=== PATIENT | female | born 1960 | race Caucasian/White ===

== ENCOUNTER → 2017-11-27 13:59 | Outpatient (CLI) | payer OTHER, SELFPAY ==
[2017-11-27 14:27] LABS: Urine Cocaine Negative (Negative); Urine Tetrahydrocannabinol Negative (Negative)
[2017-11-27 14:28] LABS: Urine Amphetamines Negative (Negative); Urine Barbiturates Negative (Negative); Urine Benzodiazepines Positive (Negative); Urine MDMA Negative (Negative); Urine Methadone Negative (Negative); Urine Methamphetamines Negative (Negative); Urine Morphine/Opi cutoff 2000 Negative (Negative); Urine Oxycodone Positive (Negative); Urine Phencyclidine Negative (Negative); Urine Tricyclic Antidepressant Negative (Negative)
== END ==
PROVIDERS: PCP Internal Medicine; Visit Provider Internal Medicine
DX: F11.10 Opioid abuse, uncomplicated (principal)
CPT/HCPCS: 80305

== ENCOUNTER → 2018-01-08 16:50 | Outpatient (CLI) | payer OTHER, SELFPAY ==
--- NOTE | 2018-01-08 16:52 | DI.RAD.S_ITS ---
PROCEDURE: XR LUMBAR SPINE 2-3V INDICATIONS: monitor surgical hardware placement TECHNIQUE: 3 views of the lumbar spine were acquired. COMPARISON: [facility], CT, CT LUMBAR SPINE WITHOUT CONTRAST, 09/11/2017, 12:09. [facility], , SPINE LUMB 2 OR 3VW, 01/24/2017, 10:49. [facility], , SPINE LUMB 2 OR 3VW, 08/22/2016, 14:49. [facility], , L-SPINE 2-3 VIEWS, 01/21/2016, 8:34. FINDINGS: Bones: 5 [id number] vertebrae are present. Moderate dextroscoliosis redemonstrated. Multilevel posterior/interbody fusion redemonstrated from the L2 through the S1 level with hardware in expected unchanged positions. Bony alignment is unchanged. No acute bony abnormality seen. No vertebral body compression fractures. No suspicious bony lesions. Soft tissues: Overlying bowel gas pattern is normal. No suspicious soft tissue calcifications. IMPRESSION: Stable postsurgical sequelae as above. Dictated by: Aubrey Mars [facility] Interpreted: Enoc Chris MD on 01/08/2018 at 17:19 Approved by: Enoc Chris M.D. on 01/09/2018 at 12:25
== END ==
PROVIDERS: PCP Internal Medicine; Visit Provider Internal Medicine
DX: M54.5 Low back pain (principal); G89.29 Other chronic pain; Z98.1 Arthrodesis status
CPT/HCPCS: 72100

== ENCOUNTER 2018-01-10 12:44 | Emergency (ER) | payer OTHER, SELFPAY ==
[2018-01-10 12:54] VITALS: BP 146/79; PULSE 81; RESP 18; TEMP 37; O2SAT 98; BMI 25.1
--- NOTE | 2018-01-10 13:11 | DI.RAD.S_ITS ---
PROCEDURE: XR CHEST 2V INDICATIONS: chest tightness TECHNIQUE: 2 views of the chest were acquired. COMPARISON: [facility], , XR CXR 2 VIEW, 11/01/2000, 9:12. FINDINGS: Surgical changes and devices: None. Lungs and pleura: No pleural effusions or pneumothorax. Lungs are clear. Mediastinum: Mediastinal contours are normal. Heart size is normal. Bones and chest wall: No suspicious bony abnormalities. Soft tissues appear unremarkable. Degenerative changes noted in thoracic spine. There is discectomy and posterior fusion lumbar spine. IMPRESSION: No acute cardiopulmonary disease. Dictated by: Christiano Carmen M.D. on 01/10/2018 at 13:47 Approved by: Christiano Carmen M.D. on 01/10/2018 at 13:47
[2018-01-10] MEDS: ASPIRIN 81 MG TAB 324 MG PO (13:16)
--- NOTE | 2018-01-10 13:40 | PC.NURSE ---
States is here for sinus infection. But since she was here she thought she would have her CP and a lump at the end of her sternum. Ekg and labs done in triage. States this has been going on for weeks
[2018-01-10 13:47] LABS: Add Manual Diff / Slide Review NO; Basophils Percent Auto 0.4 % (0-2); Eosinophils Percent Auto 1.6 % (2-4); Hematocrit 40.5 % (36-46); Hemoglobin 13.9 g/dL (12.0-16.0); Lymphocytes Percent Auto 22.1 % (25-40); Mean Corpuscular HGB Conc 34.3 % (30-36); Mean Corpuscular Hemoglobin 30.8 PG (26-34); Mean Corpuscular Volume 89.6 fL (80-100); Monocytes Percent Auto 7.1 % (3-14); Neutrophils Absolute Auto 4400 /uL (3000-5900); Neutrophils Percent Auto 68.8 % (50-75); Platelet Count 253 X10^3/uL (150-400); Red Blood Cell Count 4.52 X10^6/uL (4.0-5.2); Red Cell Distribution Width 12.6 % (11.6-14.8); White Blood Cell Count 6.3 X10^3/uL (4.5-11.0)
[2018-01-10 13:52] LABS: Prothrombin Time 11.3 SECONDS (10.1-12.7)
[2018-01-10 13:55] LABS: PTT Partial Thromboplastin Tim 33 SECONDS (26.4-36.2)
[2018-01-10 14:02] LABS: Alanine Aminotransferase 28 IU/L (9-52); Albumin 4.7 g/dL (3.5-5.0); Albumin Globulin Ratio 1.6 (1.0-2.8); Alkaline Phosphatase 63 U/L (38-126); Aspartate Aminotransferase 28 IU/L (14-36); Bilirubin Total 0.5 mg/dL (0.2-1.3); Blood Urea Nitrogen 13 mg/dL (7-17); Calcium 9.7 mg/dL (8.4-10.2); Carbon Dioxide 24 mmol/L (22-32); Chloride 106 mmol/L (98-107); Creatine Kinase 52 U/L (30-135); Estimated Glomerular Filt Rate > 60.0 mL/min (>60); Glucose 113 mg/dL (70-100); HEMOLYSIS < 15 (0-50); Lipase 154 U/L (23-300); Potassium 4.1 mmol/L (3.4-5.1); Sodium 144 mmol/L (137-145); Total Protein 7.7 g/dL (6.3-8.2)
[2018-01-10 14:18] LABS: Troponin I < 0.012 ng/mL (0.01-0.034)
--- NOTE | 2018-01-10 14:22 | ED_ITS ---
HPI - Chest Pain General Chief Complaint: Chest Pain Stated Complaint: CHEST TIGHTNESS,WEAKNESS,JAW PAIN,SINUS INFECTION Time Seen by Provider: 01/10/18 13:52 Source: patient Mode of arrival: ambulatory Limitations: no limitations History of Present Illness HPI narrative: Patient is a 57-year-old female who presents with a variety of complaints. She has had a left earache she has some sinus pain she had some chest discomfort she said she had a temperature tympanically over 101 over last 3 days. She overall does not feel well. She denies any productive cough. She was having some chest tightness but that has now improved. She feels like she has a sinus infection. MD complaint: chest pain Related Data Home Medications Medication Instructions Recorded Confirmed multivitamin with minerals 1 tab PO QDAY #0 08/04/11 01/10/18 magnesium oxide 400 mg PO QPM #0 01/21/16 01/10/18 ascorbic acid (vitamin C) 500 mg PO QDAY #0 11/29/16 01/10/18 calcium carbonate 1 tab PO DIRECTED #0 11/29/16 01/10/18 vitamin B complex [B 1 tab PO DAILY #0 11/29/16 01/10/18 Complex-Vitamin B12] coenzyme Q10 [Co Q-10] 100 mg PO QDAY #0 03/23/17 01/10/18 cholecalciferol (vitamin D3) 10,000 unit PO DAILY #0 06/01/17 01/10/18 Iron Melts 1 tab SUBLINGUAL DAILY 01/10/18 01/10/18 bimatoprost [Latisse] 1 applic TOPICAL BEDTIME 01/10/18 01/10/18 krill oil 1 cap PO DAILY 01/10/18 01/10/18 Previous Rx's Medication Instructions Recorded progesterone micronized 200 mg PO BID #60 cap 01/22/17 estradiol-norethindrone acet 1 tab PO Q DAY #3 pac 05/23/17 [Activella] diclofenac sodium 50 mg PO BIDCC #60 tab 08/09/17 triamterene 37.5 1 tab PO DAILY #30 tab 10/15/17 mg-hydrochlorothiazide 25 mg tablet hydroxyzine HCl 50 mg tablet 50 mg PO BEDTIME #30 tab 11/26/17 cyclobenzaprine 10 mg tablet 10 mg PO Q8HP PRN #20 tab 12/17/17 oxycodone 5 mg tablet 5 mg PO TID #90 tab 12/25/17 tramadol 50 mg tablet 50 mg PO Q6H #30 tab 12/25/17 trazodone 100 mg tablet 100 mg PO DAILY #30 tab 12/25/17 zolpidem 10 mg tablet 10 mg PO BEDTIME PRN #15 tab 12/25/17 doxycycline monohydrate 100 mg PO BID #14 cap 01/10/18 Allergies Allergy/AdvReac Type Severity Reaction Status Date / Time latex [LATEX] Allergy Unknown MOUTH Verified 01/10/18 13:00 BECAME RAW gabapentin [GABAPENTIN] AdvReac Mild cognitive Verified 01/10/18 13:00 fog related to dose metoprolol [METOPROLOL] AdvReac Mild abd Verified 01/10/18 13:00 distress and myalgias amoxicillin [AMOXICILLIN] AdvReac Unknown Pt claims Verified 01/10/18 13:00 caused her throat to close up Review of Systems Review of Systems All systems reviewed & are unremarkable except as noted in HPI and below Constitutional Reports body ache(s), Reports chills and Reports fever(s) Eyes Denies change in vision, Denies eye discharge, Denies irritation and Denies loss of vision ENT Ears, Nose, Mouth, and Throat: Reports as per HPI, Denies dizziness, Reports otalgia, Reports facial pain and Denies tongue swelling Cardiovascular Reports chest pain Respiratory Denies cough, Denies excessive phlegm production and Denies stridor Gastrointestinal Gastrointestinal: Denies diarrhea and Denies loose stools Integumentary/Breasts Denies pruritus, Denies erythema, Denies rash and Denies wounds Neurologic Denies dizziness and Denies loss of vision Allergic/Immunologic Denies tongue swelling PFSH Medical History ADHD (attention deficit hyperactivity disorder) (Chronic) Anxiety (Chronic) Hypertension (Chronic) 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) ANNABELLA (stress urinary incontinence, female) (Resolved) Surgical History History of abdominoplasty (Resolved 2003) History of abdominoplasty (Resolved 2010) History of stress incontinence procedure using tension free vaginal tape ( Resolved 08/16/09) Status post colonoscopy (Resolved 03/01/12) Status post laminectomy (Resolved 2015) Social History Smoking Status: Former smoker Exam Initial Vital Signs Initial Vital Signs: Vital Signs Temperature 98.6 F 01/10/18 12:54 Pulse Rate 81 01/10/18 12:54 Respiratory Rate 18 01/10/18 12:54 Blood Pressure 146/79 H 01/10/18 12:54 Pulse Oximetry 98 01/10/18 12:54 GENERAL: Anxious female alert oriented x3 HEENT: Head atraumatic,EOMI, pupils reactive, face symmetric, moist mucous membranes, tender over frontal sinuses EARS: Tympanic membranes visualized, no erythema or bulging, no hemotympanum CARDIOVASCULAR: Regular rate and rhythm without murmurs, rubs or gallops. RESPIRATORY: Breath sounds equal bilaterally, no wheezes rales or rhonchi. ABDOMEN: Soft, nontender. Normoactive bowel sounds all 4 quadrants. No guarding or rebound. EXTREMITIES: Normal range of motion, no clubbing or edema. Neurovascularly intact NEUROLOGICAL: Alert and oriented x4.Normal gait and speech. SKIN: Warm, dry, no laceration, no petechiae, no rashes or lesions. Course Orders Ordered: ED Orders 01/10/18 13:11 Chest [XR chest 2V] Stat EKG-12 Lead Stat 01/10/18 13:20 Complete Blood Count AUTO DIFF Stat Comprehensive Metabolic Panel Stat Lipase Stat Partial Thromboplastin Time Stat Prothrombin Time INR Stat Troponin & CK Cardiac Panel Stat Discontinued Medications Aspirin (Aspirin Chew) 324 mg PO NOW ONE Stop: 01/10/18 13:14 Last Admin: 01/10/18 13:16 Dose: 324 mg Vital Signs - 8 hr 01/10/18 12:54 01/10/18 14:29 01/10/18 14:39 Temperature 98.6 F Pulse Rate 81 66 59 L Respiratory Rate 18 14 16 Blood Pressure 146/79 H 118/84 Blood Pressure [Right Arm] 118/84 Pulse Oximetry 98 99 98 MDM - Chest Pain Lab Data Attestation: I reviewed the patient's lab results. Result diagrams: 01/10/18 13:20 01/10/18 13:20 Lab Results 01/10/18 01/10/18 01/10/18 Range/Units 13:20 13:20 13:20 WBC 6.3 (4.5-11.0) X10^3/uL RBC 4.52 (4.0-5.2) X10^6/uL Hgb 13.9 (12.0-16.0) g/dL Hct 40.5 (36-46) % MCV 89.6 (80-100) fL MCH 30.8 (26-34) PG MCHC 34.3 (30-36) % RDW 12.6 (11.6-14.8) % Plt Count 253 (150-400) X10^3/uL Neut % (Auto) 68.8 (50-75) % Lymph % (Auto) 22.1 L (25-40) % [place] % (Auto) 7.1 (3-14) % Eos % (Auto) 1.6 L (2-4) % Baso % (Auto) 0.4 (0-2) % Neut # (Auto) 4400 (6106-9578) /uL PT 11.3 (10.1-12.7) SECONDS INR 1.0 (0.9-1.3) APTT 33 (26.4-36.2) SECONDS Sodium 144 (137-145) mmol/L Potassium 4.1 (3.4-5.1) mmol/L Chloride 106 (98-107) mmol/L Carbon Dioxide 24 (22-32) mmol/L BUN 13 (7-17) mg/dL Creatinine 0.50 L (0.52-1.04) mg/dL Estimated GFR > 60.0 (>60) mL/min BUN/Creatinine Ratio 26.0 H (6-22) Glucose 113 H (70-100) mg/dL Calcium 9.7 (8.4-10.2) mg/dL Total Bilirubin 0.5 (0.2-1.3) mg/dL AST 28 (14-36) IU/L ALT 28 (9-52) IU/L Alkaline Phosphatase 63 (38-126) U/L Total Creatine Kinase 52 (30-135) U/L Troponin I < 0.012 (0.01-0.034) ng/mL Total Protein 7.7 (6.3-8.2) g/dL Albumin 4.7 (3.5-5.0) g/dL Globulin 3.0 (1.7-4.1) g/dL Albumin/Globulin Ratio 1.6 (1.0-2.8) Lipase 154 (23-300) U/L Urine Dip Bedside Urine Glucose Negative Bedside Urine Bilirubin - Negative Bedside Urine Ketone - Negative Urine Specific Peterson 1.015 Bedside Urine Occult Blood - Negative Bedside Urine pH 6.0 Bedside Urine Protein - Negative Bedside Urine Urobilinogen - Negative Bedside Urine Nitrite - Negative Bedside Urine Leukocytes - Negative Esterase Imaging Data Chest x-ray: Radiologist's impression: PROCEDURE: XR CHEST 2V INDICATIONS: chest tightness TECHNIQUE: 2 views of the chest were acquired. COMPARISON: [facility], , XR CXR 2 VIEW, 11/01/2000, 9:12. FINDINGS: Surgical changes and devices: None. Lungs and pleura: No pleural effusions or pneumothorax. Lungs are clear. Mediastinum: Mediastinal contours are normal. Heart size is normal. Bones and chest wall: No suspicious bony abnormalities. Soft tissues appear unremarkable. Degenerative changes noted in thoracic spine. There is discectomy and posterior fusion lumbar spine. IMPRESSION: No acute cardiopulmonary disease. Dictated by: Christiano Carmen M.D. on 01/10/2018 at 13:47 ECG Data Attestation: I personally reviewed and interpreted this ECG as follows: Prior ECG tracings: available for review Interpretation: Normal sinus rhythm rate [address] changes artifact noted no T- wave inversions similar to previous EKG MT interval 137, QRS 87, QTC 391 MDM Narrative Medical decision making narrative: Patient overall is feeling better. She really is complaining of her sinuses she has had temperature. At this time will treat for sinusitis. Her chest pain seems to have resolved. Discharge Plan Departure Patient Disposition: Home Clinical Impression: Atypical chest pain, Sinusitis Discharge Date/Time: 01/10/18 14:39 Interventions: ED Discharge Assessment Last Done: 01/10/18 14:39 Instructions: Sinusitis, DI for Atypical Chest Pain Activity Restrictions/Additional Instructions: *You have been diagnosed with atypical chest pain, sinusitis *What to do: Rest, fever control, increase fluids *Continue to take medications as directed Doxycycline 100 mg twice a day for 7 days--faxed to [facility] in and [place] *Follow up with your primary care provider in 2-3 days *Return to ER if you should have any new, worsening or concerning symptoms Prescriptions: New doxycycline monohydrate 100 mg capsule 100 mg PO BID Qty: 14 RF: 0 No Action multivitamin with minerals Tablet 1 tab PO QDAY Qty: 0 RF: 0 magnesium oxide 400 MG tablet 400 mg PO QPM Qty: 0 RF: 0 ascorbic acid (vitamin C) 500 MG tablet 500 mg PO QDAY Qty: 0 RF: 0 calcium carbonate 200 MG tablet,chewable 1 tab PO DIRECTED Qty: 0 RF: 0 vitamin B complex [B Complex-Vitamin B12] 1 EACH tablet 1 tab PO DAILY Qty: 0 RF: 0 progesterone micronized 200 MG capsule 200 mg PO BID Qty: 60 RF: 11 coenzyme Q10 [Co Q-10] 100 MG capsule 100 mg PO QDAY Qty: 0 RF: 0 estradiol-norethindrone acet [Activella] 1 MG/0.5 MG tablet 1 tab PO Q DAY Qty: 3 RF: 3 cholecalciferol (vitamin D3) 10,000 UNIT tablet 10,000 unit PO DAILY Qty: 0 RF: 0 diclofenac sodium 50 MG tablet,delayed release (DR/EC) 50 mg PO BIDCC Qty: 60 RF: 5 triamterene-hydrochlorothiazid 37.5-25 mg tablet 1 tab PO DAILY Qty: 30 RF: 5 hydroxyzine HCl 50 mg tablet 50 mg PO BEDTIME Qty: 30 RF: 1 cyclobenzaprine 10 mg tablet 10 mg PO Q8HP PRN (Reason: muscle spasm) Qty: 20 RF: 0 trazodone 100 mg tablet 100 mg PO DAILY Qty: 30 RF: 1 zolpidem 10 mg tablet 10 mg PO BEDTIME PRN (Reason: insomnia) Qty: 15 RF: 0 oxycodone 5 mg tablet 5 mg PO TID Qty: 90 RF: 0 tramadol 50 mg tablet 50 mg PO Q6H Qty: 30 RF: 0 bimatoprost [Latisse] 0.03 % Drops With Applicator 1 applic Topical BEDTIME RF: 0 Iron Melts 1 tab Sublingual DAILY RF: 0 krill oil 1 cap PO DAILY RF: 0 Referrals: Julio Cesar Cosby MD [Primary Care Provider] -
[2018-01-10 14:29] VITALS: BP 118/84; PULSE 66; RESP 14; O2SAT 99
[2018-01-10 14:39] VITALS: BP 118/84; PULSE 59; RESP 16; O2SAT 98
== END 2018-01-10 14:39 | disposition home or self-care (01) ==
PROVIDERS: Emergency Provider Emergency Medicine; PCP Internal Medicine
DX: J32.9 Chronic sinusitis, unspecified (principal); R07.89 Other chest pain
CPT/HCPCS: 36415; 71046; 80053; 81003; 82550; 82553; 83690; 84484; 85025; 85610; 85730; 93005; 93010; 99282; 99285

== ENCOUNTER 2018-01-19 17:16 | Emergency (ER) | payer OTHER, SELFPAY ==
[2018-01-19 17:21] VITALS: BP 168/85; PULSE 87; RESP 20; TEMP 37; O2SAT 98; BMI 26.4
--- NOTE | 2018-01-19 20:03 | ED.FEVER ---
HPI - Fever General Chief Complaint: Fever Stated Complaint: SENT FROM WALK IN FOR FLUIDS Time Seen by Provider: 01/19/18 19:40 Source: patient Mode of arrival: ambulatory Limitations: no limitations History of Present Illness HPI Narrative: Patient is a 57-year-old female with a history of sinus infection. She states that she finished a course of doxycycline recently. She went to the walk-in clinic today for continued headache and sinus pressure. Patient also states that she felt dehydrated. She states she was told that she could come over here from the walk-in clinic for IV fluids. No sore throat. Has had nausea. Has not drank anything since 2 o'clock this afternoon secondary to the nausea. She did receive Zofran in the walk-in clinic prior to arrival here which she states for to care for symptoms. Continues to have a frontal headache. And sinus congestion. She is not on any decongestants. Related Data Home Medications Medication Instructions Recorded Confirmed multivitamin with minerals 1 tab PO QDAY #0 08/04/11 01/19/18 magnesium oxide 400 mg PO QPM #0 01/21/16 01/19/18 ascorbic acid (vitamin C) 500 mg PO QDAY #0 11/29/16 01/19/18 calcium carbonate 1 tab PO DIRECTED #0 11/29/16 01/19/18 vitamin B complex [B 1 tab PO DAILY #0 11/29/16 01/19/18 Complex-Vitamin B12] coenzyme Q10 [Co Q-10] 100 mg PO QDAY #0 03/23/17 01/19/18 cholecalciferol (vitamin D3) 10,000 unit PO DAILY #0 06/01/17 01/19/18 Iron Melts 1 tab SUBLINGUAL DAILY 01/10/18 01/19/18 bimatoprost [Latisse] 1 applic TOPICAL BEDTIME 01/10/18 01/19/18 krill oil 1 cap PO DAILY 01/10/18 01/19/18 Previous Rx's Medication Instructions Recorded estradiol-norethindrone acet 1 tab PO Q DAY #3 pac 05/23/17 [Activella] diclofenac sodium 50 mg PO BIDCC #60 tab 08/09/17 triamterene 37.5 1 tab PO DAILY #30 tab 10/15/17 mg-hydrochlorothiazide 25 mg tablet hydroxyzine HCl 50 mg tablet 50 mg PO BEDTIME #30 tab 11/26/17 cyclobenzaprine 10 mg tablet 10 mg PO Q8HP PRN #20 tab 12/17/17 oxycodone 5 mg tablet 5 mg PO TID #90 tab 12/25/17 tramadol 50 mg tablet 50 mg PO Q6H #30 tab 12/25/17 trazodone 100 mg tablet 100 mg PO DAILY #30 tab 12/25/17 zolpidem 10 mg tablet 10 mg PO BEDTIME PRN #15 tab 12/25/17 doxycycline monohydrate 100 mg PO BID #14 cap 01/10/18 progesterone micronized 200 mg 200 mg PO BID #60 cap 01/18/18 capsule mometasone [Nasonex] 2 spray NASAL DAILY #17 gram 01/19/18 ondansetron HCl 8 mg tablet 8 mg PO TID PRN #20 tab 01/19/18 Allergies Allergy/AdvReac Type Severity Reaction Status Date / Time latex [LATEX] Allergy Unknown MOUTH Verified 01/19/18 15:59 BECAME RAW gabapentin [GABAPENTIN] AdvReac Mild cognitive Verified 01/19/18 15:59 fog related to dose metoprolol [METOPROLOL] AdvReac Mild abd Verified 01/19/18 15:59 distress and myalgias amoxicillin [AMOXICILLIN] AdvReac Unknown Pt claims Verified 01/19/18 15:59 caused her throat to close up Review of Systems Constitutional Reports fatigue, Reports fever(s) and Reports headache(s) ENT Ears, Nose, Mouth, and Throat: Denies vertigo, Reports headache(s), Reports sinus pain, Reports sinus pressure, Denies sore throat and Denies throat swelling Cardiovascular Denies chest pain and Denies dyspnea Respiratory Denies dyspnea Gastrointestinal Gastrointestinal: Denies abdominal pain Musculoskeletal Denies myalgias and Denies arthralgias Integumentary/Breasts Denies lesions and Denies rash Neurologic Denies vertigo and Reports headache(s) Endocrine Reports fatigue Hematologic/Lymphatic Denies easy bleeding and Denies easy bruising Allergic/Immunologic Denies throat swelling [facility] Medical History ADHD (attention deficit hyperactivity disorder) (Chronic) Anxiety (Chronic) Hypertension (Chronic) 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) ANNABELLA (stress urinary incontinence, female) (Resolved) Surgical History History of abdominoplasty (Resolved 2003) History of abdominoplasty (Resolved 2010) History of stress incontinence procedure using tension free vaginal tape (Resolved 08/16/09) Status post colonoscopy (Resolved 03/01/12) Status post laminectomy (Resolved 2015) Family History Father Alcoholism Grandmother Breast cancer Mother Coronary artery disease Family/Other Breast cancer Social History Smoking Status: Former smoker Exam Initial Vital Signs Initial Vital Signs: Vital Signs Temperature 98.6 F 01/19/18 17:21 Pulse Rate 87 01/19/18 17:21 Respiratory Rate 20 01/19/18 17:21 Blood Pressure 168/85 H 01/19/18 17:21 Pulse Oximetry 98 01/19/18 17:21 Const General: cooperative, healthy appearing, well developed, well groomed and No acute distress Orientation: alert, awake and oriented x3 HENMT Head: normal to inspection, normocephalic and atraumatic Ears: TM's normal bilaterally Nose: external nose normal Face and sinus: normal facial exam Mouth: oral mucosae normal Resp Effort & Inspection: normal respiratory effort and able to speak in complete sentences Auscultation: clear to auscultation bilaterally Cardio Rate: regular rate Rhythm: regular rhythm Pulses: radial pulses present Skin Lesions: no lesions Rashes: no rashes Neuro General: alert, awake and oriented x3 Extrem General: normal to inspection and capillary refill normal Psych Appearance: grossly normal and well kempt Course Orders Ordered: Discontinued Medications Sodium Chloride (Normal Saline 0.9%) 1,000 mls @ 1,000 mls/hr IV BOLUS ONE Stop: 01/19/18 21:02 Last Infusion: 01/19/18 22:05 Dose: 0 mls/hr Admin: 01/19/18 20:30 Dose: 1,000 mls/hr Vital Signs - 8 hr 01/19/18 20:53 01/19/18 22:33 Temperature 99.5 F 98.4 F Pulse Rate 82 86 Respiratory Rate 15 18 Blood Pressure 119/66 Blood Pressure [Right Arm] 144/71 H Pulse Oximetry 100 100 MDM - Fever MDM Narrative Medical decision making narrative: Patient with history and physical consistent with sinus congestion. I informed her that given the fact that her nausea is better and the way that her vital signs look that is not necessary to get IV fluids here in the emergency department. The patient did request IV fluids. She has also completed a course of doxycycline. I suspect that her sinus congestion is viral related. No indication for continued antibiotics. She was able to tolerate oral intake. She does have nausea medication at home. We did discuss the importance of her taking decongestants. She was given return precautions. She expressed understanding and agreement Discharge Plan Departure Patient Disposition: Home Clinical Impression: Upper respiratory infection Discharge Date/Time: 01/19/18 22:33 Interventions: ED Discharge Assessment Last Done: 01/19/18 22:33 Instructions: DI for Viral Upper Respiratory Infection -- Adult Activity Restrictions/Additional Instructions: Recommend that you start taking a antihistamine such as Claritin/Analisa/Zyrtec or the generic versions of these medications like we discussed. Also recommend you start the Nasonex like we discussed. Call your primary care doctor for a follow-up. Return to the emergency department for any new or worsening symptoms Prescriptions: New mometasone [Nasonex] 50 mcg/actuation spray,non-aerosol 2 spray NASAL DAILY Qty: 17 RF: 0 No Action ondansetron HCl [Zofran] 8 mg tablet 8 mg PO TID PRN (Reason: nausea and vomiting) Qty: 20 RF: 0 multivitamin with minerals Tablet 1 tab PO QDAY Qty: 0 RF: 0 magnesium oxide 400 MG tablet 400 mg PO QPM Qty: 0 RF: 0 ascorbic acid (vitamin C) 500 MG tablet 500 mg PO QDAY Qty: 0 RF: 0 calcium carbonate 200 MG tablet,chewable 1 tab PO DIRECTED Qty: 0 RF: 0 vitamin B complex [B Complex-Vitamin B12] 1 EACH tablet 1 tab PO DAILY Qty: 0 RF: 0 coenzyme Q10 [Co Q-10] 100 MG capsule 100 mg PO QDAY Qty: 0 RF: 0 estradiol-norethindrone acet [Activella] 1 MG/0.5 MG tablet 1 tab PO Q DAY Qty: 3 RF: 3 cholecalciferol (vitamin D3) 10,000 UNIT tablet 10,000 unit PO DAILY Qty: 0 RF: 0 diclofenac sodium 50 MG tablet,delayed release (DR/EC) 50 mg PO BIDCC Qty: 60 RF: 5 triamterene-hydrochlorothiazid 37.5-25 mg tablet 1 tab PO DAILY Qty: 30 RF: 5 hydroxyzine HCl 50 mg tablet 50 mg PO BEDTIME Qty: 30 RF: 1 cyclobenzaprine 10 mg tablet 10 mg PO Q8HP PRN (Reason: muscle spasm) Qty: 20 RF: 0 progesterone micronized 200 mg capsule 200 mg PO BID Qty: 60 RF: 11 trazodone 100 mg tablet 100 mg PO DAILY Qty: 30 RF: 1 zolpidem 10 mg tablet 10 mg PO BEDTIME PRN (Reason: insomnia) Qty: 15 RF: 0 oxycodone 5 mg tablet 5 mg PO TID Qty: 90 RF: 0 tramadol 50 mg tablet 50 mg PO Q6H Qty: 30 RF: 0 bimatoprost [Latisse] 0.03 % Drops With Applicator 1 applic Topical BEDTIME RF: 0 Iron Melts 1 tab Sublingual DAILY RF: 0 krill oil 1 cap PO DAILY RF: 0 doxycycline monohydrate 100 mg capsule 100 mg PO BID Qty: 14 RF: 0
[2018-01-19] MEDS: SODIUM CHLORIDE 0.9% 1,000 ML 1000 ML IV (20:30)
[2018-01-19 20:53] VITALS: BP 144/71; PULSE 82; RESP 15; TEMP 37.5; O2SAT 100
[2018-01-19 22:33] VITALS: BP 119/66; PULSE 86; RESP 18; TEMP 36.9; O2SAT 100
== END 2018-01-19 22:33 | disposition home or self-care (01) ==
PROVIDERS: Emergency Provider Emergency Medicine; PCP Family Medicine
DX: J06.9 Acute upper respiratory infection, unspecified (principal)
CPT/HCPCS: 36591; 96360; 96361; 99283; 99284

== ENCOUNTER → 2018-01-23 12:29 | Outpatient (CLI) | payer OTHER, SELFPAY ==
[2018-01-23 12:34] LABS: Bacteria Urine None Seen; RBC Urine None Seen (0-5/HPF); WBC Urine None Seen (0-5/HPF)
[2018-01-23 12:44] LABS: Add Manual Diff / Slide Review NO; Basophils Percent Auto 0.3 % (0-2); Eosinophils Percent Auto 1.2 % (2-4); Hematocrit 39.6 % (36-46); Hemoglobin 13.5 g/dL (12.0-16.0); Lymphocytes Percent Auto 20.1 % (25-40); Mean Corpuscular HGB Conc 34.2 % (30-36); Mean Corpuscular Hemoglobin 30.5 PG (26-34); Mean Corpuscular Volume 89.1 fL (80-100); Monocytes Percent Auto 6.2 % (3-14); Neutrophils Absolute Auto 5600 /uL (3000-5900); Neutrophils Percent Auto 72.2 % (50-75); Platelet Count 300 X10^3/uL (150-400); Red Blood Cell Count 4.44 X10^6/uL (4.0-5.2); Red Cell Distribution Width 12.4 % (11.6-14.8); White Blood Cell Count 7.7 X10^3/uL (4.5-11.0)
[2018-01-23 13:03] LABS: Appearance Urine UA CLEAR; Bilirubin Urine UA NEGATIVE (NEGATIVE); Color Urine UA YELLOW; Glucose Urine UA NEGATIVE (Normal); Ketones Urine UA NEGATIVE (NEGATIVE); Leukocyte Esterase Urine UA NEGATIVE (NEGATIVE); Nitrite Urine UA Negative (Negative); Occult Blood Urine UA NEGATIVE (Negative); Protein Urine UA NEGATIVE (Negative); Urobilinogen Urine UA 0.2 E.U./dL (0.2); pH Urine UA 7.5 (4.5-8.0)
[2018-01-23 13:19] LABS: Culture Indicated Urine Cult Not Indicated; Squamous Epithelial Cell Urine 0-1 /HPF
[2018-01-23 13:23] LABS: Alanine Aminotransferase 40 IU/L (9-52); Albumin 4.5 g/dL (3.5-5.0); Albumin Globulin Ratio 1.6 (1.0-2.8); Alkaline Phosphatase 59 U/L (38-126); Aspartate Aminotransferase 29 IU/L (14-36); Bilirubin Total 0.5 mg/dL (0.2-1.3); Blood Urea Nitrogen 10 mg/dL (7-17); Calcium 9.8 mg/dL (8.4-10.2); Carbon Dioxide 31 mmol/L (22-32); Chloride 100 mmol/L (98-107); Estimated Glomerular Filt Rate > 60.0 mL/min (>60); Globulin 2.8 g/dL (1.7-4.1); Glucose 107 mg/dL (70-100); HEMOLYSIS 21 (0-50); Potassium 4.4 mmol/L (3.4-5.1); Sodium 143 mmol/L (137-145); Total Protein 7.3 g/dL (6.3-8.2)
== END ==
PROVIDERS: Visit Provider Internal Medicine
DX: B34.9 Viral infection, unspecified (principal); R68.83 Chills (without fever)
CPT/HCPCS: 36415; 80053; 81001; 85025

== ENCOUNTER → 2018-01-28 14:29 | Outpatient (CLI) | payer OTHER, SELFPAY ==
[2018-01-28 17:17] LABS: Clostridium Difficile Tox PCR Negative for C. diff
[2018-01-30 16:28] LABS: Fecal Immunochemical Test NOT DETECTED
== END ==
PROVIDERS: Visit Provider Internal Medicine
DX: R10.9 Unspecified abdominal pain (principal); R19.7 Diarrhea, unspecified
CPT/HCPCS: 82274; 87493

== ENCOUNTER → 2018-02-12 14:02 | Outpatient (CLI) | payer OTHER, SELFPAY ==
[2018-02-12 19:28] LABS: Hemoglobin A1C% w Est Avg Glu 5.4 % (4.0-6.0)
== END ==
PROVIDERS: PCP Family Medicine; Visit Provider Registered Nurse
DX: R35.8 Other polyuria (principal); R63.1 Polydipsia
CPT/HCPCS: 36415; 83036

== ENCOUNTER → 2018-03-01 08:02 | Outpatient (CLI) | payer OTHER, SELFPAY ==
[2018-03-01 09:47] LABS: HEMOLYSIS < 15 (0-50); Iron 76 ug/dL (37-170)
[2018-03-01 09:51] LABS: Cholesterol 191 mg/dL (140-199); HDL Cholesterol 48 mg/dL (40-60); LDL Cholesterol Calculated 124 mg/dL (<100); Lipase 166 U/L (23-300); Magnesium 2.1 mg/dL (1.6-2.3); Triglycerides 93 mg/dL (35-150)
[2018-03-01 10:00] LABS: Percent Iron Saturation 23 % (15-50); Total Iron Binding Capacity 327 ug/dL (265-497); Transferrin 262 mg/dL (206-381)
[2018-03-01 10:07] LABS: Vitamin D 25 Hydroxy (D3) 81.6 ng/mL (30.0-100.0)
[2018-03-01 10:42] LABS: Vitamin B12 > 1000 pg/mL (239-931)
== END ==
PROVIDERS: Visit Provider Student in an Organized Health Care Education/Training Program
DX: R19.7 Diarrhea, unspecified (principal); Z13.220 Encounter for screening for lipoid disorders
CPT/HCPCS: 36415; 80061; 82306; 82607; 83516; 83540; 83550; 83690; 83735

== ENCOUNTER → 2018-06-12 14:45 | Outpatient (CLI) | payer OTHER, SELFPAY ==
--- NOTE | 2018-06-12 15:01 | DI.RAD.S_ITS ---
PROCEDURE: XR HIP W PEL IF DONE LT 2V INDICATIONS: Hip pain, concern for ankylosing spondylitis TECHNIQUE: AP pelvis with lateral view of the left hip. COMPARISON: None. FINDINGS: Bones: No fractures or dislocations. Mild symmetric hip joint osteoarthritis. Prior spine surgery has been performed, partially visualized. Pelvic ring appears intact. No suspicious bony lesions. Soft tissues: The visualized bowel gas pattern is normal. No suspicious soft tissue calcifications. IMPRESSION: Mild symmetric hip joint osteoarthritis found, prior spine surgery. No trauma seen. By this examination sacroiliac joint spondyloarthropathy is not seen. Dictated by: Enoc Chris M.D. on 06/12/2018 at 16:30 Approved by: Enoc Chris M.D. on 06/12/2018 at 16:31
--- NOTE | 2018-06-12 15:01 | DI.RAD.S_ITS ---
PROCEDURE: XR KNEE LT 3V INDICATIONS: Left knee joint pain TECHNIQUE: 3 views of the knee were acquired. COMPARISON: [facility], , KNEE 3V LEFT, 01/14/2016, 14:52. [facility], , KNEE 3V RIGHT, 06/03/2007, 14:51. FINDINGS: Bones: No fractures or dislocations. No suspicious bony lesions. Soft tissues: No joint effusion. No suspicious soft tissue calcifications. IMPRESSION: Minimal joint space narrowing, similar to that previously present in January of 2016. No trauma foun, no effusion, no intra-articular loose body. Dictated by: Enoc Chris M.D. on 06/12/2018 at 16:32 Approved by: Enoc Chris M.D. on 06/12/2018 at 16:32
[2018-06-15 18:26] LABS: HLA B27 NEGATIVE (Negative)
[2018-06-16 00:19] LABS: ANA Screen NEGATIVE (Negative); DNA Antibody Crithidia IFA NEGATIVE (Negative); Rheumatoid Factor <14 IU/mL; Sjogren Antiboday SS-A <1.0 NEG AI (<1.0 NEGATIVE); Sjogren Antiboday SS-B <1.0 NEG AI (<1.0 NEGATIVE); Sm Antibody <1.0 NEG AI (<1.0 NEGATIVE); Sm/RNP Antibody <1.0 NEG AI (<1.0 NEGATIVE)
== END ==
PROVIDERS: PCP Student in an Organized Health Care Education/Training Program; Visit Provider Student in an Organized Health Care Education/Training Program
DX: M16.0 Bilateral primary osteoarthritis of hip (principal); M25.50 Pain in unspecified joint; M45.9 Ankylosing spondylitis of unspecified sites in spine; M25.562 Pain in left knee
CPT/HCPCS: 36415; 73502; 73562; 86038; 86140; 86430; 86812

== ENCOUNTER 2018-06-19 09:44 | Outpatient (CLI) | payer OTHER, SELFPAY ==
[2018-06-19] VITALS (8 sets, daily range): BP systolic 101–118; BP diastolic 47–82; PULSE 59–72; RESP 16; TEMP 36.7; O2SAT 96–100
--- NOTE | 2018-06-19 09:45 | DI.RAD.S_ITS ---
PROCEDURE: PAIN C/T INTERLAMINAR INJECT INDICATIONS: SPINAL STENOSIS FINDINGS: Fluoroscopic spot filming was performed to verify placement of spinal needles at the T12-L1 intralaminar notch level, as labeled on the films. Appropriate location(s) of the needle tip(s) was confirmed by injection of iodinated contrast. IMPRESSION: Successful needle tip localization for dorsal injection into the epidural space, epidural steroid injection. Dictated by: Enoc Chris M.D. on 06/19/2018 at 12:46 Approved by: Enoc Chris M.D. on 06/19/2018 at 12:47
[2018-06-19] MEDS: MIDAZOLAM 5 MG/5 ML VIAL IV (10:35)
[2018-06-19] MEDS: BUPIVACAINE 0.25% (PF) VIAL 2 ML INJ (10:45)
[2018-06-19] MEDS: fentaNYL 100 MCG/2 ML INJ 50 MCG IV (10:45)
[2018-06-19] MEDS: DEXAMETHASONE 10 MG/ML VIAL 30 MG INJ (10:46)
[2018-06-19] MEDS: IOPAMIDOL 15 ML VIAL 3 ML INJ (10:46)
--- NOTE | 2018-06-19 10:49 | PC.NURSE ---
ASSISTING PT OFF TABLE AND TRANSPORTING TO POST PROC AREA IN STABLE CONDITION
--- NOTE | 2018-06-19 11:00 | P.PCN_ITS ---
Procedures Date/Time Date of procedure: 06/19/18 Time of procedure: 10:57 General Procedure description: Preop diagnosis: Thoracic stenosis with HNP Postprocedure diagnosis: Thoracic stenosis with HNP Physician: Issac Gaspar D.O. Indications: Xiao is referred by Dr. Toure for treatment of thoracic DDD/DJD with radiculopathy Description of procedure: Fluoroscopic guided, contrast controlled T12/L1 translaminar epidural steroid i njection with conscious sedation. Following denial of allergy review potential side effects and complications, including, but not necessarily limited to, infection, allergic reaction, local tissue breakdown, temporary as well as permanent nerve injury, stroke, paralysis and possible , the patient indicated that they understood and agreed to proceed. An informed consent document was signed by the patient, witnessed by the nurse, and placed in the patient's chart. Additionally other treatment options including modalities, medications and physical therapy were reviewed with the patient. After review of previous anaesthesic history and IV conscious sedation the patient was deemed safe to proceed with todays procedure with IV conscious sedation as ASA class II designation. Safety time-out was performed to confirm patient ID, procedure to be performed and site of procedure. IV sedation was accomplished with a combination of 3mg of Versed and 50mcg of Fentanyl administered by the RN after DO order, titrated to patient comfort during the course of the procedure while the patient remained responsive to all verbal commands In the prone position, following sterile prep and drape of the thoracic region the T12/L1 translaminar space was identified fluoroscopically. The skin was anesthetized via 25 gauge 20 mm sheath with 1% lidocaine solution. At this point a 20 gauge epidural needle was atraumatically introduced and advanced under fluoroscopic guidance into the region of the T12/L1 translaminar space depth was confirmed on lateral view. Radiographic data, including multiple fluoroscopic views of the thoracic spine, reveals spinal needle at the T12/L1 translaminar space. Lateral views then showed the placement of the needle in the epidural space. Subsequent view show contrast material flowing superiorly and inferiorly in the epidural space. No vascular or intrathecal uptake is observed. At this point using loss of resistance technique with saline and the epidural space was entered. This was confirmed followed negative aspiration and injection of approximately 1.5 cc of Isovue 200 showed excellent epidural flow without vascular or intrathecal uptake. At this point, 1 cc of 1% lidocaine solution was admitted as a test dose and the patient was observed for an appropriate period of time without signs or symptoms of complications, including abdominal pain, shortness of breath, bilateral upper and lower extremity weakness, nausea and vomiting, prior to steroid injection. Subsequently, 3 cc or 30 mg of dexamethasone was then injected without incident. The patient tolerated the procedure well without signs of complications and subsequently was transferred to the recovery room for further monitoring. The patient was then transferred to the recovery area with their observed for an appropriate time after the injection. Patient reported a VAS score of 7 prior to the procedure and postprocedure VAS of 2. Total fluoroscopy time: 56.3 sec Total conscious sedation time: 24 min Issac Gaspar D.O. Complications: none
--- NOTE | 2018-06-19 11:17 | PC.NURSE ---
pt increase alertness, tolerating drinking fluids and snacking.
--- NOTE | 2018-06-19 11:18 | PC.NURSE ---
rtr from post procedure, pt alert and awake, able to transfer self from w/c to recliner, assuming care from ervin hyde.
--- NOTE | 2018-06-19 11:19 | PC.NURSE ---
waiting for ride home, pt resting , nad.
== END 2018-06-19 11:38 ==
LOC: RAD 09:44
PROVIDERS: PCP Student in an Organized Health Care Education/Training Program; Visit Provider Physical Medicine & Rehabilitation
DX: M51.14 Intervertebral disc disorders with radiculopathy, thoracic region (principal); M48.04 Spinal stenosis, thoracic region; M54.5 Low back pain; M41.9 Scoliosis, unspecified; Z98.1 Arthrodesis status
CPT/HCPCS: 62321; 99152; J1100; J2250; J3010

== ENCOUNTER → 2018-07-02 13:59 | Outpatient (CLI) | payer OTHER, SELFPAY ==
--- NOTE | 2018-07-02 14:04 | DI.RAD.S_ITS ---
PROCEDURE: XR CERVICAL SPINE 4V OR 5V INDICATIONS: cervical spondylosis TECHNIQUE: 5 views of the cervical spine acquired. COMPARISON: None. FINDINGS: Bones: No fracture or dislocation. There is grade 1 anterolisthesis of C3 on C4. Severe degenerative disc disease at C4-C5, C5-C6 and C6-C7. There is mild to moderate bilateral facet arthropathy scattered in cervical spine. Mild foraminal stenosis at C3-C4 and C4-C5 bilaterally. Soft tissues: No prevertebral soft tissue swelling. IMPRESSION: 1. Severe degenerative disc disease and [id number] facet arthropathy in cervical spine as described. 2. Mild foraminal stenosis at C3-C4 and C4 and C5 bilaterally. Dictated by: Christiano Carmen M.D. on 07/02/2018 at 17:32 Approved by: Christiano Carmen M.D. on 07/02/2018 at 17:35
--- NOTE | 2018-07-02 14:05 | DI.RAD.S_ITS ---
PROCEDURE: XR CHEST 2V INDICATIONS: Suspect sarcoidosis TECHNIQUE: 2 views of the chest were acquired. COMPARISON: [facility], CR, XR CHEST 2V, 01/10/2018, 12:59. FINDINGS: Surgical changes and devices: None. Lungs and pleura: Lungs are clear. No pleural effusions or pneumothorax. Mediastinum: Mediastinal contours are normal. Heart size is normal. Bones and chest wall: No suspicious bony abnormalities. Soft tissues appear unremarkable. Scoliosis. There are discectomies and lumbar spine fusion. IMPRESSION: No acute cardiopulmonary disease. Dictated by: Christiano Carmen M.D. on 07/02/2018 at 15:04 Approved by: Christiano Carmen M.D. on 07/02/2018 at 15:05
== END ==
PROVIDERS: PCP Student in an Organized Health Care Education/Training Program; Visit Provider Physical Medicine & Rehabilitation
DX: M47.812 Spondylosis without myelopathy or radiculopathy, cervical region (principal); M50.321 Other cervical disc degeneration at C4-C5 level; M48.02 Spinal stenosis, cervical region; R06.02 Shortness of breath; Z98.1 Arthrodesis status; M41.9 Scoliosis, unspecified
CPT/HCPCS: 71046; 72050

== ENCOUNTER → 2018-07-15 07:45 | Outpatient (CLI) | payer OTHER, SELFPAY ==
--- NOTE | 2018-07-15 07:47 | DI.MRI.S_ITS ---
PROCEDURE: MR CERVICAL SPINE WO CON INDICATIONS: cervical spondylosis TECHNIQUE: Noncontrast sagittal T1 spin echo and T2 fast spin echo, sagittal STIR, foraminal oblique sagittal T2 fast spin echo, and axial gradient echo or T2 fast spin echo through the cervical spine. COMPARISON: [facility], CR, XR CERVICAL SPINE 4V OR 5V, 07/02/2018, 14:07. FINDINGS: Image quality: Motion is present on multiple sequences, limiting areas of fine detail evaluation. Alignment and Curvature: There is trace anterolisthesis of C2 on C3, C3 on C4, C7 on T1, trace retrolisthesis of C4 on C5, C5 on C6, C6 on C7. Bone Marrow: Marrow demonstrates normal overall signal. Reactive marrow changes are present most prominently at C6-7. Spinal Cord: Visualized spinal cord has normal size and signal. No cerebellar tonsillar herniation. Paraspinous Soft Tissues: No paravertebral masses. Prevertebral soft tissues are normal in thickness. Discs: Severe desiccation is present throughout the cervical spine. C2-C3: Mild disc bulge with moderate spinal stenosis. There is moderate to severe right foraminal narrowing with uncovertebral hypertrophy. C3-C4: Motion is present at this level. Mild disc bulge with moderate spinal stenosis. There is compromise of the right lateral recess secondary to asymmetric bulge. Severe right and moderate to severe left foraminal narrowing with uncovertebral hypertrophy. C4-C5: Motion is present at this level. Mild disc bulge with moderate to severe spinal stenosis. Moderate to severe right and severe left foraminal foraminal narrowing with uncovertebral hypertrophy. C5-C6: Mild disc bulge with severe spinal stenosis. Moderate to severe bilateral foraminal narrowing with uncovertebral hypertrophy. C6-C7: Motion is present at this level. Mild disc bulge with moderate spinal stenosis. Severe left and moderate to severe right foraminal narrowing with uncovertebral hypertrophy. C7-T1: Prominent motion is present this level. No gross spinal stenosis or foraminal narrowing. IMPRESSION: 1. Multiple disc bulges. 2. Multilevel spinal stenosis most prominent at C5-6 secondary to disc bulge as well as retrolisthesis. 3. Prominent multilevel foraminal narrowing most severe at C3-4, C4-5 and C6-7 secondary to uncovertebral arthropathy. Dictated by: Jojo Contreras M.D. on 07/15/2018 at 12:01 Approved by: Jojo Contreras M.D. on 07/15/2018 at 12:37
== END ==
PROVIDERS: Family Provider Physical Therapist; PCP Student in an Organized Health Care Education/Training Program; Visit Provider Physical Medicine & Rehabilitation
DX: M50.11 Cervical disc disorder with radiculopathy, high cervical region (principal); M47.22 Other spondylosis with radiculopathy, cervical region; M48.02 Spinal stenosis, cervical region
CPT/HCPCS: 72141

== ENCOUNTER → 2018-07-24 11:46 | Outpatient (CLI) | payer OTHER, SELFPAY ==
[2018-07-24 12:21] LABS: Add Manual Diff / Slide Review NO; Basophils Absolute Auto 0 /uL (0-100); Basophils Percent Auto 0.3 % (0-2); Eosinophils Absolute Auto 100 /uL (0-450); Eosinophils Percent Auto 1.2 % (2-4); Hematocrit 38.6 % (36-46); Hemoglobin 12.9 g/dL (12.0-16.0); Lymphocytes Absolute Auto 1600 /uL (1100-4500); Lymphocytes Percent Auto 26.5 % (25-40); Mean Corpuscular HGB Conc 33.4 % (30-36); Mean Corpuscular Hemoglobin 31.4 PG (26-34); Mean Corpuscular Volume 93.9 fL (80-100); Monocytes Absolute Auto 500 /uL (0-900); Neutrophils Absolute Auto 3800 /uL (1500-7000); Platelet Count 234 X10^3/uL (150-400); Red Blood Cell Count 4.11 X10^6/uL (4.0-5.2); Red Cell Distribution Width 12.6 % (11.6-14.8)
[2018-07-24 12:30] LABS: Alanine Aminotransferase 31 IU/L (9-52); Albumin 4.5 g/dL (3.5-5.0); Albumin Globulin Ratio 1.6 (1.0-2.8); Alkaline Phosphatase 61 U/L (38-126); Aspartate Aminotransferase 24 IU/L (14-36); Bilirubin Total 0.4 mg/dL (0.2-1.3); Bilirubin Unconjugated 0.3 mg/dL (0.0-1.1); Gamma Glutamyl Transpeptidase 27 U/L (12-43); Globulin 2.9 g/dL (1.7-4.1); HEMOLYSIS < 15 (0-50); Lipase 120 U/L (23-300); Total Protein 7.4 g/dL (6.3-8.2)
== END ==
PROVIDERS: PCP Student in an Organized Health Care Education/Training Program; Visit Provider Student in an Organized Health Care Education/Training Program
DX: K86.9 Disease of pancreas, unspecified (principal); R10.9 Unspecified abdominal pain
CPT/HCPCS: 36415; 80076; 82977; 83690; 85025

== ENCOUNTER → 2018-08-29 17:06 | Outpatient (CLI) | payer OTHER, SELFPAY ==
--- NOTE | 2018-08-29 | DI.MRI.S_ITS ---
PROCEDURE: MR LUMBAR SPINE WO/W CON INDICATIONS: INCREASING BACK PAIN/SCOLIOSIS TECHNIQUE: Noncontrast sagittal T1 spin echo and T2 fast spin echo, sagittal STIR, axial T1 and T2 fast spin echo through the lumbar spine. In cases with scoliosis, additional coronal T2 fast spin echo may be performed. After the administration of contrast, sagittal and axial T1 spin echo with fat saturation through the lumbar spine. COMPARISON: [facility], MR, L-SPINE WITHOUT CONTRAST, 12/24/2013, 16:53. [facility], CT, ABDOMEN/PELVIS WITH CONTRAST, 08/02/2017, 22:01. [facility], CT, ABDOMEN/PELVIS WITH CONTRAST, 06/16/2010, 10:03. FINDINGS: Image quality: Excellent. Alignment and curvature: Mild dextroconvex scoliotic curvature is seen. Minimal retrolisthesis is seen at L5-S1. Marrow: Marrow is of normal overall signal. No acute vertebral body compression fractures. No suspicious marrow enhancement. Spinal cord: Conus medullaris terminates at the L1 level. Visualized spinal cord demonstrates normal signal, without suspicious enhancement. Paraspinous soft tissues: No paravertebral masses or abnormal enhancement. Extensive postoperative changes are seen, with bilateral pedicle screws at the L2, L3, L4, L5, and S1 levels. There are vertical fixation rods. Disc spacers are seen throughout the fused region. There is associated susceptibility artifact. T12-L1: Moderate loss of disc height is seen. Loss of disc signal is seen. Moderate disc bulge is seen, which is eccentric to the right. There is moderate right-sided and no left-sided neural foraminal narrowing seen. Mild central canal narrowing is seen. L1-L2: Moderate to severe loss of disc height is seen. There is loss of disc signal. There is moderate right-sided and moderate to severe left-sided neural foraminal narrowing seen. Moderate to severe central canal narrowing is seen at this level. L2-L3: Postoperative changes are seen at this level. No abnormal enhancement. No significant neural foraminal or central canal narrowing can be seen. L3-L4: Postoperative changes can be seen at this level. No abnormal enhancement is detected. The left neural foramen is obscured, yet there is likely mild neural foraminal narrowing. No significant right-sided neural foraminal narrowing is seen at no significant central canal narrowing is seen. L4-L5: There are postoperative changes at this level. No significant abnormal postoperative enhancement can be seen. Minimal bilateral neural foraminal narrowing is seen. No significant central canal narrowing is seen. L5-S1: Minimal retrolisthesis is seen at this level. Moderate disc bulge is seen, with a moderate central protrusion, as on series 6 image 30. Posteriorly directed endplate osteophytes are seen. There is at least moderate left-sided neural foraminal narrowing, as on series 4 image 14. Mild to moderate right-sided neural foraminal narrowing is seen. [id number] central canal narrowing is seen. IMPRESSION: Extensive postoperative changes are seen. No abnormal enhancement or other significant postoperative complication can be seen. Multiple levels of degenerative change are seen, which are overall most prominent at the L1-L2 level, where there is moderate to severe left-sided neural foraminal narrowing and moderate to severe central canal narrowing present. Dextroconvex scoliosis. Dictated by: Chuckie Vance M.D. on 08/30/2018 at 8:55 Approved by: Chuckie Vance M.D. on 08/30/2018 at 9:04
== END ==
PROVIDERS: Family Provider Physical Medicine & Rehabilitation; PCP Student in an Organized Health Care Education/Training Program; Visit Provider Psychiatry & Neurology Addiction Medicine
DX: M54.9 Dorsalgia, unspecified (principal); M41.9 Scoliosis, unspecified; M47.816 Spondylosis without myelopathy or radiculopathy, lumbar region; M47.817 Spondylosis without myelopathy or radiculopathy, lumbosacral region; M48.061 Spinal stenosis, lumbar region without neurogenic claudication; M48.07 Spinal stenosis, lumbosacral region; Z98.1 Arthrodesis status
CPT/HCPCS: 72158; A9579

== ENCOUNTER → 2018-11-12 14:46 | Outpatient (CLI) | payer OTHER, SELFPAY ==
[2018-11-12 16:32] LABS: Alanine Aminotransferase 14 IU/L (9-52); Albumin 4.2 g/dL (3.5-5.0); Albumin Globulin Ratio 1.4 (1.0-2.8); Alkaline Phosphatase 70 U/L (38-126); Aspartate Aminotransferase 22 IU/L (14-36); Bilirubin Total 0.3 mg/dL (0.2-1.3); Blood Urea Nitrogen 21 mg/dL (7-17); Calcium 9.6 mg/dL (8.4-10.2); Carbon Dioxide 27 mmol/L (22-32); Chloride 104 mmol/L (98-107); Estimated Glomerular Filt Rate > 60.0 mL/min (>60); Globulin 2.9 g/dL (1.7-4.1); Glucose 87 mg/dL (70-100); HEMOLYSIS < 15 (0-50); Potassium 4.4 mmol/L (3.4-5.1); Sodium 140 mmol/L (137-145); Total Protein 7.1 g/dL (6.3-8.2)
== END ==
PROVIDERS: PCP Student in an Organized Health Care Education/Training Program; Visit Provider Student in an Organized Health Care Education/Training Program
DX: Z79.899 Other long term (current) drug therapy (principal)
CPT/HCPCS: 36415; 80053

== ENCOUNTER → 2019-01-27 09:54 | Outpatient (CLI) | payer OTHER, SELFPAY ==
[2019-01-27 17:52] LABS: Add Manual Diff / Slide Review NO; Basophils Absolute Auto 0 /uL (0-100); Basophils Percent Auto 0.5 % (0-2); Eosinophils Absolute Auto 100 /uL (0-450); Eosinophils Percent Auto 1.6 % (2-4); Hematocrit 39.2 % (36-46); Hemoglobin 13.7 g/dL (12.0-16.0); Lymphocytes Absolute Auto 2000 /uL (1100-4500); Lymphocytes Percent Auto 28.2 % (25-40); Mean Corpuscular HGB Conc 34.8 % (30-36); Mean Corpuscular Hemoglobin 31.3 PG (26-34); Monocytes Absolute Auto 500 /uL (0-900); Monocytes Percent Auto 7.8 % (3-14); Neutrophils Absolute Auto 4300 /uL (1500-7000); Neutrophils Percent Auto 61.9 % (50-75); Platelet Count 259 X10^3/uL (150-400); Red Blood Cell Count 4.36 X10^6/uL (4.0-5.2); Red Cell Distribution Width 12.8 % (11.6-14.8); White Blood Cell Count 6.9 X10^3/uL (4.5-11.0)
[2019-01-27 18:05] LABS: Alanine Aminotransferase 25 IU/L (9-52); Albumin 4.8 g/dL (3.5-5.0); Albumin Globulin Ratio 1.5 (1.0-2.8); Alkaline Phosphatase 82 U/L (38-126); Aspartate Aminotransferase 29 IU/L (14-36); Bilirubin Total 0.4 mg/dL (0.2-1.3); Blood Urea Nitrogen 14 mg/dL (7-17); C-Reactive Protein Quant 0.5 mg/dL (<1.0); Calcium 10.1 mg/dL (8.4-10.2); Carbon Dioxide 27 mmol/L (22-32); Chloride 100 mmol/L (98-107); Estimated Glomerular Filt Rate > 60.0 mL/min (>60); Gamma Glutamyl Transpeptidase 26 U/L (12-43); Globulin 3.1 g/dL (1.7-4.1); Glucose 102 mg/dL (70-100); HEMOLYSIS 16 (0-50); Lipase 167 U/L (23-300); Potassium 4.3 mmol/L (3.4-5.1); Sodium 139 mmol/L (137-145); Total Protein 7.9 g/dL (6.3-8.2)
[2019-01-27 18:16] LABS: Erythrocyte Sedimentation Rate 11 MM/HR (0-20)
== END ==
PROVIDERS: PCP Student in an Organized Health Care Education/Training Program; Visit Provider Student in an Organized Health Care Education/Training Program
DX: K52.9 Noninfective gastroenteritis and colitis, unspecified (principal)
CPT/HCPCS: 36415; 80053; 82977; 83690; 85025; 85651; 86140

== ENCOUNTER → 2019-01-28 08:27 | Outpatient (CLI) | payer OTHER, SELFPAY ==
[2019-02-03 02:00] LABS: Calprotectin, Stool < 15.6 mcg/g
== END ==
PROVIDERS: PCP Student in an Organized Health Care Education/Training Program; Visit Provider Student in an Organized Health Care Education/Training Program
DX: K52.9 Noninfective gastroenteritis and colitis, unspecified (principal)
CPT/HCPCS: 83993; 84376

== ENCOUNTER → 2019-04-02 11:00 | Outpatient (CLI) | payer OTHER, SELFPAY ==
--- NOTE | 2019-04-02 | DI.MG.S_ITS ---
BILATERAL DIGITAL SCREENING MAMMOGRAM 3D/2D WITH CAD: 04/02/2019 CLINICAL: Routine screening. Family history of breast cancer. Comparison is made to exams dated: 08/27/2017 mammogram, 01/14/2015 mammogram, and 02/11/2013 mammogram - [facility]. The tissue of both breasts is heterogeneously dense. This may lower the sensitivity of mammography. Current study was also evaluated with a Computer Aided Detection (CAD) system. No significant masses, calcifications, or other findings are seen in either breast. There has been no significant interval change. IMPRESSION: NEGATIVE There is no mammographic evidence of malignancy. A 1 year screening mammogram is recommended. This exam was interpreted at Station ID: [id number]. NOTE: For mammograms, a report in lay terms will be sent to the patient. Approximately 15% of breast malignancies will not be visualized mammographically. In the management of a palpable breast mass, a negative mammogram must not discourage biopsy of a clinically suspicious lesion. Electronically Signed By: Stuart crane/delfina:04/02/2019 12:13:15 letter sent: Normal Exam ACR BI-RADS Category 1: Negative 3341F
== END ==
PROVIDERS: PCP Student in an Organized Health Care Education/Training Program; Visit Provider Student in an Organized Health Care Education/Training Program
DX: Z12.31 Encounter for screening mammogram for malignant neoplasm of breast (principal); Z80.3 Family history of malignant neoplasm of breast
CPT/HCPCS: 77063; 77067

== ENCOUNTER → 2019-07-04 19:09 | Outpatient (CLI) | payer OTHER, SELFPAY ==
--- NOTE | 2019-07-04 19:12 | DI.MRI.S_ITS ---
PROCEDURE: MR SHOULDER RT WO CON INDICATIONS: PAIN RIGHT SHOULDER TECHNIQUE: Noncontrast oblique coronal T2 fast spin echo with fat saturation, oblique sagittal T1 spin echo and T2 fast spin echo with fat saturation, axial T1 spin echo and T2 fast spin echo with fat saturation through the shoulder. COMPARISON: None. FINDINGS: Image quality: Excellent. Rotator cuff: There is full-thickness rupture involving distal supraspinatus and infraspinatus at their insertions on the humeral head with up to 2.8 cm medial retraction of torn tendon fibers to the level of acromioclavicular joint. Distal subscapularis tendinosis and low intrasubstance partial-thickness tear is seen. Sagittal images demonstrate moderate grade supraspinatus muscle atrophy. Bones and bursae: No bone marrow contusions or fractures. Moderate acromioclavicular joint osteophytic changes are seen. Mild to moderate glenohumeral joint osteoarthritic changes also noted. There is moderate amount of joint fluid in subacromial subdeltoid bursal fluid. Capsule and soft tissues: In the absence of intra-articular contrast, there is suggestion of superior anterior labral tear at 12 to 2:00 position. There is also suggestion of anterior inferior labral tear at 5 to 6:00 position. glenohumeral ligaments appear intact. Tendinosis and low to moderate grade partial-thickness tear involving proximal intra-articular portion of long head biceps is seen. The rotator interval appears normal, without fibrosis. The coracohumeral ligament is normal in thickness. IMPRESSION: 1. Full-thickness rupture of distal supraspinatus and infraspinatus tendon insertions on the humeral head with a 2.8 cm medial retraction of torn tendon fibers to the level of acromioclavicular joint. Distal subscapularis tendinosis and low-grade intrasubstance partial-thickness tear. Moderate supraspinatus muscle atrophy. 2. Mild/moderate acromioclavicular joint and glenohumeral joint osteoarthritis. Small to moderate amount of joint fluid in subacromial subdeltoid bursal fluid. 3. Suggestion of superior anterior labral tear and 12 to 2:00 position and an anterior inferior labral tear 5 to 6:00 position. 4. Tendinosis and low to moderate grade partial-thickness tear involving proximal intra-articular portion of long head biceps. Dictated by: Jamel Younger M.D. on 07/07/2019 at 8:24 Approved by: Jamel Younger M.D. on 07/07/2019 at 8:33
== END ==
PROVIDERS: PCP Student in an Organized Health Care Education/Training Program; Referring Provider Orthopaedic Surgery; Visit Provider Orthopaedic Surgery
DX: M25.511 Pain in right shoulder (principal); M75.121 Complete rotator cuff tear or rupture of right shoulder, not specified as traumatic; M19.011 Primary osteoarthritis, right shoulder; S46.111A Strain of muscle, fascia and tendon of long head of biceps, right arm, initial encounter
CPT/HCPCS: 73221

== ENCOUNTER → 2019-11-05 13:42 | Outpatient (CLI) | payer OTHER, SELFPAY ==
--- NOTE | 2019-11-05 13:44 | DI.MRI.S_ITS ---
PROCEDURE: MR THORACIC SPINE WO CON INDICATIONS: Upper back pain TECHNIQUE: Noncontrast sagittal T1 spine echo and T2 fast spin echo, sagittal STIR, axial T1 and T2 fast spin echo through the thoracic spine. COMPARISON: None. FINDINGS: Image quality: Excellent. Alignment and Curvature: There is normal bony alignment. Bone Marrow: Marrow is of normal overall signal. No acute vertebral body compression fractures. Reactive endplate changes are present at T5-6, T6-7, T8-9, and T9-10. Spinal Cord: Mild flattening of the anterior left aspect of the cord is present at T5-6 and T6-7. Anterior flattening of the cord is also present at T7-8. No cord signal abnormality. Paraspinous Soft Tissues: No paravertebral masses. Miscellaneous: There is diffuse intervertebral disc space height loss and endplate sclerosis. Moderate neuroforaminal stenosis is present on the right at T11-12. No other foraminal narrowing. IMPRESSION: 1. Moderate degenerative disc disease within the mid thoracic spine as above. There are multi-level posterior broad based disc bulges with resultant effacement of the anterior aspect of the cord at T5-6, T6-7, T8-9, and T9-10. No cord signal abnormality. 2. Moderate neuroforaminal narrowing on the right at T11-12. 3. No compression deformities or spondylolisthesis. Dictated by: Bhavana Mosqueda M.D. on 11/05/2019 at 16:14 Approved by: Bhavana Mosqueda M.D. on 11/05/2019 at 16:19
--- NOTE | 2019-11-05 13:44 | DI.MRI.S_ITS ---
PROCEDURE: MR LUMBAR SPINE WO/W CON INDICATIONS: Radiculopathy, lumbar region TECHNIQUE: Noncontrast sagittal T1 spin echo and T2 fast spin echo, sagittal STIR, axial T1 and T2 fast spin echo through the lumbar spine. In cases with scoliosis, additional coronal T2 fast spin echo may be performed. After the administration of contrast, sagittal and axial T1 spin echo with fat saturation through the lumbar spine. COMPARISON: [facility], , MR LUMBAR SPINE WO/W CON, 08/29/2018, 17:18. FINDINGS: Image quality: This study is markedly limited by the extensive metallic artifact from the posterior fixation hardware. Alignment and curvature: Patient is status post posterior fusion from L2-S1. Marrow: Marrow is of normal overall signal. No acute vertebral body compression fractures. No suspicious marrow enhancement. Spinal cord: Conus medullaris terminates at the L1 level. Visualized spinal cord demonstrates normal signal, without suspicious enhancement. Paraspinous soft tissues: No paravertebral masses or abnormal enhancement. L1-L2: Disc desiccation and height loss. Reactive endplate changes. No canal stenosis. Mild bilateral neuroforaminal narrowing. L2-L3: Moderate disc desiccation and height loss. Broad-based disc bulge. Mild left neuroforaminal narrowing. No right neuroforaminal stenosis. L3-L4: Moderate disc desiccation and height loss. No canal stenosis. No neural foraminal narrowing. L4-L5: Mild disc desiccation and height loss. Broad-based disc bulge. No canal stenosis. No neural foraminal narrowing. L5-S1: Broad-based disc bulge. No canal stenosis. Moderate left neuroforaminal narrowing. No right neuroforaminal stenosis. IMPRESSION: 1. Markedly limited study given extensive metallic artifact from the posterior fixation hardware. 2. No significant canal stenosis of the lumbar spine. 3. Moderate left L5-S1 foraminal stenosis. No other foraminal narrowing appreciated throughout the lumbar spine. Dictated by: Bhavana Mosqueda M.D. on 11/05/2019 at 15:38 Approved by: Bhavana Mosqueda M.D. on 11/05/2019 at 16:14
== END ==
PROVIDERS: PCP Student in an Organized Health Care Education/Training Program; Referring Provider Anesthesiology Pain Medicine; Visit Provider Anesthesiology Pain Medicine
DX: M54.16 Radiculopathy, lumbar region (principal); M48.07 Spinal stenosis, lumbosacral region; Z98.1 Arthrodesis status
CPT/HCPCS: 72146; 72158; A9579

== ENCOUNTER → 2020-04-10 10:28 | Outpatient (CLI) | payer OTHER, SELFPAY ==
--- NOTE | 2020-04-10 | DI.MG.S_ITS ---
BILATERAL DIGITAL SCREENING MAMMOGRAM 3D/2D WITH CAD: 04/10/2020 CLINICAL: Routine screening. Family history of breast cancer. Comparison is made to exams dated: 04/02/2019 mammogram, 08/27/2017 mammogram, and 01/14/2015 mammogram - [facility]. The tissue of both breasts is heterogeneously dense. This may lower the sensitivity of mammography. Current study was also evaluated with a Computer Aided Detection (CAD) system. There is a new 1 cm irregular asymmetry with a spiculated margin in the left breast middle depth lateral region seen on the craniocaudal view only. No other significant masses, calcifications, or other findings are seen in either breast. IMPRESSION: INCOMPLETE: NEEDS ADDITIONAL IMAGING EVALUATION The new 1 cm irregular asymmetry in the left breast is indeterminate. Additional views with possible ultrasound are recommended. This exam was interpreted at Station ID: [id number]. NOTE: For mammograms, a report in lay terms will be sent to the patient. Approximately 15% of breast malignancies will not be visualized mammographically. In the management of a palpable breast mass, a negative mammogram must not discourage biopsy of a clinically suspicious lesion. Electronically Signed By: Quirino Manning acr/:04/11/2020 19:07:12 letter sent: Additional Imaging Needed ACR BI-RADS Category 0: Incomplete 3340F
== END ==
PROVIDERS: PCP Student in an Organized Health Care Education/Training Program; Referring Provider Student in an Organized Health Care Education/Training Program; Visit Provider Student in an Organized Health Care Education/Training Program
DX: Z12.31 Encounter for screening mammogram for malignant neoplasm of breast (principal); Z80.3 Family history of malignant neoplasm of breast
CPT/HCPCS: 77063; 77067

== ENCOUNTER → 2020-04-26 08:35 | Outpatient (CLI) | payer OTHER, SELFPAY ==
[2020-04-26 11:02] LABS: Add Manual Diff / Slide Review NO; Basophils Absolute Auto 0 /uL (0-100); Basophils Percent Auto 0.8 % (0-2); Eosinophils Absolute Auto 200 /uL (0-450); Eosinophils Percent Auto 2.7 % (2-4); Hematocrit 39.6 % (36-46); Hemoglobin 13.5 g/dL (12.0-16.0); Lymphocytes Absolute Auto 1500 /uL (1100-4500); Lymphocytes Percent Auto 26.7 % (25-40); Mean Corpuscular HGB Conc 34.1 % (30-36); Mean Corpuscular Hemoglobin 31.6 PG (26-34); Mean Corpuscular Volume 92.7 fL (80-100); Monocytes Absolute Auto 500 /uL (0-900); Monocytes Percent Auto 8.9 % (3-14); Neutrophils Absolute Auto 3500 /uL (1500-7000); Neutrophils Percent Auto 60.9 % (50-75); Platelet Count 246 X10^3/uL (150-400); Red Blood Cell Count 4.27 X10^6/uL (4.0-5.2); Red Cell Distribution Width 12.4 % (11.6-14.8); White Blood Cell Count 5.7 X10^3/uL (4.5-11.0)
[2020-04-26 11:28] LABS: Alanine Aminotransferase 20 IU/L (<35); Albumin 4.4 g/dL (3.5-5.0); Albumin Globulin Ratio 1.4 (1.0-2.8); Alkaline Phosphatase 72 U/L (38-126); Aspartate Aminotransferase 27 IU/L (14-36); BUN Creatinine Ratio 26.2 (6-22); Bilirubin Total 0.4 mg/dL (0.2-1.3); Blood Urea Nitrogen 16 mg/dL (7-17); Calcium 9.7 mg/dL (8.4-10.2); Carbon Dioxide 29 mmol/L (22-32); Chloride 104 mmol/L (98-107); Cholesterol 195 mg/dL (140-199); Estimated Glomerular Filt Rate > 60.0 mL/min (>60); Globulin 3.2 g/dL (1.7-4.1); Glucose 96 mg/dL (70-100); HDL Cholesterol 49 mg/dL (40-60); HEMOLYSIS < 15 (0-50); LDL Cholesterol Calculated 119 mg/dL (<100); Potassium 4.9 mmol/L (3.4-5.1); Sodium 138 mmol/L (137-145); Total Protein 7.6 g/dL (6.3-8.2); Triglycerides 134 mg/dL (35-150)
[2020-04-26 11:48] LABS: Thyroid Stimulating Hormone 0.757 uIU/mL (0.47-4.68)
== END ==
PROVIDERS: PCP Naturopath; Referring Provider Naturopath; Visit Provider Naturopath
DX: Z00.00 Encounter for general adult medical examination without abnormal findings (principal); R53.83 Other fatigue
CPT/HCPCS: 36415; 80053; 80061; 84443; 85025

== ENCOUNTER → 2021-03-21 13:29 | Outpatient (CLI) | payer OTHER, SELFPAY ==
--- NOTE | 2021-03-21 13:30 | DI.RAD.S_ITS ---
PROCEDURE: XR LUMBAR SPINE MIN 4V INDICATIONS: BACK PAIN TECHNIQUE: 4 views of the lumbar spine were acquired, including bilateral oblique views. COMPARISON: [facility], , XR LUMBAR SPINE 2-3V, 01/08/2018, 16:32. FINDINGS: Bones: 5 nonrib-bearing vertebrae are present. No traumatic subluxation. Redemonstrated posterior element fixation with discectomy at L2 -S1 without evidence of hardware compromise. Persistent dextrocurvature of the lumbar spine. The vertebral body heights are maintained. No suspicious bony lesions. The sacroiliac joints are patent. No widening of the pubic symphysis. Soft tissues: Overlying bowel gas pattern is normal. No suspicious soft tissue calcifications. Oblique images: No pars defects. IMPRESSION: No significant interval change. Dictated by: Reyes Lund M.D. on 03/21/2021 at 14:28 Approved by: Reyes Lund M.D. on 03/21/2021 at 14:33
== END ==
PROVIDERS: PCP Student in an Organized Health Care Education/Training Program; Referring Provider Physical Medicine & Rehabilitation; Visit Provider Physical Medicine & Rehabilitation
DX: M48.061 Spinal stenosis, lumbar region without neurogenic claudication (principal); M41.9 Scoliosis, unspecified
CPT/HCPCS: 72110

== ENCOUNTER → 2021-04-18 07:33 | Outpatient (CLI) | payer OTHER, SELFPAY ==
[2021-04-18 10:21] LABS: Add Manual Diff / Slide Review NO; Basophils Absolute Auto 0 /uL (0-100); Basophils Percent Auto 0.7 % (0-2); Eosinophils Absolute Auto 100 /uL (0-450); Eosinophils Percent Auto 2.9 % (2-4); Hematocrit 39.4 % (36-46); Hemoglobin 13.8 g/dL (12.0-16.0); Lymphocytes Absolute Auto 1600 /uL (1100-4500); Lymphocytes Percent Auto 33.4 % (25-40); Mean Corpuscular HGB Conc 34.9 % (30-36); Mean Corpuscular Hemoglobin 31.6 PG (26-34); Mean Corpuscular Volume 90.5 fL (80-100); Monocytes Absolute Auto 600 /uL (0-900); Monocytes Percent Auto 12.8 % (3-14); Neutrophils Absolute Auto 2400 /uL (1500-7000); Neutrophils Percent Auto 50.2 % (50-75); Platelet Count 198 X10^3/uL (150-400); Red Blood Cell Count 4.36 X10^6/uL (4.0-5.2); White Blood Cell Count 4.9 X10^3/uL (4.5-11.0)
[2021-04-18 10:36] LABS: Alanine Aminotransferase 24 IU/L (<35); Albumin 4.4 g/dL (3.5-5.0); Albumin Globulin Ratio 1.4 (1.0-2.8); Alkaline Phosphatase 60 U/L (38-126); Aspartate Aminotransferase 30 IU/L (14-36); BUN Creatinine Ratio 29.6 (6-22); Bilirubin Total 0.3 mg/dL (0.2-1.3); Blood Urea Nitrogen 16 mg/dL (7-17); Calcium 9.8 mg/dL (8.4-10.2); Carbon Dioxide 29 mmol/L (22-32); Chloride 104 mmol/L (98-107); Cholesterol 176 mg/dL (140-199); Estimated Glomerular Filt Rate > 60.0 mL/min (>60); Globulin 3.2 g/dL (1.7-4.1); Glucose 103 mg/dL (80-110); HDL Cholesterol 41 mg/dL (40-60); HEMOLYSIS < 15 (0-50); LDL Cholesterol Calculated 109 mg/dL (<100); Potassium 4.4 mmol/L (3.4-5.1); Sodium 139 mmol/L (137-145); Total Protein 7.6 g/dL (6.3-8.2); Triglycerides 129 mg/dL (35-150)
== END ==
PROVIDERS: PCP Student in an Organized Health Care Education/Training Program; Referring Provider Naturopath; Visit Provider Naturopath
DX: Z00.00 Encounter for general adult medical examination without abnormal findings (principal)
CPT/HCPCS: 36415; 80053; 80061; 85025

== ENCOUNTER → 2021-05-04 12:32 | Outpatient (CLI) | payer OTHER, SELFPAY ==
[2021-05-04 14:14] LABS: Thyroid Stimulating Hormone 0.149 uIU/mL (0.47-4.68)
[2021-05-05 10:19] LABS: Free T3, Triiodothyronine Free 3.29 pg/mL (2.77-5.27)
== END ==
PROVIDERS: PCP Student in an Organized Health Care Education/Training Program; Referring Provider Naturopath; Visit Provider Naturopath
DX: R53.83 Other fatigue (principal)
CPT/HCPCS: 36415; 84439; 84443; 84481

== ENCOUNTER → 2021-05-09 18:05 | Outpatient (CLI) | payer OTHER, SELFPAY | PROVIDERS: PCP Student in an Organized Health Care Education/Training Program; Visit Provider Physical Medicine & Rehabilitation | DX: Z20.822 Contact with and (suspected) exposure to COVID-19 (principal) | CPT/HCPCS: 87635 ==

== ENCOUNTER 2021-05-10 08:28 | Outpatient (CLI) | payer OTHER, SELFPAY ==
[2021-05-10] VITALS (9 sets, daily range): BP systolic 101–147; BP diastolic 58–70; PULSE 57–69; RESP 10–20; TEMP 36.2; O2SAT 92–100
--- NOTE | 2021-05-10 08:29 | DI.RAD.S_ITS ---
PROCEDURE: PAIN C/T INTERLAMINAR INJECT INDICATIONS: SPINAL STENOSIS COMPARISON: [facility], , PAIN C/T INTERLAMINAR INJECT, 06/19/2018, 10:41. FINDINGS: Fluoroscopic spot filming was performed to verify placement of a spinal needle at the T9-T10 level(s), as labeled on the films. Appropriate location(s) of the needle tip(s) was confirmed by injection of iodinated contrast. IMPRESSION: Intraprocedural examination within normal limits. Dictated by: Chuckie Vance M.D. on 05/10/2021 at 10:09 Approved by: Chuckie Vance M.D. on 05/10/2021 at 10:11
[2021-05-10] MEDS: MIDAZOLAM 5 MG/5 ML VIAL IV (09:45)
[2021-05-10] MEDS: fentaNYL 100 MCG/2 ML INJ 50 MCG IV (09:45)
[2021-05-10] MEDS: BUPIVACAINE 0.25% (PF) VIAL 2 ML INJ (09:51)
[2021-05-10] MEDS: DEXAMETHASONE 10 MG/ML VIAL 30 MG INJ (09:51)
[2021-05-10] MEDS: IOPAMIDOL 15 ML VIAL 3 ML INJ (09:51)
--- NOTE | 2021-05-10 10:10 | PM.PROC.IR.1 ---
Date/Time/Diagnoses Date of procedure: 05/10/21 Time of procedure: 10:10 Pre-procedure diagnosis: Thoracic stenosis with HNP Post-procedure diagnosis: same Procedure Notes Procedure: Fluoroscopic guided, contrast controlled T9/10 translaminar epidural steroid injection with conscious sedation. Indications: Xiao is referred by Dr. Toure for treatment of thoracic DDD/DJD with radiculopathy Physician: Issac Gaspar Total Fluoroscopy time (seconds): 25 Total sedation minutes: 20 Complications: none Procedure in detail & Post-procedure care: DESCRIPTION OF PROCEDURE Fluoroscopic guided, contrast controlled T9/10 translaminar epidural steroid injection with conscious sedation. Following review of allergy review potential side effects and complications, including, but not necessarily limited to, infection, allergic reaction, local tissue breakdown, temporary as well as permanent nerve injury, stroke, paralysis and possible , the patient indicated that they understood and agreed to proceed. An informed consent document was signed by the patient, witnessed by the nurse, and placed in the patient's chart. Additionally other treatment options including modalities, medications and physical therapy were reviewed with the patient. After review of previous anaesthesic history and IV conscious sedation the patient was deemed safe to proceed with today's procedure with IV conscious sedation as ASA class II designation. Safety time-out was performed to confirm patient ID, procedure to be performed and site of procedure. IV sedation was accomplished with a combination of 3mg of Versed and 50mcg of Fentanyl administered by the RN after DO order, titrated to patient comfort during the course of the procedure while the patient remained responsive to all verbal commands In the prone position, following sterile prep and drape of the thoracic region the T9/10 translaminar space was identified fluoroscopically. The skin was anesthetized via 25 gauge 1.5inch needle with 1% lidocaine solution. At this point a 22gauge epidural needle was atraumatically introduced and advanced under fluoroscopic guidance into the region of the T9/10 translaminar space depth was confirmed on lateral view. Radiographic data, including multiple fluoroscopic views of the thoracic spine, reveals spinal needle at the T9/10 translaminar space. Lateral views then showed the placement of the needle in the epidural space. Subsequent view show contrast material flowing superiorly and inferiorly in the epidural space. No vascular or intrathecal uptake is observed. At this point using loss of resistance technique with saline and the epidural space was entered. This was confirmed followed negative aspiration and injection of approximately 1.5cc of Isovue 200 showed excellent epidural flow without vascular or intrathecal uptake. At this point, 1cc of 1% lidocaine solution was admitted as a test dose and the patient was observed for an appropriate period of time without signs or symptoms of complications, including abdominal pain, shortness of breath, bilateral upper and lower extremity weakness, nausea and vomiting, prior to steroid injection. Subsequently, 3cc or 30mg of dexamethasone was then injected without incident. The patient tolerated the procedure well without signs of complications and subsequently was transferred to the recovery room for further monitoring. The patient was then transferred to the recovery area with their observed for an appropriate time after the injection. Patient reported a VAS score of 7 prior to the procedure and post-procedure VAS of 2.
== END 2021-05-10 10:24 | disposition home or self-care (01) ==
PROVIDERS: PCP Student in an Organized Health Care Education/Training Program; Referring Provider Physical Medicine & Rehabilitation; Visit Provider Physical Medicine & Rehabilitation
DX: M48.04 Spinal stenosis, thoracic region (principal); M51.14 Intervertebral disc disorders with radiculopathy, thoracic region
CPT/HCPCS: 62321; 99152; J0702; J1100; J2250; J3010

== ENCOUNTER → 2021-06-06 16:03 | Outpatient (CLI) | payer OTHER, SELFPAY ==
[2021-06-06 17:42] LABS: Free T4, Direct Thyroxine 1.01 ng/dL (0.78-2.19)
[2021-06-07 20:38] LABS: Anti Thyroglobulin Antibody <1.0 IU/mL (0.0-0.9); Thyroid Peroxidase Antibodies <8 IU/mL (0-34)
[2021-06-08 14:36] LABS: Thyroid Stimulating Immunoglob < 0.10 IU/L (0.00-0.55)
== END ==
PROVIDERS: PCP Student in an Organized Health Care Education/Training Program; Referring Provider Naturopath; Visit Provider Family Medicine
DX: R94.6 Abnormal results of thyroid function studies (principal)
CPT/HCPCS: 36415; 84439; 84443; 84445; 84481; 86376; 86800

== ENCOUNTER → 2021-07-19 14:04 | Outpatient (CLI) | payer OTHER, SELFPAY ==
[2021-07-19 15:24] LABS: COVID19 -Nasal RAPID Negative (Negative)
== END ==
PROVIDERS: PCP Student in an Organized Health Care Education/Training Program; Visit Provider Physical Medicine & Rehabilitation
DX: Z20.822 Contact with and (suspected) exposure to COVID-19 (principal)
CPT/HCPCS: 87635; C9803

== ENCOUNTER 2021-07-21 08:41 | Outpatient (CLI) | payer OTHER, SELFPAY ==
[2021-07-21] VITALS (8 sets, daily range): BP systolic 112–144; BP diastolic 60–76; PULSE 58–71; RESP 14–20; TEMP 36.3; O2SAT 96–100
--- NOTE | 2021-07-21 09:05 | DI.RAD.S_ITS ---
PROCEDURE: PAIN L INTERLAMINAR/CAUDAL INJ INDICATIONS: Status Post Spinal Fusion COMPARISON: [facility], XA, PAIN C/T INTERLAMINAR INJECT, 05/10/2021, 10:50. FINDINGS: A caudally placed catheter is seen within the sacral canal. The position of the tip of the catheter was confirmed with injection of a small amount of iodinated contrast. IMPRESSION: Intraprocedural examination within normal limits. Dictated by: Chuckie Vance M.D. on 07/21/2021 at 8:55 Approved by: Chuckie Vance M.D. on 07/21/2021 at 8:57
[2021-07-21] MEDS: BETAMETHASONE 30 MG/5 ML MDV 12 MG INJ (09:26)
[2021-07-21] MEDS: BUPIVACAINE 0.25% (PF) VIAL 2 ML INJ (09:26)
[2021-07-21] MEDS: DEXAMETHASONE 10 MG/ML VIAL 20 MG INJ (09:27)
[2021-07-21] MEDS: IOPAMIDOL 15 ML VIAL 3 ML INJ (09:27)
[2021-07-21] MEDS: fentaNYL 100 MCG/2 ML INJ (09:27)
[2021-07-21] MEDS: MIDAZOLAM 5 MG/5 ML VIAL IV (09:27)
--- NOTE | 2021-07-21 09:37 | P.PCN_ITS ---
Date/Time/Diagnoses Date of procedure: 07/21/21 Time of procedure: 09:37 Pre-procedure diagnosis: 1. MULTILEVEL SPINAL STENOSIS 2. POST FUSION SYNDROME Post-procedure diagnosis: same Procedure Notes Procedure: 1. FLUOROSCOPICALLY GUIDED CONTRAST CONTROLLED CAUDAL EPIDURAL STEROID INJECTION, Indications: Xiao is referred by Dr. Toure for treatment of Multilevel Stenosis Physician: Issac Gaspar Total Fluoroscopy time (seconds): 13 Total sedation minutes: 12 Complications: none Procedure in detail & Post-procedure care: FINDINGS Multilevel Stenosis S/p Lami/Fusion Syndrome DESCRIPTION OF PROCEDURE Fluoroscopically guided, contrast controlled caudal epidural steroid injection with Conscious Sedation Following review of allergy and review of potential side effects and complications, including but not necessarily limited to infection, allergic reaction, local tissue breakdown, temporary or permanent nerve injury, stroke, paralysis, and possible , the patient indicated that they understood and agreed to proceed. An informed consent document was signed by the patient, witnessed by a nurse, and placed in the patient's chart. Additionally, other treatment options including medications, modalities, and physical therapy were reviewed with the patient. After review of previous anaesthesic history and IV conscious sedation the patient was deemed safe to proceed with today?s procedure with IV conscious sedation as ASA class II designation. Safety time-out was performed to confirm patient ID, procedure to be performed and site of procedure. IV sedation was accomplished with a combination of 2mg of Versed and 50mcg of Fentanyl administered by the RN after DO order, titrated to patient comfort during the course of the procedure while the patient remained responsive to all verbal commands In the prone position, following sterile prep and drape of the lumbar region, the sacral hiatus was identified fluoroscopically. The skin was anesthetized via a 25-gauge, 1.5-inch needle with approximately 2cc of 1% lidocaine solution. At this point, a 25-gauge, 3inch needle was atraumatically introduced and advanced under fluoroscopic guidance to the corresponding sacral hiatus and entering the sacral canal. Following negative aspiration, injection of approximately 0.3cc of Isovue 300 confirmed interarticular placement without vascular uptake. Radiological data, including multiple fluoroscopic views of the lumbosacral spine, reveal a spinal needle in the sacral canal through the sacral hiatus. Subsequent views show flow of contrast material superiorly and inferiorly in the sacral canal without vascular or intrathecal uptake. At this point, a total of 6cc including 2cc or 12mg of betamethasone, 2cc or 20 dexamethasone and 2cc of 0.25% marcaine solution was injected without complication. The patient tolerated the procedure well without signs or symptoms of complications prior to transfer to the recovery area continued monitoring w ithout incident. The patient was then transferred to the recovery area where they were observed for an appropriate period of time after the injection. The patient reported a VAS score of 10 prior to the procedure and a post-procedure VAS of 2. POST OP INSTRUCTIONS The patient was provided a Pain Log to continue to record their response to the target-specific procedure prior to their follow-up visit with the referring physician. Additionally, specific post-injection care instructions and a contact number to our office were provided if concerns arise regarding possible complications associated with the procedure are suspected.
== END 2021-07-21 09:55 | disposition home or self-care (01) ==
LOC: RAD 08:43
PROVIDERS: PCP Student in an Organized Health Care Education/Training Program; Referring Provider Physical Medicine & Rehabilitation; Visit Provider Physical Medicine & Rehabilitation
DX: M48.07 Spinal stenosis, lumbosacral region (principal); Z98.1 Arthrodesis status; M96.1 Postlaminectomy syndrome, not elsewhere classified
CPT/HCPCS: 62323; 99152; J0702; J1100; J2250; J3010

== ENCOUNTER → 2021-09-30 15:16 | Outpatient (CLI) | payer OTHER, SELFPAY ==
[2021-09-30 15:58] LABS: Appearance Urine UA CLEAR; Bilirubin Urine UA NEGATIVE (NEGATIVE); Color Urine UA YELLOW; Glucose Urine UA NEGATIVE (Negative); Ketones Urine UA NEGATIVE (NEGATIVE); Leukocyte Esterase Urine UA NEGATIVE (NEGATIVE); Nitrite Urine UA NEGATIVE (Negative); Occult Blood Urine UA NEGATIVE (Negative); Protein Urine UA NEGATIVE (Negative); Specific Gravity Urine UA <=1.005 (1.000-1.035); Urobilinogen Urine UA 0.2 E.U./dL (0.2)
[2021-09-30 16:05] LABS: Bacteria Urine None Seen; Culture Indicated Urine Cult Not Indicated; RBC Urine None Seen (0-5/HPF); Squamous Epithelial Cell Urine 0-1 /HPF (0-5/HPF); WBC Urine 0-1/HPF (0-5/HPF)
[2021-09-30 18:35] LABS: Alanine Aminotransferase 17 IU/L (<35); Albumin 4.3 g/dL (3.5-5.0); Albumin Globulin Ratio 1.5 (1.0-2.8); Alkaline Phosphatase 64 U/L (38-126); Aspartate Aminotransferase 25 IU/L (14-36); BUN Creatinine Ratio 36.5 (6-22); Bilirubin Total 0.4 mg/dL (0.2-1.3); Blood Urea Nitrogen 19 mg/dL (7-17); Calcium 9.2 mg/dL (8.4-10.2); Carbon Dioxide 24 mmol/L (22-32); Chloride 102 mmol/L (98-107); Estimated Glomerular Filt Rate > 60 mL/min (>60); Globulin 2.9 g/dL (1.7-4.1); Glucose 85 mg/dL (80-110); HEMOLYSIS < 15 (0-50); Potassium 4.1 mmol/L (3.4-5.1); Sodium 137 mmol/L (137-145); Total Protein 7.2 g/dL (6.3-8.2)
== END ==
PROVIDERS: PCP Student in an Organized Health Care Education/Training Program; Referring Provider Naturopath; Visit Provider Naturopath
DX: R10.2 Pelvic and perineal pain (principal)
CPT/HCPCS: 36415; 80053; 81001

== ENCOUNTER → 2021-10-26 15:03 | Outpatient (CLI) | payer OTHER, SELFPAY ==
--- NOTE | 2021-10-26 15:05 | DI.RAD.S_ITS ---
PROCEDURE: XR CERVICAL SPINE 4V OR 5V INDICATIONS: neck pain TECHNIQUE: 5 views of the cervical spine acquired. COMPARISON: [facility], CR, XR CERVICAL SPINE 4V OR 5V, 07/02/2018, 14:07. FINDINGS: Bones: No fractures or dislocations to the C7-T1 level. Degenerative endplate changes, loss of disc height and bilateral facet hypertrophic changes are noted throughout cervical spine. Oblique images demonstrate bilateral bony foraminal stenosis at C3-4 and C4-5 levels. Soft tissues: No prevertebral soft tissue swelling. IMPRESSION: Degenerative disc disease throughout cervical spine. No acute fracture or dislocation. Bilateral bony foraminal stenosis at C3-4 and C4-5 levels on oblique views. Dictated by: Jamel Younger M.D. on 10/26/2021 at 16:56 Approved by: Jamel Younger M.D. on 10/26/2021 at 16:57
== END ==
PROVIDERS: PCP Student in an Organized Health Care Education/Training Program; Referring Provider Physical Medicine & Rehabilitation; Visit Provider Physical Medicine & Rehabilitation
DX: M50.30 Other cervical disc degeneration, unspecified cervical region (principal); M48.02 Spinal stenosis, cervical region
CPT/HCPCS: 72050

== ENCOUNTER → 2021-12-01 14:45 | Outpatient (CLI) | payer OTHER, SELFPAY ==
--- NOTE | 2021-12-01 14:46 | DI.CT.S_ITS ---
PROCEDURE: CT SINUS SCREEN WO CON INDICATIONS: Chronic sinusitis TECHNIQUE: Noncontrast 3.0 mm axial images acquired from the frontal sinuses to the mid-sella, with coronal and sagittal reformats. For radiation dose reduction, the following was used: automated exposure control, adjustment of mA and/or kV according to patient size. COMPARISON: None. FINDINGS: Image quality: Excellent. Maxillary Sinuses: No bony remodeling or destruction. Sinuses are clear. Ethmoid Air Cells: No bony remodeling or destruction. Sinuses are clear. Sphenoid Sinuses: No bony remodeling or destruction. Sinuses are clear. Frontal Sinuses: No bony remodeling or destruction. Sinuses are clear. Ostiomeatal Complexes: Ostiomeatal complexes are patent, yet they are constitutionally narrowed, with bilateral Cachorro cells. Miscellaneous: Visualized intra-orbital contents are normal. No jose juan bullosa or paradoxical turbinate curvature. There is wbfi-kr-duberred leftward nasal septal deviation. IMPRESSION: No significant active paranasal sinus disease is seen. Incidental note is made of: Constitutionally narrowed ostiomeatal complexes, with bilateral Cachorro cells. Pzew-[id number] leftward nasal septal deviation Dictated by: Chuckie Vance M.D. on 12/01/2021 at 16:17 Approved by: Chuckie Vance M.D. on 12/01/2021 at 16:20
--- NOTE | 2021-12-01 14:52 | DI.US.S_ITS ---
PROCEDURE: US PELVIC COMPLETE INDICATIONS: PELVIC PAIN TECHNIQUE: Real-time scanning was performed of the pelvic organs, with image documentation. Additional endovaginal scanning was necessary due to incomplete visualization of the adnexal and endometrial structures by transabdominal scanning. COMPARISON: None. FINDINGS: Uterus: Uterus is anteverted and normal in size at 7.3 x 4.2 x 4.5 cm. The myometrium is heterogeneous. The endometrium measures 7.4 mm combined thickness. 3 intramural fibroids are identified, largest measuring up to 3.1 cm. Ovaries: Normal ovaries bilaterally measuring 1.6 x 1.1 x 1.1 cm on the right and 2.7 x 1.5 x 1.2 cm on the left. Other: No pathologic free abdominal or pelvic fluid. IMPRESSION: 1. 3 intra mural fibroids, largest measuring up to 3.1 cm. 2. Normal appearance of the ovaries. We strive to produce accurate, complete, and clear reports of imaging services. To assist us in improving patient care, this report was composed using standard report templates and voice recognition software. Therefore, it may contain abnormal punctuation, insertions and/or omissions. Occasional wrong-word or sound-alike substitutions may occur. Though we review the report and make efforts to correct it, we do recommend that the report be read carefully in proper context to recognize any text inaccuracies. Dictated by: Aubrey SOLO Interpreted: Jojo Contreras MD on 12/01/2021 at 15:55 Transcribed by: ALBIN on 12/01/2021 at 16:00 Approved by: Jojo Contreras M.D. on 12/01/2021 at 17:28
== END ==
PROVIDERS: PCP Student in an Organized Health Care Education/Training Program; Referring Provider Student in an Organized Health Care Education/Training Program; Visit Provider Student in an Organized Health Care Education/Training Program
DX: J32.9 Chronic sinusitis, unspecified (principal); R10.2 Pelvic and perineal pain; D25.1 Intramural leiomyoma of uterus; J34.2 Deviated nasal septum
CPT/HCPCS: 70486; 76830; 76856

== ENCOUNTER → 2022-01-11 10:28 | Outpatient (CLI) | payer OTHER, SELFPAY ==
[2022-01-11 12:15] LABS: COVID19 -Nasal RAPID Negative (Negative)
== END ==
PROVIDERS: PCP Student in an Organized Health Care Education/Training Program; Visit Provider Physical Medicine & Rehabilitation
DX: Z20.822 Contact with and (suspected) exposure to COVID-19 (principal)
CPT/HCPCS: 87635; C9803

== ENCOUNTER 2022-01-12 09:12 | Outpatient (CLI) | payer OTHER, SELFPAY ==
[2022-01-12] VITALS (9 sets, daily range): BP systolic 108–130; BP diastolic 57–67; PULSE 59–66; RESP 16–27; TEMP 36.2; O2SAT 95–99
--- NOTE | 2022-01-12 09:13 | DI.RAD.S_ITS ---
PROCEDURE: PAIN C/T FACET INJ/BLK 1ST L INDICATIONS: SPINAL STENOSIS COMPARISON: None. FINDINGS: Fluoroscopic spot filming was performed to verify placement of spinal needles at the C4-C7 level(s), as labeled on the films. Appropriate location(s) of the needle tip(s) was confirmed by injection of iodinated contrast. IMPRESSION: Fluoroscopic localization at the right C4-5, C5-6, and C6-7 levels was performed. Dictated by: Bhavana Mosqueda M.D. on 01/12/2022 at 14:49 Approved by: Bhavana Msoqueda M.D. on 01/12/2022 at 14:49
[2022-01-12] MEDS: DEXAMETHASONE 10 MG/ML VIAL 30 MG INJ (10:00)
[2022-01-12] MEDS: BUPIVACAINE 0.5% (PF) VIAL 2 ML INJ (10:00)
[2022-01-12] MEDS: IOPAMIDOL 15 ML VIAL 3 ML INJ (10:00)
[2022-01-12] MEDS: MIDAZOLAM 2 MG/2 ML VIAL 4 MG IV (10:02)
--- NOTE | 2022-01-12 10:14 | P.PCN_ITS ---
Date/Time/Diagnoses Date of procedure: 01/12/22 Time of procedure: 10:14 Pre-procedure diagnosis: 1. FACET ARTHROPATHY 2. AXIAL NECK PAIN Post-procedure diagnosis: same Procedure Notes Procedure: 1. FLUOROSCOPICALLY GUIDED, CONTRAST-CONTROLLED RIGHT C4/5, C5/6 AND C6/7 FACET JOINT INJECTIONS WITH CONSCIOUS SEDATION. Indications: Xiao is referred by Dr. Toure for treatment of Axial Neck Pain Physician: Issac Gaspar Total Fluoroscopy time (seconds): 9 Total sedation minutes: 13 Complications: none Procedure in detail & Post-procedure care: DESCRIPTION OF PROCEDURE Fluoroscopically guided, contrast-controlled right C4/5, C5/6 and C6/7 facet joint injections with conscious sedation. Following review of allergy and review of potential side effects and complications, including, but not necessarily limited to, infection, allergic reaction, local tissue breakdown, stroke, temporary or permanent nerve injury and paralysis, the patient indicated that the patient understood and agreed to proceed. An informed consent document was signed by the patient, witnessed by a nurse, and placed in the patient's chart. Additionally, other treatment options including medications, modalities, and physical therapy were reviewed with the patient. After review of previous anaesthesic history and IV conscious sedation the patient was deemed safe to proceed with today?s procedure with IV conscious s edation as ASA class II designation. Safety time-out was performed to confirm patient ID, procedure to be performed and site of procedure. IV sedation was accomplished with a combination of 4mg of Versed was administered by the RN after DO order, titrated to patient comfort during the course of the procedure while the patient remained responsive to all verbal commands In the prone position, following sterile prep and drape of the cervical spine region, the posterior aspect of the right C4/5, C5/6 and C6/7 facet joints were identified fluoroscopically. The skin was anesthetized via a 25-gauge 1.5-inch needle with 1% lidocaine solution into the corresponding facet joints. At this point, a 25-gauge 2.5-inch spinal needle was atraumatically introduced and advanced under fluoroscopic guidance into the corresponding facet joints. Following negative aspiration, injections of approximately 0.2-cc of Isovue 200 confirmed interarticular placement without vascular uptake. At this point, a total of 1 cc including 0.5 cc or 5 mg of dexamethasone combined with 0.5 cc of 1% lidocaine solution was injected without complication into each of the corresponding facet joints. The procedure tolerated the procedure well without signs or symptoms of complications prior to transfer to the recovery area continued monitoring without incident. The patient was then transferred to the recovery area where they were observed for an appropriate period of time after the injection. The patient reported a VAS score of 7 prior to the procedure and a post- procedure VAS of 0. POST OP INSTRUCTIONS They were provided a Pain Log to continue to record their response to the target-specific procedure prior to their follow-up visit with their referring physician. Additionally, specific post-injection care instructions and a contact number to our office were provided if concerns arise regarding possible complications associated with the procedure are suspected.
== END 2022-01-12 10:37 | disposition home or self-care (01) ==
LOC: RAD 09:12
PROVIDERS: PCP Student in an Organized Health Care Education/Training Program; Referring Provider Physical Medicine & Rehabilitation; Visit Provider Physical Medicine & Rehabilitation
DX: M47.812 Spondylosis without myelopathy or radiculopathy, cervical region (principal); M54.2 Cervicalgia; M48.02 Spinal stenosis, cervical region
CPT/HCPCS: 64490; 64491; 64492; 99152; J1100; J2250

== ENCOUNTER → 2022-04-07 09:17 | Outpatient (CLI) | payer OTHER, SELFPAY ==
--- NOTE | 2022-04-07 | DI.MRI.S_ITS ---
PROCEDURE: MR CERVICAL SPINE WO CON INDICATIONS: Spondylosis without myelopathy or radiculopathy, cervical re TECHNIQUE: Noncontrast sagittal T1 spin echo and T2 fast spin echo, sagittal STIR, foraminal oblique sagittal T2 fast spin echo, and axial gradient echo or T2 fast spin echo through the cervical spine. COMPARISON: [facility], MR, MR CERVICAL SPINE WO CON, 07/15/2018, 8:04. FINDINGS: Degenerative straightening of the usual cervical lordosis. Anterolisthesis of C3 on C4 measuring approximately 3 mm is unchanged. Vertebral body heights maintained. No suspicious focal marrow signal abnormality or bone marrow edema. Nonedematous Modic type 2 and 3 degenerative endplate changes present at C4-C5, C5-C6, and most notably at C6-C7. Normal morphology and signal intensity of the cervical cord. There is no syrinx. Prevertebral and paraspinous soft tissues demonstrate no gross abnormality. C2-C3: Moderate neural foraminal narrowing on the right due to facet and uncovertebral hypertrophy. No spinal canal stenosis. No neural foraminal narrowing on the left. C3-C4: Severe bilateral neural foraminal stenosis due to facet and uncovertebral hypertrophy. Moderate spinal canal stenosis due to posterior disc osteophyte complex flattening the ventral cord and posteriorly displacing the cord. CSF surrounding the cord is mostly effaced. C4-C5: Severe bilateral neural foraminal stenosis due to facet and uncovertebral hypertrophy. Moderate spinal canal stenosis due to posterior disc osteophyte complex flattening the ventral cord and posteriorly displacing the cord. CSF surrounding the cord is mostly effaced. C5-C6: Severe bilateral neural foraminal stenosis due to facet and uncovertebral hypertrophy. Mild spinal canal stenosis due to posterior disc osteophyte complex flattening the ventral cord. C6-C7: Severe bilateral neural foraminal stenosis due to facet and uncovertebral hypertrophy. Moderate spinal canal stenosis due to posterior disc osteophyte complex flattening the ventral cord and posteriorly displacing the cord. CSF surrounding the cord is mostly effaced. C7-T1: Mild spinal canal stenosis. Moderate bilateral neural foraminal narrowing. IMPRESSION: Overall moderate to severe multilevel multifactorial degenerative changes. Moderate spinal canal stenosis at C3-C4, C4-C5, and C6-C7. Severe bilateral neural foraminal narrowing from C3-C4 through C6-C7. Moderate neural foraminal narrowing bilaterally at C7-T1 and on the right at C2-C3. Dictated by: Jimmie Lu M.D. on 04/07/2022 at 16:00 Approved by: Jimmie Lu M.D. on 04/07/2022 at 16:04
== END ==
PROVIDERS: PCP Student in an Organized Health Care Education/Training Program; Referring Provider Orthopaedic Surgery; Visit Provider Orthopaedic Surgery
DX: M47.812 Spondylosis without myelopathy or radiculopathy, cervical region (principal); M48.02 Spinal stenosis, cervical region; S16.1XXA Strain of muscle, fascia and tendon at neck level, initial encounter; X58.XXXA Exposure to other specified factors, initial encounter
CPT/HCPCS: 72141

== ENCOUNTER → 2022-05-04 14:12 | Outpatient (CLI) | payer OTHER, SELFPAY ==
[2022-05-04 15:33] LABS: Add Manual Diff / Slide Review NO; Basophils Absolute Auto 0 /uL (0-100); Basophils Percent Auto 0.3 % (0-2); Eosinophils Absolute Auto 100 /uL (0-450); Eosinophils Percent Auto 1.8 % (2-4); Hematocrit 41.3 % (36-46); Hemoglobin 14.3 g/dL (12.0-16.0); Lymphocytes Absolute Auto 2000 /uL (1100-4500); Lymphocytes Percent Auto 27.7 % (25-40); Mean Corpuscular HGB Conc 34.5 % (30-36); Mean Corpuscular Hemoglobin 32.4 PG (26-34); Mean Corpuscular Volume 93.7 fL (80-100); Monocytes Absolute Auto 700 /uL (0-900); Monocytes Percent Auto 9.2 % (3-14); Neutrophils Absolute Auto 4400 /uL (1500-7000); Platelet Count 257 X10^3/uL (150-400); Red Blood Cell Count 4.41 X10^6/uL (4.0-5.2); Red Cell Distribution Width 12.3 % (11.6-14.8); White Blood Cell Count 7.3 X10^3/uL (4.5-11.0)
[2022-05-04 15:43] LABS: BUN Creatinine Ratio 46.2 (6-22); Blood Urea Nitrogen 24 mg/dL (7-17); Calcium 9.6 mg/dL (8.4-10.2); Carbon Dioxide 28 mmol/L (22-32); Chloride 100 mmol/L (98-107); Estimated Glomerular Filt Rate > 60 mL/min (>60); Glucose 84 mg/dL (80-110); HEMOLYSIS < 15 (0-50); Potassium 4.4 mmol/L (3.4-5.1); Sodium 139 mmol/L (137-145)
== END ==
PROVIDERS: PCP Student in an Organized Health Care Education/Training Program; Referring Provider Orthopaedic Surgery; Visit Provider Orthopaedic Surgery
DX: I15.9 Secondary hypertension, unspecified (principal)
CPT/HCPCS: 36415; 80048; 85025

== ENCOUNTER 2022-06-19 16:55 | Emergency (ER) | payer OTHER, SELFPAY ==
[2022-06-19 17:01] VITALS: BP 181/86; PULSE 63; RESP 18; TEMP 36.2; O2SAT 99; BMI 25.5
[2022-06-19 17:16] VITALS: PULSE 61; O2SAT 98
[2022-06-19 17:17] VITALS: BP 159/76; PULSE 61; O2SAT 96
[2022-06-19 18:04] LABS: Alanine Aminotransferase 23 IU/L (<35); Albumin 4.6 g/dL (3.5-5.0); Albumin Globulin Ratio 1.4 (1.0-2.8); Alkaline Phosphatase 68 U/L (38-126); Aspartate Aminotransferase 34 IU/L (14-36); BUN Creatinine Ratio 30.7 (6-22); Bilirubin Total 0.3 mg/dL (0.2-1.3); Blood Urea Nitrogen 23 mg/dL (7-17); Calcium 9.2 mg/dL (8.4-10.2); Carbon Dioxide 27 mmol/L (22-32); Chloride 103 mmol/L (98-107); Estimated Glomerular Filt Rate > 60 mL/min (>60); Globulin 3.4 g/dL (1.7-4.1); Glucose 109 mg/dL (80-110); HEMOLYSIS < 15 (0-50); Lipase 114 U/L (23-300); Potassium 4.1 mmol/L (3.4-5.1); Sodium 139 mmol/L (137-145)
[2022-06-19 18:05] LABS: Add Manual Diff / Slide Review NO; Basophils Absolute Auto 0 /uL (0-100); Basophils Percent Auto 0.4 % (0-2); Eosinophils Absolute Auto 200 /uL (0-450); Eosinophils Percent Auto 2.2 % (2-4); Hematocrit 41.5 % (36-46); Hemoglobin 14.2 g/dL (12.0-16.0); Lymphocytes Absolute Auto 2200 /uL (1100-4500); Lymphocytes Percent Auto 30.1 % (25-40); Mean Corpuscular HGB Conc 34.2 % (30-36); Mean Corpuscular Hemoglobin 31.8 PG (26-34); Mean Corpuscular Volume 93.1 fL (80-100); Monocytes Absolute Auto 700 /uL (0-900); Monocytes Percent Auto 9.2 % (3-14); Neutrophils Absolute Auto 4300 /uL (1500-7000); Neutrophils Percent Auto 58.1 % (50-75); Platelet Count 218 X10^3/uL (150-400); Red Blood Cell Count 4.46 X10^6/uL (4.0-5.2); Red Cell Distribution Width 12.5 % (11.6-14.8); White Blood Cell Count 7.4 X10^3/uL (4.5-11.0)
--- NOTE | 2022-06-19 18:42 | DI.CT.S_ITS ---
PROCEDURE: CT ABDOMEN PELVIS W CON INDICATIONS: RLQ abd pain TECHNIQUE: After the administration of oral and IV contrast, axial sections were acquired from the lung bases to the pubic symphysis. Coronal and sagittal reformats were performed. For radiation dose reduction, the following was used: automated exposure control, adjustment of mA and/or kV according to patient size. COMPARISON: [facility], CT, ABDOMEN/PELVIS WITH CONTRAST, 08/02/2017, 22:01. FINDINGS: Image quality: Portions of the lower pelvis are suboptimally evaluated secondary to metallic streak artifact from spinal fusion hardware. Lung bases: Unremarkable. Heart: No significant findings. ABDOMEN: Liver: Liver is enlarged with steatosis measuring 19.8 cm. Gallbladder: Removed. Biliary ducts: There is mild prominence of the biliary system with common bile duct measuring approximately 1.2 cm compared to 1.0 cm in 2018. Pancreas: Unremarkable. Spleen: Unremarkable. Adrenal Glands: Unremarkable. Kidneys and Ureters: Unremarkable. Stomach and Bowel: Stomach, small bowel loops, and colon are unremarkable. Peritoneum: No abnormal intraperitoneal fluid. No free air. Ventral Wall: No hernia. Abdominal Nodes: No retroperitoneal or mesenteric adenopathy by size criteria. Vessels: Aorta and inferior vena cava are normal in size. PELVIS: Pelvic Organs: Unremarkable. Bladder: Unremarkable. Pelvic Nodes: No enlarged lymph nodes. Miscellaneous: No inguinal hernias are seen. Bones: Unremarkable. IMPRESSION: No acute intra-abdominal or pelvic process. Prominence of the common bile duct suspected to be related to post cholecystectomy sequela. If concern persists, follow-up with correlation with laboratory values. Dictated by: Jojo Contreras M.D. on 06/19/2022 at 19:25 Approved by: Jojo Contreras M.D. on 06/19/2022 at 19:28
--- NOTE | 2022-06-19 18:42 | DI.CT.S_ITS ---
PROCEDURE: CT HEAD/BRAIN WO CON INDICATIONS: headache with slurring words TECHNIQUE: Noncontrast 4.5 mm thick angled axial sections acquired from the foramen magnum to the vertex, with coronal and sagittal reformats. For radiation dose reduction, the following was used: automated exposure control, adjustment of mA and/or kV according to patient size. COMPARISON: [facility], CT, HEAD WITHOUT CONTRAST, 06/25/2017, 13:11. FINDINGS: Image quality: Excellent. CSF spaces: Basal cisterns are patent. No extra-axial fluid collections. Ventricles are normal in size and shape. Brain: No midline shift. No intracranial masses or hemorrhage. Lezama-white matter interface is normal. Skull and face: Calvarium and visualized facial bones are intact, without suspicious lesions. Sinuses: Visualized sinuses and mastoids are clear. IMPRESSION: 1. No acute intracranial process. Dictated by: Jojo Contreras M.D. on 06/19/2022 at 19:25 Approved by: Jojo Contreras M.D. on 06/19/2022 at 19:25
--- NOTE | 2022-06-19 18:42 | ED.GENADULT ---
HPI - General Adult General Chief complaint: Abdominal Pain Stated complaint: LR ab pain. swelling, x10 ill/headach/blurry vison Time Seen by Provider: 06/19/22 17:09 Source: patient Mode of arrival: Ambulatory Limitations: no limitations History of Present Illness HPI narrative: Patient is a 61-year-old female who is here for evaluation of multiple complaints to include 10 days of generalized abdominal pain that was initially described as right lower quadrant pain. Also is having episodes of headache and blurry vision. States that she overall just does not feel very well. No change in bowel habits. No urinary symptoms. No vaginal bleeding. No fevers. No vomiting. No change in her diet no recent antibiotics and no recent travel. Has not tried anything for her symptoms prior to arrival. She has had her gallbladder removed. Two years ago she had an endoscopy and a colonoscopy and was told that everything was unremarkable. Related Data Home Medications Medication Instructions Recorded Confirmed magnesium oxide 400 mg (241.3 mg 400 mg PO QPM ##0 01/21/16 06/14/22 magnesium) tablet calcium carbonate 200 mg calcium 1 tab PO DIRECTED ##0 11/29/16 06/14/22 (500 mg) chewable tablet vitamin B complex (B 1 tab PO DAILY ##0 11/29/16 06/14/22 Complex-Vitamin B12 tablet) cholecalciferol (vitamin D3) 125 5,000 unit PO DAILY 11/12/18 06/14/22 mcg (5,000 unit) capsule ipratropium bromide 42 mcg (0.06 2 spray intranasal ONCE 12/26/21 06/14/22 %) nasal spray cyclosporine 0.05 % eye drops in a 1 drp EYE-BOTH DAILY 04/26/22 06/14/22 dropperette (Restasis) celecoxib 200 mg capsule 200 mg PO DAILY 06/14/22 06/14/22 tramadol 50 mg tablet 50 mg PO BEDTIME 06/14/22 06/14/22 Previous Rx's Medication Instructions Recorded bimatoprost 0.03 % drops with 1 applic topical BEDTIME #3 mL 02/23/21 applicator, eyelash base (Latisse) propranolol 20 mg tablet 20 mg PO BID #180 tabs 06/06/21 estradiol-norethindrone acet 1 See Rx Instructions .Route 08/26/21 mg-0.5 mg tablet .COMPLEX #84 tabs Disabled Parking Permit #1 ea 12/26/21 diclofenac sodium 3 % topical gel 1 applic topical BID #100 grams 01/30/22 trazodone 50 mg tablet 50 mg PO DAILY #90 tabs 04/07/22 progesterone micronized 200 mg See Rx Instructions .Route 04/26/22 capsule .COMPLEX #60 caps zolpidem 10 mg tablet 5 - 10 mg PO BEDTIME PRN insomnia 05/31/22 #20 tabs duloxetine 30 mg capsule,delayed 30 mg PO DAILY #60 caps 06/14/22 release (Cymbalta) Allergies Allergy/AdvReac Type Severity Reaction Status Date / Time latex [LATEX] Allergy Unknown MOUTH Verified 06/19/22 17:01 BECAME RAW gabapentin [GABAPENTIN] AdvReac Mild cognitive Verified 06/19/22 17:01 fog related to dose metoprolol [METOPROLOL] AdvReac Mild abd Verified 06/19/22 17:01 distress and myalgias amoxicillin [AMOXICILLIN] AdvReac Unknown Pt claims Verified 06/19/22 17:01 caused her throat to close up ciprofloxacin [From Cipro] AdvReac Intense Verified 06/19/22 17:01 fatigue and nausea Review of Systems Review of Systems ROS Unobtainable: All systems reviewed & are unremarkable except as noted in HPI and below Patient History Medical History ADHD (attention deficit hyperactivity disorder) Anxiety Cervical stenosis of spinal canal COVID-19 Degenerative joint disease (DJD) of lumbar spine Environmental allergies Facet arthropathy, cervical 2 Hormone replacement therapy Hypertension Impacted foreign body in esophagus Lateral meniscus tear Left knee DJD Osteoarthritis ANNABELLA (stress urinary incontinence, female) Thoracic radiculopathy Surgical History (Updated 06/14/22 @ 09:59 by Issac Gaspar DO) History of abdominoplasty (2003) History of abdominoplasty (2010) History of stress incontinence procedure using tension free vaginal tape (08/16/09) S/P lumbar spinal fusion Status post colonoscopy (03/01/12) Status post laminectomy (2015) Status post lumbar and lumbosacral fusion by anterior technique Family History Father Alcoholism Grandmother Breast cancer Mother Coronary artery disease Family/Other Breast cancer Social History Smoking Status: Never smoker Smoking Status: Never smoker alcohol intake frequency: holidays/special occasions only Substance Use Type: does not use Exam Initial Vital Signs Initial Vital Signs: Vital Signs Temperature 97.2 F L 06/19/22 17:01 Pulse Rate 63 06/19/22 17:01 Respiratory Rate 18 06/19/22 17:01 Blood Pressure 181/86 H 06/19/22 17:01 Pulse Oximetry 99 06/19/22 17:01 Oxygen Delivery Method 06/19/22 17:01 Const General: cooperative and healthy appearing HENMT Head: normal to inspection and normocephalic Eyes EOM: EOM intact bilaterally Resp Effort & Inspection: normal respiratory effort Auscultation: clear to auscultation bilaterally Cardio Rate: regular rate Rhythm: regular rhythm GI Inspection: normal to inspection Palpation: soft, No firm, No guarding and tender (Generalized) Back/Spine/Pelvis Back: No CVA tenderness Skin General: no rashes or lesions noted Neuro General: patient alert, patient awake and moves all extremities Cranial Nerves: CN's II-XI intact bilaterally Cognition: normal cognition Speech: speech normal Extrem General: capillary refill normal Course Orders Ordered: ED Orders 06/19/22 17:15 Complete Blood Count AUTO DIFF Stat Comprehensive Metabolic Panel Stat Lipase Stat 06/19/22 18:42 CT abdomen pelvis w con Stat CT head/brain wo con Stat 06/19/22 18:44 EKG-12 Lead Stat Vital Signs Vital signs: Vital Signs - 8 hr 06/19/22 17:01 06/19/22 17:16 06/19/22 17:17 Temperature 97.2 F L Pulse Rate 63 61 Respiratory Rate 18 Blood Pressure 181/86 H 159/76 H Pulse Oximetry 99 98 Oxygen Delivery Method Room Air 06/19/22 17:17 06/19/22 20:32 Temperature 98 F Pulse Rate 61 65 Respiratory Rate 16 Blood Pressure 152/74 H Pulse Oximetry 96 100 Oxygen Delivery Method Room Air Medical Decision Making Lab Data Lab results reviewed: Yes I reviewed the patient's lab results. 06/19/22 17:15 06/19/22 17:15 Labs: Lab Results 06/19/22 06/19/22 Range/Units 17:15 17:15 WBC 7.4 (4.5-11.0) X10^3/uL RBC 4.46 (4.0-5.2) X10^6/uL Hgb 14.2 (12.0-16.0) g/dL Hct 41.5 (36-46) % MCV 93.1 (80-100) fL MCH 31.8 (26-34) PG MCHC 34.2 (30-36) % RDW 12.5 (11.6-14.8) % Plt Count 218 (150-400) X10^3/uL Neut % (Auto) 58.1 (50-75) % Lymph % (Auto) 30.1 (25-40) % [place] % (Auto) 9.2 (3-14) % Eos % (Auto) 2.2 (2-4) % Baso % (Auto) 0.4 (0-2) % Neut # (Auto) 4300 (9677-9922) /uL Lymph # (Auto) 2200 (0806-5191) /uL [place] # (Auto) 700 (0-900) /uL Eos # (Auto) 200 (0-450) /uL Baso # (Auto) 0 (0-100) /uL Sodium 139 (137-145) mmol/L Potassium 4.1 (3.4-5.1) mmol/L Chloride 103 (98-107) mmol/L Carbon Dioxide 27 (22-32) mmol/L BUN 23 H (7-17) mg/dL Creatinine 0.75 (0.52-1.04) mg/dL Estimated GFR > 60 (>60) mL/min BUN/Creatinine Ratio 30.7 H (6-22) Glucose 109 (80-110) mg/dL Calcium 9.2 (8.4-10.2) mg/dL Total Bilirubin 0.3 (0.2-1.3) mg/dL AST 34 (14-36) IU/L ALT 23 (<35) IU/L Alkaline Phosphatase 68 (38-126) U/L Total Protein 8.0 (6.3-8.2) g/dL Albumin 4.6 (3.5-5.0) g/dL Globulin 3.4 (1.7-4.1) g/dL Albumin/Globulin Ratio 1.4 (1.0-2.8) Lipase 114 (23-300) U/L Urine Dip Bedside Urine Glucose Negative Bedside Urine Bilirubin - Negative Bedside Urine Ketone - Negative Urine Specific [place] 1.015 Bedside Urine Occult Blood - Negative Bedside Urine pH 6.0 Bedside Urine Protein - Negative Bedside Urine Urobilinogen - Negative Bedside Urine Nitrite - Negative Bedside Urine Leukocytes - Negative Esterase Point of care testing: Urine Dip Bedside Urine Glucose Negative Bedside Urine Bilirubin - Negative Bedside Urine Ketone - Negative Urine Specific [place] 1.015 Bedside Urine Occult Blood - Negative Bedside Urine pH 6.0 Bedside Urine Protein - Negative Bedside Urine Urobilinogen - Negative Bedside Urine Nitrite - Negative Bedside Urine Leukocytes - Negative Esterase Imaging Data CT scan - abdomen/pelvis: Radiologist's Impression: [address] [address] [address] Scan Report Signed Patient: Xiao Haynes MR#: [id number] : 1960 Acct:[id number] Age/Sex: 61 / F Date of Service: 06/19/22 Loc: ED Accession Number: [id number] ?? Procedure: CT abdomen pelvis w con Ordering Provider: Rubin Garcia D.O. PROCEDURE:? CT ABDOMEN PELVIS W CON ? INDICATIONS:? RLQ abd pain ? TECHNIQUE:? After the administration of oral and IV contrast, axial sections were acquired from the lung bases to the pubic symphysis.? Coronal and sagittal reformats were performed.? For radiation dose reduction, the following was used:? automated exposure control, adjustment of mA and/or kV according to patient size. ? COMPARISON:? [facility], CT, ABDOMEN/PELVIS WITH CONTRAST, 08/02/2017, 22:01. ? FINDINGS:? Image quality:? Portions of the lower pelvis are suboptimally evaluated secondary to metallic streak artifact from spinal fusion hardware. ? Lung bases:? Unremarkable.? ? Heart:? No significant findings. ? ? ABDOMEN: Liver:? Liver is enlarged with steatosis measuring 19.8 cm. Gallbladder:? Removed.? ? Biliary ducts:? There is mild prominence of the biliary system with common bile duct measuring approximately 1.2 cm compared to 1.0 cm in 2018. Pancreas:? Unremarkable.? ? Spleen:? Unremarkable.? ? Adrenal Glands:? Unremarkable.? ? Kidneys and Ureters:? Unremarkable.? ? ? Stomach and Bowel:? Stomach, small bowel loops, and colon are unremarkable.? Peritoneum:? No abnormal intraperitoneal fluid.? No free air.? ? Ventral Wall: ? No hernia.? Abdominal Nodes:? No retroperitoneal or mesenteric adenopathy by size criteria.? Vessels:? Aorta and inferior vena cava are normal in size.? ? PELVIS: Pelvic Organs:? Unremarkable.? ? Bladder:? Unremarkable.? ? Pelvic Nodes: No enlarged lymph nodes.? Miscellaneous: No inguinal hernias are seen. ? ? ? Bones:? Unremarkable.? IMPRESSION:? ? No acute intra-abdominal or pelvic process. ? Prominence of the common bile duct suspected to be related to post cholecystectomy sequela.? If concern persists, follow-up with correlation with laboratory values. ? ? Dictated by: Jojo Contreras M.D. on 06/19/2022 at 19:25 ? ? Approved by: Jojo Contreras M.D. on 06/19/2022 at 19:28? CT scan - head: Radiologist's Impression: [address] [address] [address] Scan Report Signed Patient: Xiao Haynes MR#: [id number] : 1960 Acct:[id number] Age/Sex: 61 / F Date of Service: 06/19/22 Loc: ED Accession Number: [id number] ?? Procedure: CT head/brain wo con Ordering Provider: Rubin Garcia D.O. PROCEDURE:? CT HEAD/BRAIN WO CON ? INDICATIONS:? headache with slurring words ? TECHNIQUE:? Noncontrast 4.5 mm thick angled axial sections acquired from the foramen magnum to the vertex, with coronal and sagittal reformats.? For radiation dose reduction, the following was used:? automated exposure control, adjustment of mA and/or kV according to patient size.? ? COMPARISON:? [facility], CT, HEAD WITHOUT CONTRAST, 06/25/2017, 13:11. ? FINDINGS:? Image quality:? Excellent.? ? CSF spaces:? Basal cisterns are patent.? No extra-axial fluid collections.? Ventricles are normal in size and shape.? ? Brain:? No midline shift.? No intracranial masses or hemorrhage.? Lezama-white matter interface is normal.? ? Skull and face:? Calvarium and visualized facial bones are intact, without suspicious lesions.? ? Sinuses:? Visualized sinuses and mastoids are clear.? ? IMPRESSION:? ? 1. No acute intracranial process. ? ? Dictated by: Jojo Contreras M.D. on 06/19/2022 at 19:25 ? ? Approved by: Jojo Contreras M.D. on 06/19/2022 at 19:25? ECG Data Attestation: I personally reviewed and interpreted this ECG as follows: Interpretation: Sinus bradycardia Ventricular rate 57 Normal axis Normal QRS Normal QTC no ST T wave changes MDM Narrative Medical decision making narrative: Workup here in the emergency department is unremarkable to include labs and CT scan. Has no indication of acute surgical intra-abdominal pathology. I do have low suspicion for an acute common bile duct stone based on her presentation today. Lipase and LFTs are unremarkable. Head CT is unremarkable. Nonfocal neurologic exam. Patient is aware of the lack of a definitive diagnosis for her symptoms. We did discuss the possibility of a stomach ulcer. She stated that she actually thought that bought some omeprazole earlier today had the store. We discussed the use of this medication and I feel that her taking it would be appropriate. No indication for admission in the hospital. No indication for surgical consultation. We discussed return precautions and follow-up instructions with her primary doctor. She expressed understanding and agreement. Discharge Plan Departure Patient Disposition: Home Clinical Impression: Abdominal pain Instructions: DI for Abdominal Pain-Adult Activity Restrictions/Additional Instructions: I do recommend that you take the omeprazole at home like we discussed. Also recommend contact your primary doctor for a follow-up. Return to the emergency department for any new symptoms. Prescriptions: No Action magnesium oxide 400 MG tablet 400 mg PO QPM Qty: 0 calcium carbonate 200 MG tablet,chewable 1 tab PO DIRECTED Qty: 0 vitamin B complex [B Complex-Vitamin B12] 1 EACH tablet 1 tab PO DAILY Qty: 0 bimatoprost [Latisse] 0.03 % drops with applicator 1 applic Topical BEDTIME Qty: 3 2RF propranolol 20 mg tablet 20 mg PO BID Qty: 180 1RF estradiol-norethindrone acet 1-0.5 mg tablet See Rx Instructions .ROUTE .COMPLEX Qty: 84 3RF Dose Instruction: take 1 tablet by mouth once daily Rx Instructions: take 1 tablet by mouth once daily diclofenac sodium 3 % gel 1 applic TOP BID Qty: 100 11RF trazodone 50 mg tablet 50 mg PO DAILY Qty: 90 1RF progesterone micronized 200 mg capsule See Rx Instructions .ROUTE .COMPLEX Qty: 60 6RF Dose Instruction: take 1 capsule by mouth twice a day Rx Instructions: take 1 capsule by mouth twice a day zolpidem 10 mg tablet 5 - 10 mg PO BEDTIME PRN (Reason: insomnia) Qty: 20 3RF Rx Instructions: Not to be used on 2 consecutive nights. cholecalciferol (vitamin D3) 5,000 unit capsule 5,000 unit PO DAILY ipratropium bromide 42 mcg (0.06 %) spray,non-aerosol 2 spray intranasal ONCE (DME) Disabled Parking Permit See Rx Instructions .ROUTE .MEDSUPPLY Qty: 1 0RF Rx Instructions: Patient qualifies for disabled parking as per the attached form. cyclosporine [Restasis] 0.05 % dropperette 1 drp EYE-BOTH DAILY celecoxib 200 mg capsule 200 mg PO DAILY Label Comments: take 1 capsule by mouth once daily tramadol 50 mg tablet 50 mg PO BEDTIME duloxetine [Cymbalta] 30 mg capsule,delayed release(DR/EC) 30 mg PO DAILY MDD 2 Qty: 60 3RF Referrals: Kameron Toure MD [Primary Care Provider] - Stand Alone Forms: Patient Portal/API
[2022-06-19 20:32] VITALS: BP 152/74; PULSE 65; RESP 16; TEMP 36.6; O2SAT 100
== END 2022-06-19 20:33 | disposition home or self-care (01) ==
PROVIDERS: Emergency Medicine; Emergency Provider Emergency Medicine; Family Provider Student in an Organized Health Care Education/Training Program; PCP Student in an Organized Health Care Education/Training Program
DX: R10.31 Right lower quadrant pain (principal); R51.9 Headache, unspecified; R47.81 Slurred speech
CPT/HCPCS: 36415; 70450; 74177; 80053; 81003; 83690; 85025; 93005; 93010; 99284; Q9967

== ENCOUNTER → 2022-06-27 12:47 | Outpatient (CLI) | payer OTHER, SELFPAY ==
--- NOTE | 2022-06-27 | DI.MG.S_ITS ---
BILATERAL DIGITAL SCREENING MAMMOGRAM 3D/2D WITH CAD: 06/27/2022 CLINICAL: Routine screening. Family history of breast cancer. Comparison is made to exams dated: 06/22/2021 mammogram, 11/04/2020 mammogram, 06/28/2020 mammogram, 04/26/2020 mammogram - [facility], and 04/10/2020 mammogram - [facility]. Both breasts are heterogeneously dense, which may obscure small masses (category c / 51-75% glandular tissue). Current study was also evaluated with a Computer Aided Detection (CAD) system. There are benign calcifications in both breasts. There also are benign post operative findings in both breasts. No significant masses, calcifications, or other findings are seen in either breast. There has been no significant interval change. IMPRESSION: BENIGN There is no mammographic evidence of malignancy. A 1 year screening mammogram is recommended. This exam was interpreted at Station ID: [id number]. NOTE: For mammograms, a report in lay terms will be sent to the patient. Approximately 15% of breast malignancies will not be visualized mammographically. In the management of a palpable breast mass, a negative mammogram must not discourage biopsy of a clinically suspicious lesion. Electronically Signed By: Bhavana ibrahim/delfina:06/27/2022 16:56:26 copy to: ELLIOTT PADILLA letter sent: Normal Exam ACR BI-RADS Category 2: Benign Finding(s) 3342F
== END ==
PROVIDERS: Family Provider Student in an Organized Health Care Education/Training Program; PCP Student in an Organized Health Care Education/Training Program; Referring Provider Student in an Organized Health Care Education/Training Program; Visit Provider Student in an Organized Health Care Education/Training Program
DX: Z12.31 Encounter for screening mammogram for malignant neoplasm of breast (principal); Z80.3 Family history of malignant neoplasm of breast
CPT/HCPCS: 77063; 77067

== ENCOUNTER 2022-07-27 09:10 | Outpatient (CLI) | payer OTHER, SELFPAY ==
[2022-07-27] VITALS (10 sets, daily range): BP systolic 100–161; BP diastolic 53–72; PULSE 61–71; RESP 17–24; TEMP 36.4; O2SAT 96–100
--- NOTE | 2022-07-27 09:11 | DI.RAD.S_ITS ---
PROCEDURE: PAIN C/T INTERLAMINAR INJECT INDICATIONS: SPONDYLOSIS COMPARISON: [facility], XA, PAIN C/T INTERLAMINAR INJECT, 05/10/2021, 10:50. [facility], MR, MR CERVICAL SPINE WO CON, 04/07/2022, 9:35. [facility], XA, PAIN C/T FACET INJ/BLK 1ST L, 01/12/2022, 10:01. FINDINGS: Fluoroscopic spot filming was performed to verify placement of a spinal needle at the C7-T1 level, as labeled on the films. Appropriate location of the needle tip was confirmed by injection of iodinated contrast. IMPRESSION: Intraprocedural examination within normal limits. Dictated by: Chuckie Vance M.D. on 07/27/2022 at 14:13 Approved by: Chuckie Vance M.D. on 07/27/2022 at 14:13
[2022-07-27] MEDS: MIDAZOLAM 2 MG/2 ML VIAL IV (10:28)
[2022-07-27] MEDS: DEXAMETHASONE 10 MG/ML VIAL 30 MG INJ (10:32)
[2022-07-27] MEDS: IOPAMIDOL 15 ML VIAL 3 ML INJ (10:32)
[2022-07-27] MEDS: BUPIVACAINE 0.25% (PF) VIAL 5 ML SUBCUT (10:33)
--- NOTE | 2022-07-27 10:46 | P.PCN_ITS ---
Date/Time/Diagnoses Date of procedure: 07/27/22 Time of procedure: 10:46 Pre-procedure diagnosis: 1. CERVICAL STENOSIS, 2. CERVICAL HNP WITH UPPER EXTREMITY RADICULAR FEATURES Procedure Notes Procedure: FLUORSCOPICALLY GUIDED CONTRAST CONTROLLED INTERLAMINAR EPIDURAL STEROID INJECTION - C7/T1 TL JOVANNY Indications: Xiao is referred by Dr. Toure for treatment of Cervical Stenosis. Physician: Issac Gaspar Total Fluoroscopy time (seconds): 35 Total sedation minutes: 14 Complications: none Procedure in detail & Post-procedure care: DESCRIPTION OF PROCEDURE Following review of allergy and review of potential side effects and c omplications, including, but not necessarily limited to, infection, allergic reaction, local tissue breakdown, temporary as well as permanent nerve injury, stroke, paralysis, and possible , the patient indicated that patient understood and agreed to proceed. An informed consent document was signed by the patient, witnessed by a nurse, and placed in the patient's chart. Additionally, other treatment options including modalities, medications, and physical therapy were reviewed with the patient. After review of previous anaesthesic history and IV conscious sedation the patient was deemed safe to proceed with todays procedure with IV conscious sedation as ASA class II designation. Safety time-out was performed to confirm patient ID, procedure to be performed and site of procedure. IV sedation was accomplished with a combination of 2mg of Versed administered by the RN after DO order, titrated to patient comfort during the course of the procedure while the patient remained responsive to all verbal commands. In the prone position, following sterile prep and drape of the cervical region, the C7/T1 translaminar space was identified fluoroscopically. The skin was anesthetized via a 25-gauge 1.5-inch needle with 1% lidocaine solution. At this point, a 25-gauge, 2.5-inch short bevel spinal needle was atraumatically introduced and advanced under fluoroscopic guidance into epidural space at the C7/T1 translaminar space. Depth was confirmed on lateral view. Radiological data, including multiple fluoroscopic views of the cervical spine, reveal a spinal needle at the C7/T1 translaminar space. Lateral views then show placement of the needle in the epidural space. Subsequent views show contrast material flowing superiorly and inferiorly in the epidural space. DSA fluorosc opy with live contrast injection, once again, confirmed no vascular or intrathecal uptake. At this point, using loss of resistance technique with saline and air, the epidural space was entered. Following negative aspiration, injection of approximately 1.5 cc of Isovue-200 with live fluoroscopy in the AP view confirmed epidural flow in the epidural space without vascular or intrathecal uptake observed. Subsequently, a test dose of 1 cc of 1% lidocaine solution was injected and patient was observed for two minutes without signs or symptoms of complications, including abdominal pain, shortness of breath, bilateral upper or lower extremity weakness, nausea and vomiting, prior to steroid injection. At this point, 3cc or 30mg of dexamethasone was then injected without incident. The patient tolerated the procedure well without signs or symptoms of complications prior to transfer to the recovery area for further monitoring The patient was then transferred to the recovery area where they were observed for an appropriate period of time after the injection. The patient reported a VAS score of 7 prior to the procedure and a post-procedure VAS of 1 POST OP INSTRUCTIONS The patient was provided a Pain Log to continue to record the patient's response to the target-specific procedure prior to the patient's follow-up visit with the referring physician. Additionally, specific post-injection care instructions and a contact number to our office were provided if concerns arise regarding possible complications associated with the procedure are suspected.
== END 2022-07-27 11:06 | disposition home or self-care (01) ==
PROVIDERS: Family Provider Student in an Organized Health Care Education/Training Program; PCP Student in an Organized Health Care Education/Training Program; Referring Provider Physical Medicine & Rehabilitation; Visit Provider Physical Medicine & Rehabilitation
DX: M48.02 Spinal stenosis, cervical region (principal); M50.13 Cervical disc disorder with radiculopathy, cervicothoracic region
CPT/HCPCS: 62321; 99152; J1100; J2250; J3490

== ENCOUNTER 2022-08-30 00:14 | Emergency (ER) | payer OTHER, SELFPAY ==
[2022-08-30 00:33] VITALS: BP 164/77; PULSE 67; RESP 18; TEMP 36.6; O2SAT 98; BMI 26.4
--- NOTE | 2022-08-30 00:43 | ED.GENADULT ---
HPI - General Adult General Chief complaint: Urogenital-Female Stated complaint: bladder infection Time Seen by Provider: 08/30/22 00:35 Source: patient Mode of arrival: Ambulatory History of Present Illness HPI narrative: 61-year-old female who was having some pelvic pressure. Went to her naturopathic provider told her that the mesh that was placed several years ago could potentially be ?failing? she does have an appointment to see her qa automation engineer doctor but that is not for another couple weeks. States over the past couple days she has been having quite a bit of fatigue. She states she feels like her abdomen is bloated. She urinates frequently. No vaginal bleeding. No diarrhea. Is having some nausea but no vomiting. No fevers. Patient was concerned about a potential bladder infection. Related Data Home Medications Medication Instructions Recorded Confirmed magnesium oxide 400 mg (241.3 mg 400 mg PO QPM ##0 01/21/16 06/14/22 magnesium) tablet calcium carbonate 200 mg calcium 1 tab PO DIRECTED ##0 11/29/16 06/14/22 (500 mg) chewable tablet vitamin B complex (B 1 tab PO DAILY ##0 11/29/16 06/14/22 Complex-Vitamin B12 tablet) cholecalciferol (vitamin D3) 125 5,000 unit PO DAILY 11/12/18 06/14/22 mcg (5,000 unit) capsule ipratropium bromide 42 mcg (0.06 2 spray intranasal ONCE 12/26/21 06/14/22 %) nasal spray cyclosporine 0.05 % eye drops in a 1 drp EYE-BOTH DAILY 04/26/22 06/14/22 dropperette (Restasis) celecoxib 200 mg capsule 200 mg PO DAILY 06/14/22 06/14/22 tramadol 50 mg tablet 50 mg PO BEDTIME 06/14/22 06/14/22 Previous Rx's Medication Instructions Recorded bimatoprost 0.03 % drops with 1 applic topical BEDTIME #3 mL 02/23/21 applicator, eyelash base (Latisse) Disabled Parking Permit #1 ea 12/26/21 diclofenac sodium 3 % topical gel 1 applic topical BID #100 grams 01/30/22 trazodone 50 mg tablet 50 mg PO DAILY #90 tabs 04/07/22 progesterone micronized 200 mg See Rx Instructions .Route 04/26/22 capsule .COMPLEX #60 caps zolpidem 10 mg tablet 5 - 10 mg PO BEDTIME PRN insomnia 05/31/22 #20 tabs propranolol 20 mg tablet 20 mg PO BID #180 tabs 07/04/22 duloxetine 60 mg capsule,delayed 60 mg PO DAILY #90 caps 08/02/22 release (Cymbalta) estradiol-norethindrone acet 1 See Rx Instructions .Route 08/07/22 mg-0.5 mg tablet .COMPLEX #84 tabs Allergies Allergy/AdvReac Type Severity Reaction Status Date / Time latex [LATEX] Allergy Unknown MOUTH Verified 06/19/22 17:01 BECAME RAW gabapentin [GABAPENTIN] AdvReac Mild cognitive Verified 06/19/22 17:01 fog related to dose metoprolol [METOPROLOL] AdvReac Mild abd Verified 06/19/22 17:01 distress and myalgias amoxicillin [AMOXICILLIN] AdvReac Unknown Pt claims Verified 06/19/22 17:01 caused her throat to close up ciprofloxacin [From Cipro] AdvReac Intense Verified 06/19/22 17:01 fatigue and nausea Review of Systems Constitutional Constitutional: Reports system reviewed and no additional complaints, except as documented Gastrointestinal Gastrointestinal: Reports system reviewed and no additional complaints, except as documented Genitourinary Genitourinary: Reports system reviewed and no additional complaints, except as documented Integumentary/Breasts Skin/Breast: Reports system reviewed and no additional complaints, except as documented Patient History Medical History ADHD (attention deficit hyperactivity disorder) Anxiety Cervical stenosis of spinal canal COVID-19 Degenerative joint disease (DJD) of lumbar spine Environmental allergies Facet arthropathy, cervical 2 Hormone replacement therapy Hypertension Impacted foreign body in esophagus Lateral meniscus tear Left knee DJD Osteoarthritis ANNABELLA (stress urinary incontinence, female) Thoracic radiculopathy Surgical History (Updated 06/14/22 @ 09:59 by Issac Gaspar DO) History of abdominoplasty (2003) History of abdominoplasty (2010) History of stress incontinence procedure using tension free vaginal tape (08/16/09) S/P lumbar spinal fusion Status post colonoscopy (03/01/12) Status post laminectomy (2015) Status post lumbar and lumbosacral fusion by anterior technique Family History Father Alcoholism Grandmother Breast cancer Mother Coronary artery disease Family/Other Breast cancer Social History Smoking Status: Never smoker Smoking Status: Never smoker alcohol intake frequency: holidays/special occasions only Substance Use Type: does not use Exam Initial Vital Signs Initial Vital Signs: Vital Signs Temperature 97.8 F 08/30/22 00:33 Pulse Rate 67 08/30/22 00:33 Respiratory Rate 18 08/30/22 00:33 Blood Pressure 164/77 H 08/30/22 00:33 Pulse Oximetry 98 08/30/22 00:33 Oxygen Delivery Method Room Air 08/30/22 00:33 Const General: cooperative and comfortable HENMT Head: normal to inspection and normocephalic Resp Effort & Inspection: normal respiratory effort Cardio Rate: regular rate GI Inspection: normal to inspection and non-distended Neuro General: patient alert and patient awake Extrem General: normal to inspection Course Orders Ordered: ED Orders 08/30/22 02:03 Urinalysis and Microscopic Stat Ondansetron HCl (Ondansetron 4 Mg Odt Prepack) 1 bottle MISC SEEINSTR ONE Stop: 08/30/22 02:55 Vital Signs Vital signs: Vital Signs - 8 hr 08/30/22 00:33 Temperature 97.8 F Pulse Rate 67 Respiratory Rate 18 Blood Pressure 164/77 H Pulse Oximetry 98 Oxygen Delivery Method Room Air Medical Decision Making Lab Data Lab results reviewed: Yes I reviewed the patient's lab results. Labs: Lab Results 08/30/22 Range/Units 02:03 Urine Color Yellow Urine Appearance Clear Urine pH 6.0 (4.5-8.0) Ur Specific [place] <=1.005 (1.000-1.035) Urine Protein Negative (Negative) Urine Glucose (UA) Negative (Negative) g/dL Urine Ketones Negative (NEGATIVE) Urine Occult Blood Negative (Negative) Urine Nitrate Negative (Negative) Urine Bilirubin Negative (NEGATIVE) Urine Urobilinogen 0.2 (0.2) E.U./dL Ur Leukocyte Esterase Negative (NEGATIVE) Urine RBC None seen (0-5/HPF) Urine WBC 0-1/hpf (0-5/HPF) Ur Squamous Epith Cells 1-5 /hpf (0-5/HPF) Urine Bacteria Occasional (0-1) (None) Ur Culture Indicated? Cult not indicated MDM Narrative Medical decision making narrative: Urinalysis is not consistent with a urinary tract infection. Her abdominal exam is benign. Feel that doing a pelvic exam would not add anything to her workup here today so we will hold on this. Bladder scan does show greater than 300 cc of urine in her bladder after voiding. We did discuss the possibility of a bladder prolapse in the fact that she is not able to empty her bladder completely. We discussed potentially placing a Post catheter to try to help with her symptoms however she declined. I do not think that this is unreasonable given her presentation. We also discussed potentially doing a CT scan but once again I feel that it is unlikely that she is got an acute surgical intra-abdominal issue such as a bowel obstruction or appendicitis. There was no indication for antibiotics. Will have the patient follow-up with her primary doctor. She expressed understanding and agreement with plan. Discharge Plan Departure Patient Disposition: Home Clinical Impression: Dysuria, Nausea Instructions: DI for Nausea -- Adult, DI for Dysuria -- Adult Activity Restrictions/Additional Instructions: I do recommend that you continue to take all of your medications as directed. I also recommend that you follow-up with your qa automation engineer provider to discuss the issues that you were having with the bladder mesh. Return to the emergency department for new or worsening symptoms. Prescriptions: No Action magnesium oxide 400 MG tablet 400 mg PO QPM Qty: 0 calcium carbonate 200 MG tablet,chewable 1 tab PO DIRECTED Qty: 0 vitamin B complex [B Complex-Vitamin B12] 1 EACH tablet 1 tab PO DAILY Qty: 0 bimatoprost [Latisse] 0.03 % drops with applicator 1 applic Topical BEDTIME Qty: 3 2RF diclofenac sodium 3 % gel 1 applic TOP BID Qty: 100 11RF trazodone 50 mg tablet 50 mg PO DAILY Qty: 90 1RF progesterone micronized 200 mg capsule See Rx Instructions .ROUTE .COMPLEX Qty: 60 6RF Dose Instruction: take 1 capsule by mouth twice a day Rx Instructions: take 1 capsule by mouth twice a day zolpidem 10 mg tablet 5 - 10 mg PO BEDTIME PRN (Reason: insomnia) Qty: 20 3RF Rx Instructions: Not to be used on 2 consecutive nights. propranolol 20 mg tablet 20 mg PO BID Qty: 180 1RF duloxetine [Cymbalta] 60 mg capsule,delayed release(DR/EC) 60 mg PO DAILY Qty: 90 2RF estradiol-norethindrone acet 1-0.5 mg tablet See Rx Instructions .ROUTE .COMPLEX Qty: 84 3RF Dose Instruction: take 1 tablet by mouth once daily Rx Instructions: take 1 tablet by mouth once daily cholecalciferol (vitamin D3) 5,000 unit capsule 5,000 unit PO DAILY ipratropium bromide 42 mcg (0.06 %) spray,non-aerosol 2 spray intranasal ONCE (DME) Disabled Parking Permit See Rx Instructions .ROUTE .MEDSUPPLY Qty: 1 0RF Rx Instructions: Patient qualifies for disabled parking as per the attached form. cyclosporine [Restasis] 0.05 % dropperette 1 drp EYE-BOTH DAILY celecoxib 200 mg capsule 200 mg PO DAILY Patient Comments: take 1 capsule by mouth once daily tramadol 50 mg tablet 50 mg PO BEDTIME Referrals: Kameron Toure MD [Primary Care Provider] - Stand Alone Forms: Patient Portal/API
[2022-08-30 02:29] LABS: Appearance Urine UA CLEAR; Bilirubin Urine UA NEGATIVE (NEGATIVE); Color Urine UA YELLOW; Glucose Urine UA NEGATIVE (Negative); Ketones Urine UA NEGATIVE (NEGATIVE); Leukocyte Esterase Urine UA NEGATIVE (NEGATIVE); Nitrite Urine UA NEGATIVE (Negative); Occult Blood Urine UA NEGATIVE (Negative); Protein Urine UA NEGATIVE (Negative); Specific Gravity Urine UA <=1.005 (1.000-1.035); Urobilinogen Urine UA 0.2 E.U./dL (0.2)
[2022-08-30 02:39] LABS: RBC Urine None Seen (0-5/HPF); WBC Urine 0-1/HPF (0-5/HPF)
[2022-08-30 02:40] LABS: Bacteria Urine Occasional (0-1); Culture Indicated Urine Cult Not Indicated; Squamous Epithelial Cell Urine 1-5 /HPF (0-5/HPF)
[2022-08-30] MEDS: ONDANSETRON 4 MG ODT PREPACK 1 BOTTLE MISC (03:00)
== END 2022-08-30 03:04 | disposition home or self-care (01) ==
PROVIDERS: Emergency Provider Emergency Medicine; Family Provider Student in an Organized Health Care Education/Training Program; PCP Student in an Organized Health Care Education/Training Program
DX: R30.0 Dysuria (principal); R11.0 Nausea
CPT/HCPCS: 51798; 81001; 99282; 99283

== ENCOUNTER → 2022-09-05 08:40 | Outpatient (CLI) | payer OTHER, SELFPAY ==
[2022-09-05 09:58] LABS: Add Manual Diff / Slide Review NO; Basophils Absolute Auto 0 /uL (0-100); Basophils Percent Auto 0.5 % (0-2); Eosinophils Absolute Auto 100 /uL (0-450); Eosinophils Percent Auto 2.3 % (2-4); Hemoglobin 13.7 g/dL (12.0-16.0); Lymphocytes Absolute Auto 1300 /uL (1100-4500); Lymphocytes Percent Auto 24.6 % (25-40); Mean Corpuscular HGB Conc 35.1 % (30-36); Mean Corpuscular Hemoglobin 32.3 PG (26-34); Mean Corpuscular Volume 92.1 fL (80-100); Monocytes Absolute Auto 500 /uL (0-900); Monocytes Percent Auto 8.8 % (3-14); Neutrophils Absolute Auto 3300 /uL (1500-7000); Neutrophils Percent Auto 63.8 % (50-75); Platelet Count 201 X10^3/uL (150-400); Red Blood Cell Count 4.23 X10^6/uL (4.0-5.2); Red Cell Distribution Width 12.6 % (11.6-14.8); White Blood Cell Count 5.1 X10^3/uL (4.5-11.0)
[2022-09-05 11:32] LABS: Alanine Aminotransferase 23 IU/L (<35); Albumin 4.5 g/dL (3.5-5.0); Albumin Globulin Ratio 1.7 (1.0-2.8); Alkaline Phosphatase 66 U/L (38-126); Aspartate Aminotransferase 26 IU/L (14-36); BUN Creatinine Ratio 27.4 (6-22); Bilirubin Total 0.5 mg/dL (0.2-1.3); Blood Urea Nitrogen 17 mg/dL (7-17); Calcium 9.4 mg/dL (8.4-10.2); Carbon Dioxide 28 mmol/L (22-32); Chloride 102 mmol/L (98-107); Cholesterol 162 mg/dL (140-199); Estimated Glomerular Filt Rate > 60 mL/min (>60); Globulin 2.7 g/dL (1.7-4.1); Glucose 97 mg/dL (80-110); HDL Cholesterol 45 mg/dL (40-60); HEMOLYSIS < 15 (0-50); LDL Cholesterol Calculated 91 mg/dL (<100); Potassium 4.6 mmol/L (3.4-5.1); Sodium 138 mmol/L (137-145); Total Protein 7.2 g/dL (6.3-8.2); Triglycerides 132 mg/dL (35-150)
[2022-09-05 12:03] LABS: Thyroid Stimulating Hormone 0.682 uIU/mL (0.47-4.68)
[2022-09-05 14:17] LABS: Free T3, Triiodothyronine Free 3.43 pg/mL (2.77-5.27); Free T4, Direct Thyroxine 0.99 ng/dL (0.78-2.19)
[2022-09-07 19:07] LABS: Anti Thyroglobulin Antibody <1.0 IU/mL (0.0-0.9); Thyroid Peroxidase Antibodies <9 IU/mL (0-34)
== END ==
PROVIDERS: Family Provider Student in an Organized Health Care Education/Training Program; PCP Student in an Organized Health Care Education/Training Program; Referring Provider Naturopath; Visit Provider Naturopath
DX: Z00.00 Encounter for general adult medical examination without abnormal findings (principal); R94.6 Abnormal results of thyroid function studies
CPT/HCPCS: 36415; 80053; 80061; 84439; 84443; 84481; 85025; 86376; 86800

== ENCOUNTER → 2022-10-25 10:34 | Outpatient (CLI) | payer OTHER, SELFPAY ==
[2022-10-25 13:38] LABS: BUN Creatinine Ratio 34.5 (6-22); Blood Urea Nitrogen 20 mg/dL (7-17); Calcium 9.1 mg/dL (8.4-10.2); Carbon Dioxide 28 mmol/L (22-32); Chloride 101 mmol/L (98-107); Estimated Glomerular Filt Rate > 60 mL/min (>60); Glucose 102 mg/dL (80-110); HEMOLYSIS < 15 (0-50); Potassium 4.4 mmol/L (3.4-5.1); Sodium 138 mmol/L (137-145)
== END ==
PROVIDERS: Family Provider Pediatrics; PCP Pediatrics; Referring Provider Pediatrics; Visit Provider Pediatrics
DX: F11.20 Opioid dependence, uncomplicated (principal); M41.9 Scoliosis, unspecified; M48.02 Spinal stenosis, cervical region; M54.14 Radiculopathy, thoracic region; N81.2 Incomplete uterovaginal prolapse
CPT/HCPCS: 36415; 80048

== ENCOUNTER 2022-11-02 14:05 | Outpatient (CLI) | payer OTHER, SELFPAY ==
[2022-11-02] VITALS (8 sets, daily range): BP systolic 106–131; BP diastolic 56–66; PULSE 58–64; RESP 12–24; O2SAT 93–99
--- NOTE | 2022-11-02 14:06 | DI.RAD.S_ITS ---
PROCEDURE: PAIN C/T INTERLAMINAR INJECT INDICATIONS: SPONDYLOSIS COMPARISON: [facility], , PAIN C/T INTERLAMINAR INJECT, 07/27/2022, 10:31. FINDINGS: Fluoroscopic spot filming was performed to verify placement of spinal needles at the bilateral T9-10 level(s), as labeled on the films. Appropriate location(s) of the needle tip(s) was confirmed by injection of iodinated contrast. IMPRESSION: Fluoroscopic support for bilateral thoracic spine interlaminar injection. Please see separate procedure note for further details. Dictated by: Stuart Shankar M.D. on 11/02/2022 at 18:23 Approved by: Stuart Shankar M.D. on 11/02/2022 at 18:24
[2022-11-02] MEDS: MIDAZOLAM 2 MG/2 ML VIAL IV (15:00)
[2022-11-02] MEDS: DEXAMETHASONE 10 MG/ML VIAL 30 MG INJ (15:04)
[2022-11-02] MEDS: IOPAMIDOL 15 ML VIAL 3 ML INJ (15:04)
[2022-11-02] MEDS: BUPIVACAINE 0.25% (PF) VIAL 2 ML INJ (15:04)
--- NOTE | 2022-11-02 15:17 | PM.PROC.IR.1 ---
Date/Time/Diagnoses Date of procedure: 11/02/22 Time of procedure: 15:17 Pre-procedure diagnosis: Thoracic stenosis with HNP Post-procedure diagnosis: same Procedure Notes Procedure: Fluoroscopic guided, contrast controlled T9/10 translaminar epidural steroid injection with conscious sedation. Indications: Xiao is referred by Dr. Mccoy for treatment of thoracic DDD/DJD with radiculopathy Physician: Issac Gaspar Total Fluoroscopy time (seconds): 21 Total sedation minutes: 15 Complications: none Procedure in detail & Post-procedure care: DESCRIPTION OF PROCEDURE Fluoroscopic guided, contrast controlled T9/10 translaminar epidural steroid injection with conscious sedation. Following review of allergy review potential side effects and complications, including, but not necessarily limited to, infection, allergic reaction, local tissue breakdown, temporary as well as permanent nerve injury, stroke, paralysis and possible , the patient indicated that they understood and agreed to proceed. An informed consent document was signed by the patient, witnessed by the nurse, and placed in the patient's chart. Additionally other treatment options including modalities, medications and physical therapy were reviewed with the patient. After review of previous anaesthesic history and IV conscious sedation the patient was deemed safe to proceed with today's procedure with IV conscious sedation as ASA class II designation. Safety time-out was performed to confirm patient ID, procedure to be performed and site of procedure. IV sedation was accomplished with a combination of 2mg of Versed administered by the RN after DO order, titrated to patient comfort during the course of the procedure while the patient remained responsive to all verbal commands In the prone position, following sterile prep and drape of the thoracic region the T9/10 translaminar space was identified fluoroscopically. The skin was anesthetized via 25 gauge 1.5inch needle with 1% lidocaine solution. At this point a 22gauge epidural needle was atraumatically introduced and advanced under fluoroscopic guidance into the region of the T9/10 translaminar space depth was confirmed on lateral view. Radiographic data, including multiple fluoroscopic views of the thoracic spine, reveals spinal needle at the T9/10 translaminar space. Lateral views then showed the placement of the needle in the epidural space. Subsequent view show contrast material flowing superiorly and inferiorly in the epidural space. No vascular or intrathecal uptake is observed. At this point using loss of resistance technique with saline and the epidural space was entered. This was confirmed followed negative aspiration and injection of approximately 1.5cc of Isovue 200 showed excellent epidural flow without vascular or intrathecal uptake. At this point, 1 cc of 1% lidocaine solution was admitted as a test dose and the patient was observed for an appropriate period of time without signs or symptoms of complications, including abdominal pain, shortness of breath, bilateral upper and lower extremity weakness, nausea and vomiting, prior to steroid injection. Subsequently, 3cc or 30mg of dexamethasone was then injected without incident. The patient tolerated the procedure well without signs of complications and subsequently was transferred to the recovery room for further monitoring. The patient was then transferred to the recovery area with their observed for an appropriate time after the injection. Patient reported a VAS score of 7 prior to the procedure and post-procedure VAS of 2.
== END 2022-11-02 15:33 | disposition home or self-care (01) ==
LOC: RAD 14:06
PROVIDERS: Family Provider Pediatrics; PCP Pediatrics; Referring Provider Physical Medicine & Rehabilitation; Visit Provider Physical Medicine & Rehabilitation
DX: M48.04 Spinal stenosis, thoracic region (principal); M51.14 Intervertebral disc disorders with radiculopathy, thoracic region; M47.24 Other spondylosis with radiculopathy, thoracic region
CPT/HCPCS: 62321; 99152; J1100; J2250; J3490

== ENCOUNTER → 2022-12-22 12:13 | Outpatient (CLI) | payer OTHER, SELFPAY ==
[2022-12-22 13:30] LABS: Appearance Urine UA CLEAR; Bilirubin Urine UA NEGATIVE (NEGATIVE); Color Urine UA YELLOW; Glucose Urine UA NEGATIVE (Negative); Ketones Urine UA NEGATIVE (NEGATIVE); Leukocyte Esterase Urine UA 3+ (NEGATIVE); Nitrite Urine UA NEGATIVE (Negative); Occult Blood Urine UA 1+ (Negative); Protein Urine UA NEGATIVE (Negative); Specific Gravity Urine UA <=1.005 (1.000-1.035); Urobilinogen Urine UA 0.2 E.U./dL (0.2)
[2022-12-22 13:40] LABS: Bacteria Urine Few (2-10); Culture Indicated Urine Specimen Cultured; RBC Urine 1-5/HPF (0-5/HPF); Squamous Epithelial Cell Urine 0-1 /HPF (0-5/HPF); WBC Urine 10-30/HPF (0-5/HPF)
== END ==
PROVIDERS: Family Provider Pediatrics; PCP Pediatrics; Referring Provider Obstetrics & Gynecology; Visit Provider Obstetrics & Gynecology
DX: R30.0 Dysuria (principal); R35.0 Frequency of micturition; R39.15 Urgency of urination
CPT/HCPCS: 81001; 87077; 87086; 87186

== ENCOUNTER → 2023-01-09 09:58 | Outpatient (CLI) | payer OTHER, SELFPAY ==
[2023-01-09 11:21] LABS: Appearance Urine UA CLEAR; Bilirubin Urine UA NEGATIVE (NEGATIVE); Color Urine UA YELLOW; Glucose Urine UA NEGATIVE (Negative); Ketones Urine UA NEGATIVE (NEGATIVE); Leukocyte Esterase Urine UA NEGATIVE (NEGATIVE); Nitrite Urine UA NEGATIVE (Negative); Occult Blood Urine UA NEGATIVE (Negative); Protein Urine UA NEGATIVE (Negative); Urobilinogen Urine UA 0.2 E.U./dL (0.2)
[2023-01-09 11:23] LABS: pH Urine UA 5.5 (4.5-8.0)
[2023-01-09 11:30] LABS: Bacteria Urine None Seen; Culture Indicated Urine Cult Not Indicated; RBC Urine None Seen (0-5/HPF); Squamous Epithelial Cell Urine 0-1 /HPF (0-5/HPF); WBC Urine None Seen (0-5/HPF)
== END ==
PROVIDERS: Family Provider Pediatrics; PCP Pediatrics; Referring Provider Obstetrics & Gynecology; Visit Provider Obstetrics & Gynecology
DX: N39.0 Urinary tract infection, site not specified (principal)
CPT/HCPCS: 81001

== ENCOUNTER → 2023-02-21 15:20 | Outpatient (CLI) | payer OTHER, SELFPAY ==
--- NOTE | 2023-02-21 15:21 | DI.MRI.S_ITS ---
PROCEDURE: MR CERVICAL SPINE WO CON INDICATIONS: ongoing pain TECHNIQUE: Noncontrast sagittal T1 spin echo and T2 fast spin echo, sagittal STIR, foraminal oblique sagittal T2 fast spin echo, and axial gradient echo or T2 fast spin echo through the cervical spine. COMPARISON: [facility], MR, MR CERVICAL SPINE WO CON, 04/07/2022, 9:35. FINDINGS: Image quality: Excellent. Alignment and Curvature: Multilevel disc disease with straightening of the usual cervical lordosis. 3 mm anterolisthesis of C3-4 is unchanged. Bone Marrow: Marrow demonstrates normal overall signal. No vertebral body height loss. Disc space narrowing at C4-5 C6-7, and C7-T1. C5-6 are fused. Spinal Cord: Visualized spinal cord has normal size and signal. No cerebellar tonsillar herniation. Paraspinous Soft Tissues: No paravertebral masses. Prevertebral soft tissues are normal in thickness. C2-C3: Uncovertebral hypertrophy on the right causes moderate right foraminal stenosis. The left foramen is patent. The central canal is patent. C3-C4: Grade 1 anterolisthesis. Diffuse disc bulge. The disc is desiccated. Severe bilateral foraminal stenosis. Severe central canal stenosis due to posterior disc osteophyte complex flattening the anterior cord, unchanged. CSF surrounding the cord is effaced. C4-C5: Loss of the disc space with endplate degenerative changes. Diffuse disc bulge with disc osteophytes and facet hypertrophy. Severe bilateral foraminal stenosis. Moderate central canal stenosis. C5-C6: Fusion at this level. The foramina have mild stenosis. The central canal is patent. C6-C7: Complete loss of the disc space. Diffuse disc bulge with disc osteophytes and facet hypertrophy. Severe bilateral foraminal stenosis. Moderate central canal stenosis. C7-T1: Disc space narrowing. Facet hypertrophy and disc osteophytes. Moderate bilateral foraminal stenosis. The central canal is patent. IMPRESSION: 1. Multilevel moderate to severe cervical spondylosis causing foraminal stenosis as detailed above. 2. Multilevel central canal stenosis. 3. Overall there is no significant change compared to the prior MRI on 04/07/2022. Dictated by: Quirino Manning M.D. on 02/21/2023 at 16:53 Approved by: Quirino Manning M.D. on 02/21/2023 at 17:04
--- NOTE | 2023-02-21 15:21 | DI.MRI.S_ITS ---
PROCEDURE: MR LUMBAR SPINE WO CON INDICATIONS: ongoing pain TECHNIQUE: Noncontrast sagittal T1 spin echo and T2 fast echo, sagittal STIR, and T2 fast spin echo through the lumbar spine. In cases with scoliosis, additional coronal T2 fast spin echo may be performed. COMPARISON: [facility], MR, MR LUMBAR SPINE W&WO CON, 09/29/2016, 14:27. [facility], MR, L-SPINE WITHOUT CONTRAST, 12/24/2013, 16:53. FINDINGS: Image quality: Hardware artifact degrades image quality.. Alignment and Curvature: Dextrocurvature of the lumbar spine and levocurvature of the lower thoracic and upper lumbar spine.. Bone Marrow: Postsurgical changes from L2 through S1 posterior spinal fixation and discectomy. Marrow is of normal overall signal. No acute vertebral body compression fractures. Spinal Cord: Conus medullaris terminates at the L1-L2 level. Visualized cord demonstrates normal signal and size. Paraspinous Soft Tissues: No paravertebral masses. T12-L1: Severe disc desiccation and height loss. Posterior disc bulge. Facet arthropathy. Mild central canal stenosis. Mild bilateral neural foraminal stenosis. L1-L2: Severe disc desiccation height loss. Small posterior disc bulge. Facet arthropathy. No significant central canal stenosis. Mild right and moderate to severe left neural foraminal stenosis is progressed. L2-L3: Postsurgical changes. No central canal stenosis. No right neural foraminal stenosis. Unable to evaluate the left neural foramina. L3-L4: Postsurgical changes. No central canal stenosis. No right neural foraminal stenosis. Unable to evaluate the left neural foramina. L4-L5: Postsurgical changes. No central canal stenosis. Facet arthropathy. No neural foraminal stenosis. L5-S1: Postoperative changes small central disc protrusion. No central canal stenosis. At least moderate left neural foraminal stenosis, evaluation is limited. [id number] right neural foraminal stenosis. IMPRESSION: 1. Multilevel degenerative changes of the lumbar spine status post L2 through S1 posterior spinal fixation and discectomy. 2. There is progression of neural foraminal stenosis at L1-L2 with moderate to severe left neural foraminal stenosis. 3. Otherwise, no significant central canal or neural foraminal stenosis as described above. Please note, several neural foramina are unable to be evaluated secondary to hardware artifact, as described above. Dictated by: Rolando Tuttle M.D. on 02/21/2023 at 16:42 Approved by: Rolando Tuttle M.D. on 02/21/2023 at 16:50
--- NOTE | 2023-02-21 16:04 | DI.MRI.S_ITS ---
PROCEDURE: MR THORACIC SPINE WO CON INDICATIONS: ongoing pain TECHNIQUE: Noncontrast sagittal T1 spine echo and T2 fast spin echo, sagittal STIR, and T2 fast spin echo through the thoracic spine. COMPARISON: [facility], MR, MR LUMBAR SPINE WO CON, 02/21/2023, 15:34. [facility], MR, MR THORACIC SPINE WO CON, 11/05/2019, 13:58. FINDINGS: Image quality: Excellent. Alignment and Curvature: There is normal bony alignment. Discs: C7-T1: No significant disc bulge. The foramina and central canal are patent. T1-2: No significant disc bulge. The foramina and central canal are patent. T2-3: No significant disc bulge. The foramina and central canal are patent. T3-4: No significant disc bulge. The foramina and central canal are patent. T5-6 through T9-10: Diffuse disc bulges which cause mild foraminal stenosis and mild central canal stenosis at these levels. T10-11: No significant disc bulge. The foramina and central canal are patent. T11-12: Worsening disc bulge with facet arthropathy causes severe bilateral foraminal stenosis. T12-L1: Diffuse disc bulge and facet hypertrophy cause moderate right foraminal stenosis. The left foramen is patent. Since the prior MRI on 11/05/2019 there has been pedicular screw and staci fixation in the lumbar spine. Otherwise no significant interval change compared to the prior MRI on 11/05/2019 in the thoracic spine. Bone Marrow: No acute vertebral body compression fractures. Multilevel degenerative disc disease with reactive endplate changes, unchanged compared to the prior MRI on 11/05/2019. Postoperative changes of pedicular screw and staci fixation in the lumbar spine. Spinal Cord: Visualized spinal cord is normal in size and signal. Paraspinous Soft Tissues: No paravertebral masses. Miscellaneous: On axial images, central canal and foramina appear widely patent at all scanned levels. IMPRESSION: 1. Multilevel degenerative disc disease of the thoracic spine as detailed above. 2. No acute abnormality. 3. No abnormal signal of the spinal cord. Dictated by: Quirino Manning M.D. on 02/21/2023 at 17:05 Approved by: Quirino Manning M.D. on 02/22/2023 at 8:37
== END ==
PROVIDERS: Family Provider Pediatrics; PCP Pediatrics; Referring Provider Pediatrics; Visit Provider Pediatrics
DX: Z98.1 Arthrodesis status (principal); M48.02 Spinal stenosis, cervical region; M47.812 Spondylosis without myelopathy or radiculopathy, cervical region; M54.12 Radiculopathy, cervical region; M54.50 Low back pain, unspecified; G89.29 Other chronic pain; M54.14 Radiculopathy, thoracic region; M41.25 Other idiopathic scoliosis, thoracolumbar region; M51.34 Other intervertebral disc degeneration, thoracic region; M54.59 Other low back pain; M48.061 Spinal stenosis, lumbar region without neurogenic claudication
CPT/HCPCS: 72141; 72146; 72148

== ENCOUNTER 2023-03-12 11:15 | Outpatient (RCR) | payer OTHER, SELFPAY ==
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
--- NOTE | 2022-12-11 14:31 | PT.OPPOC ---
Physical, Occupational & Speech Therapy At [facility] Current Diagnoses Muscle weakness (generalized) (12/11/22) Uterovaginal prolapse, unspecified (12/11/22) Other female genital prolapse (12/11/22) Visit Care Team Role Provider Type Rickie Mccoy MD Family Provider Physician Primary Care Provider Specialty: Internal Medicine Pediatrics Address: [address] [place] [address], [id number] Phone: Fax: Email: [email or web address] Provider Physician Referring Provider Specialty: WOOL SCOURER Address: [address] [place] [address], [address] Email: [email or web address] Plan Of Care PT-OP-T Assessment and Plan Start: 10/20/22 19:29 Freq: Status: Active Protocol: Document 12/11/22 13:21 LRN (Rec: 12/11/22 14:29 LRN [id number]) Physical Therapy Assessment Rehab Potential Rehabilitation Potential Good Evaluation Complexity Number of Personal Factors/Comorbidities 3 or More Number of Body Systems Impaired 4 or More Clinical Presentation at Evaluation Evolving Impairments Impairments Gait,Pain,Posture,ROM,Strength ,Transfers Goals Two Impairment PF weakness resuting in uterovaginal and cystocele prolapse Short Term Goal (STG) Discuss & educate pt in proper squatting and lifting, sit to stand, and proper transfers to lessen core abdominal pressure, using breathwork and PF contraction for proper pistoning effect. 11/10/22: Pt educated in proper body mechanics for squatting/ lifting, daily activities, transfers to lessen core abdominal pressure, using breathwork and PF contraction for proper pistoning effect. STG Duration 11/25/22 (12/11/22: MET GOAL ) Transit Planner Goal (LTG) Improve PF strength of Long holds for 10 secs, and Quick Flicks of 10 reps in lateral barreto and anterior PF equal to posterior PF strength to reduce abdominal pain onset. LTG Duration 02/09/23 One Impairment Pt lacks an independent self care HEP. Short Term Goal (STG) Pt educated in proper transfers to lessen core abdominal pressure. 11/10/22: Pt educated in proper transfer to lessen core pressure with handout issued. STG Duration 11/25/22 (11/10/22: MET GOAL) Transit Planner Goal (LTG) Pt will be independent in a self care HEP for PF strengthening and trunk/hip mobility exercises. 11/10/22: HEP: LE roll in/out with PF/breath LTG Duration 02/09/23 progressed 11/10/22 Assessment Summary Assessment Pt is health female with urethrocele, cystocele and drop of uterus. Pelvic obliquity due to short L leg ( valgus of knee) causing weakness of R PF anter/lateral . Focus has been on pt education and PF strengthening . Pt has been doing ex's but had poor recall of core pressure management. Improved understanding of core pressure management after education and transfer training. Progression has been slow due to limited therapy visit Physical Therapy Plan Frequency and Duration Frequency of Treatment 1x/Week Duration of treatment (weeks) 8 Plan of Care Start Date 12/11/22 Plan of Care End Date 02/09/23 Therapeutic Interventions Therapeutic Interventions Gait Training,Home Exercise Program,Manual Therapy, Neuromuscular Re-education, Self-Care/Home Management,Soft Tissue Mobilization,Taping, Therapeutic Activities, Therapeutic Exercises Modalities Cold Pack/Ice Massage,Hot Packs Next Visit Focus/Plan Next Note Type Treatment Note Next Visit Plan Pt might have 2 more PT visits , check on pt limit of coverage and discuss with pt POC. Progress PF strengthening on R side, recheck in 2 weeks. Review Kegel without use of substitute muscles. Review LE roll in/out/DB/PF ex . Next: PF/core/hip strengthening, improve hip mobility, improve abdominal soft tissue (bladder) mobility . Biofeedback/PF awareness Estim with vaginal sensor if no pessary. Assess abdominal soft tissue ( bladder) mobility, and Manual therapy: improve abdominal soft tissue mobility as needed . Therapeutic Exercises ( strength of PF, & John hip Ext ROM, strength of hip ext/AB), HEP progression. Plan of Care Dates Plan of Care Start Date 12/11/22 Plan of Care End Date 02/09/23 Electronically Signed by: Bhavana Hardy, PT 12/11/22 9527 If you are in agreement with this Plan of Care, please return a signed and dated copy. I have reviewed this Plan of Care and certify that the skilled therapy services above are required to meet the patient?s needs. Physician Signature Date Printed Name and Credentials Clinical Instructor Signature Printed Name and Credentials
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
--- NOTE | 2023-04-12 17:57 | PT-OP ANOTE ---
Per phone conversation the pt states her urologist found her to be improved with her prolapse improved to a level 2 and will be having a bladder study done. States the last time her pessary was removed there was bleeding, so that is being looked at. The pt is agreeable to discharge from therapy because she is unable to come back for therapy due to other medical appointments. If she needs further therapy she understands she will need a new referral to return. Pt is being discharged from physical therapy.
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
== END 2023-04-16 13:56 | disposition home or self-care (01) ==
LOC: PHYS 11:15
PROVIDERS: Family Provider Pediatrics; PCP Pediatrics; Referring Provider Specialist; Visit Provider Specialist
DX: N81.89 Other female genital prolapse (principal); N81.4 Uterovaginal prolapse, unspecified; M62.81 Muscle weakness (generalized)
CPT/HCPCS: 97110; 97112; 97162; 97535

== ENCOUNTER 2023-04-03 15:04 | Outpatient (CLI) | payer OTHER, SELFPAY ==
[2023-04-03] VITALS (9 sets, daily range): BP systolic 111–142; BP diastolic 56–79; PULSE 63–75; RESP 15–22; TEMP 36.4; O2SAT 96–99
--- NOTE | 2023-04-03 16:00 | DI.RAD.S_ITS ---
PROCEDURE: PAIN L INTERLAMINAR/CAUDAL INJ INDICATIONS: SCOLIOSIS COMPARISON: [facility], , PAIN L INTERLAMINAR/CAUDAL INJ, 07/21/2021, 9:29. FINDINGS: A caudally placed catheter is seen within the sacral canal. The position of the tip of the catheter was confirmed with injection of a small amount of iodinated contrast. IMPRESSION: Intraprocedural examination within normal limits. Dictated by: Chuckie Vance M.D. on 04/03/2023 at 17:47 Approved by: Chuckie Vance M.D. on 04/03/2023 at 17:48
[2023-04-03] MEDS: DEXAMETHASONE 10 MG/ML VIAL INJ (16:23)
[2023-04-03] MEDS: MIDAZOLAM 2 MG/2 ML VIAL 1 MG IV ×2 (16:23→16:26)
[2023-04-03] MEDS: BETAMETHASONE 30 MG/5 ML MDV 12 MG INJ (16:26)
[2023-04-03] MEDS: BUPIVACAINE 0.25% (PF) VIAL 2 ML INJ (16:27)
[2023-04-03] MEDS: iopamidoL 15 ML VIAL 3 ML INJ (16:27)
--- NOTE | 2023-04-03 16:42 | PM.PROC.IR.1 ---
Date/Time/Diagnoses Date of procedure: 04/03/23 Time of procedure: 16:42 Pre-procedure diagnosis: 1. MULTILEVEL SPINAL STENOSIS 2. POST FUSION SYNDROME Post-procedure diagnosis: same Procedure Notes Procedure: 1. FLUOROSCOPICALLY GUIDED CONTRAST CONTROLLED CAUDAL EPIDURAL STEROID INJECTION, Indications: Xiao is referred by Dr. Mccoy for treatment of Multilevel Stenosis Physician: Issac Gaspar Total Fluoroscopy time (seconds): 8 Total sedation minutes: 10 Complications: none Procedure in detail & Post-procedure care: FINDINGS Multilevel Stenosis S/p Lami/Fusion Syndrome DESCRIPTION OF PROCEDURE Fluoroscopically guided, contrast controlled caudal epidural steroid injection with Conscious Sedation Following review of allergy and review of potential side effects and complications, including but not necessarily limited to infection, allergic reaction, local tissue breakdown, temporary or permanent nerve injury, stroke, paralysis, and possible , the patient indicated that they understood and agreed to proceed. An informed consent document was signed by the patient, witnessed by a nurse, and placed in the patient's chart. Additionally, other treatment options including medications, modalities, and physical therapy were reviewed with the patient. After review of previous anaesthesic history and IV conscious sedation the patient was deemed safe to proceed with today?s procedure with IV conscious sedation as ASA class II designation. Safety time-out was performed to confirm patient ID, procedure to be performed and site of procedure. IV sedation was accomplished with a combination of 2mg of Versed administered by the RN after DO order, titrated to patient comfort during the course of the procedure while the patient remained responsive to all verbal commands In the prone position, following sterile prep and drape of the lumbar region, the sacral hiatus was identified fluoroscopically. The skin was anesthetized via a 25-gauge, 1.5-inch needle with approximately 2cc of 1% lidocaine solution. At this point, a 25-gauge, 3inch needle was atraumatically introduced and advanced under fluoroscopic guidance to the corresponding sacral hiatus and entering the sacral canal. Following negative aspiration, injection of approximately 0.3cc of Isovue 300 confirmed interarticular placement without vascular uptake. Radiological data, including multiple fluoroscopic views of the lumbosacral spine, reveal a spinal needle in the sacral canal through the sacral hiatus. Subsequent views show flow of contrast material superiorly and inferiorly in the sacral canal without vascular or intrathecal uptake. At this point, a total of 5cc including 2cc or 12mg of betamethasone and 3cc of 1% lidocaine solution was injected without complication. The patient tolerated the procedure well without signs or symptoms of complications prior to transfer to the recovery area continued monitoring without incident. The patient was then transferred to the recovery area where they were observed for an appropriate period of time after the injection. The patient reported a VAS score of 10 prior to the procedure and a post-procedure VAS of 2. POST OP INSTRUCTIONS The patient was provided a Pain Log to continue to record their response to the target-specific procedure prior to their follow-up visit with the referring physician. Additionally, specific post-injection care instructions and a contact number to our office were provided if concerns arise regarding possible complications associated with the procedure are suspected.
--- NOTE | 2023-04-03 19:35 | PC.NURSE ---
patient was numb from her buttocks to her toes bilaterally on arrival to the recovery area. she was monitored continuously and her numbness was reassessed frequently. She lost bowel and bladder control at approximately 1800 and then again about [address] Gaspar was called to no avail. A message was left to return our call. At approximately 1900 she began to gain feeling back in her toes and buttocks and was able to stand with minimal assistance. We then took her to the bathroom where she was able to completely empty it and also had control of her flow. SHe was then brought back in to [facility] and she stood and took steps on her own and was able to walk back to the recliner with stand by assist x 2. At 1925 she was stood up again with stand by assist and it was determined that she had returned to her pre-procedure mobility. Dr. Gaspar was then called again at that time with no answer. A message was left with him again and we are awaiting his return call. Patient was advised to have her son and or stand by her when transferring/ambulating from her vehicle to her home. She stated her understanding and compliance to those instructions.
== END 2023-04-03 19:38 | disposition home or self-care (01) ==
PROVIDERS: Family Provider Pediatrics; PCP Student in an Organized Health Care Education/Training Program; Referring Provider Physical Medicine & Rehabilitation; Visit Provider Physical Medicine & Rehabilitation
DX: M41.9 Scoliosis, unspecified (principal); Z98.1 Arthrodesis status; M48.061 Spinal stenosis, lumbar region without neurogenic claudication
CPT/HCPCS: 62323; 99152; J0702; J1100; J2250; J3490

== ENCOUNTER → 2023-04-20 16:54 | Outpatient (CLI) | payer OTHER, SELFPAY ==
--- NOTE | 2023-04-20 | DI.US.S_ITS ---
PROCEDURE: US PELVIC COMPLETE INDICATIONS: Abnormal uterine and vaginal bleeding TECHNIQUE: Real-time scanning was performed of the pelvic organs, with image documentation. Additional endovaginal scanning was necessary due to incomplete visualization of the adnexal and endometrial structures by transabdominal scanning. COMPARISON: [facility], US, US PELVIC COMPLETE, 12/01/2021, 15:21. FINDINGS: Uterus: Uterus is retroverted and normal in size at 7.7 x 5.0 x 4.6 cm. The myometrium is heterogeneous. The endometrium measures 8 mm combined thickness. A midline submucosal fibroid measures 1.1 x 1.0 x 1.2 cm, (previously 0.9 cm). A midline posterior intramural fibroid measures 3.0 x 3.0 x 2.8 cm, not significantly changed. Additional previously seen 30 uterine fibroid is not well visualized due to uterine positioning. Ovaries: The right ovary measures 2.5 x 1.4 x 1.1 cm, with a calculated ovarian volume of 2.0 cc. The left ovary measures 3.0 x 1.2 x 1.3 cm, with a calculated ovarian volume of 2.5 cc. The ovaries have a normal sonographic appearance. Less than 12 follicles can be seen in each ovary. No adnexal masses are seen. Other: No pathologic free abdominal or pelvic fluid. Postvoid residual bladder volume is approximately 221 mL. IMPRESSION: 1. Heterogeneous appearance of the uterus due to multiple uterine fibroids, which do not appear significantly changed when compared to the ultrasound from 12/01/2021. At least 1 of the fibroids has a submucosal component. 2. Endometrium is mildly distorted by fibroids, but appears to measure up to 8 mm in thickness, which is considered abnormal in the setting of postmenopausal bleeding. Recommend gynecology follow-up/referral for possible endometrial biopsy. 3. Postvoid residual bladder volume of 221 mL. Approved by: Braden Monroe M.D. on 04/20/2023 at 22:13
== END ==
PROVIDERS: Family Provider Pediatrics; PCP Student in an Organized Health Care Education/Training Program; Referring Provider Urology; Visit Provider Urology
DX: N93.9 Abnormal uterine and vaginal bleeding, unspecified (principal); D25.1 Intramural leiomyoma of uterus; D25.0 Submucous leiomyoma of uterus
CPT/HCPCS: 76830; 76856

== ENCOUNTER → 2023-07-03 13:36 | Outpatient (CLI) | payer OTHER, SELFPAY ==
[2023-07-03 19:31] LABS: Appearance Urine UA CLEAR; Bilirubin Urine UA NEGATIVE (NEGATIVE); Color Urine UA YELLOW; Glucose Urine UA NEGATIVE (Negative); Ketones Urine UA NEGATIVE (NEGATIVE); Leukocyte Esterase Urine UA NEGATIVE (NEGATIVE); Nitrite Urine UA NEGATIVE (Negative); Occult Blood Urine UA NEGATIVE (Negative); Protein Urine UA NEGATIVE (Negative); Urobilinogen Urine UA 0.2 E.U./dL (0.2)
[2023-07-03 19:32] LABS: pH Urine UA 5.5 (4.5-8.0)
[2023-07-03 19:43] LABS: Bacteria Urine None Seen; Culture Indicated Urine Cult Not Indicated; RBC Urine None Seen (0-5/HPF); Squamous Epithelial Cell Urine None Seen (0-5/HPF); Urine Volume 10mL (spun); WBC Urine None Seen (0-5/HPF)
== END ==
PROVIDERS: Family Provider Pediatrics; PCP Student in an Organized Health Care Education/Training Program; Visit Provider Family Medicine
DX: N39.0 Urinary tract infection, site not specified (principal)
CPT/HCPCS: 81001

== ENCOUNTER → 2023-07-11 13:10 | Outpatient (CLI) | payer OTHER, SELFPAY ==
--- NOTE | 2023-07-11 13:13 | DI.MG.S_ITS ---
BILATERAL DIGITAL SCREENING MAMMOGRAM 3D/2D WITH CAD: 07/11/2023 CLINICAL: Routine screening. Family history of breast cancer. Comparison is made to exams dated: 06/27/2022 mammogram - , 06/22/2021 mammogram, 11/04/2020 mammogram, and 06/28/2020 mammogram - [facility]. Both breasts are heterogeneously dense, which may obscure small masses (category c / 51-75% glandular tissue). Current study was also evaluated with a Computer Aided Detection (CAD) system. There are benign calcifications in both breasts. There also are benign post operative findings in both breasts. No significant masses, calcifications, or other findings are seen in either breast. There has been no significant interval change. IMPRESSION: BENIGN There is no mammographic evidence of malignancy. A 1 year screening mammogram is recommended. Based on the Tyrer Cuzick model (a risk assessment model) the patient's lifetime risk is 16.0% and her 10 year risk is 7.1%. According to the ACR, ACS, and NCCN guidelines, an annual breast MRI exam along with mammogram is recommended if the patient's lifetime risk is 20% or greater. This exam was interpreted at Station ID: [id number]. NOTE: For mammograms, a report in lay terms will be sent to the patient. Approximately 15% of breast malignancies will not be visualized mammographically. In the management of a palpable breast mass, a negative mammogram must not discourage biopsy of a clinically suspicious lesion. Electronically Signed By: Stuart crane/delfina:07/11/2023 16:34:09 copy to: ELLIOTT PADILLA letter sent: Normal Exam ACR BI-RADS Category 2: Benign Finding(s) [id number]
== END ==
PROVIDERS: Family Provider Pediatrics; PCP Student in an Organized Health Care Education/Training Program; Referring Provider Student in an Organized Health Care Education/Training Program; Visit Provider Student in an Organized Health Care Education/Training Program
DX: Z12.31 Encounter for screening mammogram for malignant neoplasm of breast (principal); Z80.3 Family history of malignant neoplasm of breast; R92.333 Mammographic heterogeneous density, bilateral breasts
CPT/HCPCS: 77063; 77067

== ENCOUNTER → 2023-10-29 13:06 | Outpatient (CLI) | payer OTHER, SELFPAY ==
[2023-10-29 13:40] LABS: Add Manual Diff / Slide Review NO; Basophils Absolute Auto 0 /uL (0-100); Basophils Percent Auto 0.4 % (0-2); Eosinophils Absolute Auto 100 /uL (0-450); Eosinophils Percent Auto 1.6 % (2-4); Hematocrit 38.7 % (36-46); Hemoglobin 13.1 g/dL (12.0-16.0); Lymphocytes Absolute Auto 1300 /uL (1100-4500); Lymphocytes Percent Auto 28.3 % (25-40); Mean Corpuscular HGB Conc 33.9 % (30-36); Mean Corpuscular Hemoglobin 31.8 PG (26-34); Mean Corpuscular Volume 93.8 fL (80-100); Monocytes Absolute Auto 600 /uL (0-900); Monocytes Percent Auto 13.4 % (3-14); Neutrophils Absolute Auto 2500 /uL (1500-7000); Neutrophils Percent Auto 56.3 % (50-75); Platelet Count 181 X10^3/uL (150-400); Red Blood Cell Count 4.13 X10^6/uL (4.0-5.2); Red Cell Distribution Width 12.5 % (11.6-14.8); White Blood Cell Count 4.5 X10^3/uL (4.5-11.0)
[2023-10-29 14:01] LABS: HEMOLYSIS < 15 (0-50); Iron 49 ug/dL (37-170)
[2023-10-29 14:12] LABS: Alanine Aminotransferase 23 IU/L (<35); Albumin 4.4 g/dL (3.5-5.0); Albumin Globulin Ratio 1.6 (1.0-2.8); Alkaline Phosphatase 75 U/L (38-126); Aspartate Aminotransferase 27 IU/L (14-36); BUN Creatinine Ratio 37.1 (6-22); Bilirubin Total 0.3 mg/dL (0.2-1.3); Blood Urea Nitrogen 23 mg/dL (7-17); Calcium 9.1 mg/dL (8.4-10.2); Carbon Dioxide 28 mmol/L (22-32); Chloride 104 mmol/L (98-107); Estimated Glomerular Filt Rate > 60 mL/min (>60); Globulin 2.8 g/dL (1.7-4.1); Glucose 104 mg/dL (80-110); HEMOLYSIS < 15 (0-50); Percent Iron Saturation 17 % (15-50); Potassium 4.1 mmol/L (3.4-5.1); Sodium 138 mmol/L (137-145); Total Iron Binding Capacity 286 ug/dL (265-497); Total Protein 7.2 g/dL (6.3-8.2); Transferrin 226 mg/dL (206-381)
[2023-10-29 14:33] LABS: TSH w/ Reflex to FT4 0.65 uIU/mL (0.47-4.68)
[2023-10-29 14:45] LABS: Ferritin 94 ng/mL (11-264)
[2023-10-30 18:41] LABS: Anti Thyroglobulin Antibody <1.0 IU/mL (0.0-0.9); Thyroid Peroxidase Antibodies 14 IU/mL (0-34)
== END ==
LOC: LAB 13:07
PROVIDERS: Family Provider Pediatrics; PCP Student in an Organized Health Care Education/Training Program; Referring Provider Student in an Organized Health Care Education/Training Program; Visit Provider Student in an Organized Health Care Education/Training Program
DX: R53.83 Other fatigue (principal); Z86.2 Personal history of diseases of the blood and blood-forming organs and certain disorders involving the immune mechanism
CPT/HCPCS: 36415; 80053; 82728; 83540; 83550; 84443; 85025; 86376; 86800

== ENCOUNTER → 2023-12-05 12:35 | Outpatient (CLI) | payer OTHER, SELFPAY | PROVIDERS: Family Provider Pediatrics; PCP Student in an Organized Health Care Education/Training Program; Visit Provider Nurse Practitioner Family | DX: R30.0 Dysuria (principal) | CPT/HCPCS: 87086 ==

== ENCOUNTER 2024-01-21 19:39 | Emergency (ER) | payer OTHER, SELFPAY ==
[2024-01-21 19:41] VITALS: BP 154/75; PULSE 83; RESP 18; TEMP 36.8; O2SAT 99; BMI 25.4
[2024-01-21 19:48] VITALS: BMI 25.4
--- NOTE | 2024-01-21 20:26 | ED_ITS ---
HPI - General Adult General Chief complaint: Upper Respiratory Symptoms Stated complaint: Lethargic, Head Aches, Sinus Infection Time Seen by Provider: 01/21/24 19:56 Source: patient Mode of arrival: Ambulatory History of Present Illness HPI narrative: Patient is a 63 old female who here for evaluation of multiple symptoms to include headaches, a draining cyst in the roof mouth, feeling like she was a sinus infection, feeling like when she stands up fluid is running out of her, concerns for infection, concerns for a TIA back around labor day. All of her symptoms have been present for the past several weeks. She states she has a cyst on the roof of her mouth that drains occasionally. She stated that she saw her dentist. Her dentist told her that it was not related to her teeth that she needed no see an oral surgeon. She has not followed up with Oral surgery. She also states she was had she feels like has a sinus infection. She completed a course of antibiotics back in November but states her symptoms have not gotten any better. She has not taken anything for the symptoms since then. She states she was having muscle tension in the back of her head. No trauma. She stated that several weeks ago she had an episode where she felt lightheaded and potentially some vision changes in her left eye but all those symptoms have since resolved. Related Data Home Medications Medication Instructions Recorded Confirmed magnesium oxide 400 mg (241.3 mg 400 mg PO QPM ##0 01/21/16 01/01/24 magnesium) tablet calcium carbonate 1 tab PO DIRECTED ##0 11/29/16 01/01/24 vitamin B complex (B 1 tab PO DAILY ##0 11/29/16 01/01/24 Complex-Vitamin B12 tablet) cholecalciferol (vitamin D3) 125 5,000 unit PO DAILY 11/12/18 01/01/24 mcg (5,000 unit) capsule ipratropium bromide 42 mcg (0.06 2 spray intranasal ONCE 12/26/21 01/01/24 %) nasal spray cyclosporine 0.05 % eye drops in a 1 drp EYE-BOTH DAILY 04/26/22 01/01/24 dropperette (Restasis) multivitamin 1 tab PO DAILY 10/18/22 01/01/24 turmeric root extract 500 mg 500 mg PO DAILY 10/18/22 01/01/24 capsule estradiol 0.5 mg tablet 0.5 mg PO DAILY 09/26/23 01/01/24 Previous Rx's Medication Instructions Recorded bimatoprost 0.03 % drops with 1 applic topical BEDTIME #3 mL 02/23/21 applicator, eyelash base (Latisse) Disabled Parking Permit #1 ea 12/26/21 phenazopyridine 100 mg tablet 100 mg PO TID 6 doses #6 tabs 12/21/22 (Pyridium) lisinopril 10 mg tablet 10 mg PO DAILY #90 tabs 03/08/23 duloxetine 30 mg capsule,delayed 30 mg PO DAILY #60 caps 09/26/23 release (Cymbalta) trazodone 50 mg tablet 50 mg PO DAILY #90 tabs 10/03/23 progesterone micronized 200 mg 200 mg PO BID #60 caps 10/19/23 capsule phentermine 37.5 mg tablet 37.5 mg PO DAILY #30 tabs 10/30/23 tramadol 50 mg tablet 100 mg (2 x 50 mg) PO TID PRN 10/30/23 pain, severe #180 tabs estradiol 10 mcg vaginal tablet 10 mcg vaginal 3XW #36 tabs 11/19/23 (Vagifem) diclofenac sodium 3 % topical gel 1 applic topical BID #100 grams 12/14/23 doxycycline hyclate 100 mg capsule 100 mg PO BID #14 caps 12/25/23 oxycodone 5 mg tablet 5 mg PO Q6H PRN pain #120 tabs 01/01/24 zolpidem 10 mg tablet 10 mg PO BEDTIME PRN insomnia #30 01/01/24 tabs losartan 25 mg tablet 25 mg PO DAILY #30 tabs 01/17/24 Allergies Allergy/AdvReac Type Severity Reaction Status Date / Time latex [LATEX] Allergy Unknown MOUTH Verified 01/01/24 13:32 BECAME RAW gabapentin [GABAPENTIN] AdvReac Mild cognitive Verified 01/01/24 13:32 fog related to dose metoprolol [METOPROLOL] AdvReac Mild abd Verified 01/01/24 13:32 distress and myalgias amoxicillin [AMOXICILLIN] AdvReac Unknown Pt claims Verified 01/01/24 13:32 caused her throat to close up ciprofloxacin [From Cipro] AdvReac Intense Verified 01/01/24 13:32 fatigue and nausea Review of Systems Review of Systems Narrative: See HPI Patient History Medical History Left knee DJD Facet arthropathy, cervical Cervical stenosis of spinal canal COVID-19 Thoracic radiculopathy Environmental allergies Lateral meniscus tear Hormone replacement therapy Osteoarthritis 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 ANNABELLA (stress urinary incontinence, female) Hypertension ADHD (attention deficit hyperactivity disorder) Anxiety Impacted foreign body in esophagus Surgical History S/P lumbar spinal fusion Status post lumbar and lumbosacral fusion by anterior technique History of abdominoplasty (2010) History of abdominoplasty (2003) History of stress incontinence procedure using tension free vaginal tape (08/16/09) Status post laminectomy (2015) Status post colonoscopy (03/01/12) Family History Father Alcoholism Grandmother Breast cancer Mother Coronary artery disease Family/Other Breast cancer Social History Smoking Status: Never smoker Smoking Status: Never smoker alcohol intake frequency: holidays/special occasions only Substance Use Type: does not use Exam Initial Vital Signs Initial Vital Signs: Vital Signs Temperature 98.2 F 01/21/24 19:41 Pulse Rate 83 01/21/24 19:41 Respiratory Rate 18 01/21/24 19:41 Blood Pressure 154/75 H 01/21/24 19:41 Pulse Oximetry 99 01/21/24 19:41 Oxygen Delivery Method Room Air 01/21/24 19:41 Const General: cooperative, comfortable and No ill appearing [facility] Head: normal to inspection and normocephalic Mouth: lip normal, tongue normal, moist mucous membranes and other (Small lump center line hard palate without surrounding erythema) Teeth and gingiva: dentition normal Resp Effort & Inspection: normal respiratory effort Cardio Rate: regular rate Skin General: no rashes or lesions noted Neuro General: patient alert, patient awake, patient oriented x3, gait normal and moves all extremities Extrem General: normal to inspection Course Orders Ordered: ED Orders 01/21/24 20:07 Covid-19 + FLU A/B + RSV - PCR Stat Vital Signs Vital signs: Vital Signs - 8 hr 01/21/24 19:41 Temperature 98.2 F Pulse Rate 83 Respiratory Rate 18 Blood Pressure 154/75 H Pulse Oximetry 99 Oxygen Delivery Method Room Air Medical Decision Making Medical Records Medical records reviewed: Yes I reviewed the patient's medical records. Lab Data Lab results reviewed: Yes I reviewed the patient's lab results. Labs: Lab Results 01/21/24 Range/Units 20:07 SARS-CoV-2 (PCR) Negative (Negative) Influenza A (RT-PCR) Flu a negative (NEGATIVE) Influenza B (RT-PCR) Flu b negative (NEGATIVE) RSV (PCR) Negative (Negative) MDM Narrative Medical decision making narrative: She does have a small lump on the hard palate that does not appear to be infected. I did advise that she follow-up with oral surgeon especially since this lump does seem to drain occasionally. There is no drainage today. No emergent condition noted although she does need follow-up for this. She has been treated for a sinus infection. Low suspicion that this is bacterial in origin. No indication for antibiotics. Discussed the use of decongestants and that she may need to follow-up with ENT if her symptoms continue. Offered contact information and she states she already has the information needed to follow-up with the ENT. I have low suspicion for CVA, TIA, meningitis. All of her symptoms have been present for several weeks. She will need follow-up with her primary care doctor. Discharge Plan Departure Patient Disposition: Home Clinical Impression: Headache, Sinus congestion Instructions: DI for Sinusitis Activity Restrictions/Additional Instructions: Recommend that you continue to take all of your medications as directed. The symptoms that you were having today due need follow-up with your primary care doctor. You also need to see an oral surgeon about the lesion that is in your mouth. I also recommend that you discussed with your primary doctor about a referral to see ear nose and throat. You can try other [id number] decongestants such as Claritin or Zyrtec. Also recommend nasal sprays such as Flonase/Nasonex. All of these can be purchased [id number]. Return to the emergency department for new symptoms. Prescriptions: No Action lisinopril 10 mg tablet 10 mg PO DAILY Qty: 90 3RF Hold Instructions: cough zolpidem 10 mg tablet 10 mg PO BEDTIME PRN (Reason: insomnia) Qty: 30 5RF oxycodone 5 mg tablet 5 mg PO Q6H PRN (Reason: pain) Qty: 120 0RF phentermine 37.5 mg tablet 37.5 mg PO DAILY Qty: 30 5RF Rx Instructions: must administer 30 minutes before or 1-2 hours after breakfast tramadol 50 mg tablet 100 mg PO TID PRN (Reason: pain, severe) Qty: 180 5RF magnesium oxide 400 MG tablet 400 mg PO QPM Qty: 0 calcium carbonate 200 MG tablet,chewable 1 tab PO DIRECTED Qty: 0 vitamin B complex [B Complex-Vitamin B12] 1 EACH tablet 1 tab PO DAILY Qty: 0 bimatoprost [Latisse] 0.03 % drops with applicator 1 applic Topical BEDTIME Qty: 3 2RF phenazopyridine [Pyridium] 100 mg tablet 100 mg PO TID Qty: 6 0RF trazodone 50 mg tablet 50 mg PO DAILY Qty: 90 3RF progesterone micronized 200 mg capsule 200 mg PO BID Qty: 60 6RF estradiol [Vagifem] 10 mcg tablet 10 mcg vaginal 3XW Qty: 36 3RF diclofenac sodium 3 % gel 1 applic topical BID Qty: 100 0RF doxycycline hyclate 100 mg capsule 100 mg PO BID Qty: 14 0RF losartan 25 mg tablet 25 mg PO DAILY Qty: 30 0RF multivitamin Tablet 1 tab PO DAILY turmeric root extract 500 mg capsule 500 mg PO DAILY cholecalciferol (vitamin D3) 5,000 unit capsule 5,000 unit PO DAILY estradiol 0.5 mg tablet 0.5 mg PO DAILY duloxetine [Cymbalta] 30 mg capsule,delayed release(DR/EC) 30 mg PO DAILY MDD 2 Qty: 60 3RF ipratropium bromide 42 mcg (0.06 %) spray,non-aerosol 2 spray intranasal ONCE (DME) Disabled Parking Permit See Rx Instructions .ROUTE .MEDSUPPLY Qty: 1 0RF Rx Instructions: Patient qualifies for disabled parking as per the attached form. cyclosporine [Restasis] 0.05 % dropperette 1 drp EYE-BOTH DAILY Referrals: Rosi Gtz MD [Primary Care Provider] - Stand Alone Forms: Patient Portal/API
[2024-01-21 20:50] LABS: Influenza A - CEPHEID Flu A NEGATIVE (NEGATIVE); Influenza B - CEPHEID Flu B NEGATIVE (NEGATIVE); Respiratory Syncytial Virus Negative (Negative)
[2024-01-21 20:58] LABS: COVID-19 CEPHEID 4-PLEX PCR Negative (Negative)
== END 2024-01-21 21:23 | disposition home or self-care (01) ==
PROVIDERS: Emergency Provider Emergency Medicine; Family Provider Pediatrics; PCP Student in an Organized Health Care Education/Training Program
DX: R51.9 Headache, unspecified (principal); R09.81 Nasal congestion; Z11.52 Encounter for screening for COVID-19
CPT/HCPCS: 0241U; 99281; 99282

== ENCOUNTER → 2024-02-07 09:20 | Outpatient (CLI) | payer OTHER, SELFPAY ==
--- NOTE | 2024-02-07 09:20 | DI.MRI.S_ITS ---
PROCEDURE: MR HEAD/BRAIN WO/W CON INDICATIONS: Chronic Headaches TECHNIQUE: Noncontrast axial T1 spin echo, axial T2 fast spin echo, sagittal and axial FLAIR, coronal T2 fast spin echo, axial gradient echo, axial diffusion and ADC through the brain. After the administration of contrast, axial and coronal and sagittal T1 spin echo with fat saturation through the brain. COMPARISON: None. FINDINGS: Image quality: Diagnostic, with note made of motion artifact. CSF spaces: Basal cisterns are patent. No extra-axial fluid collections. Ventricles are normal in size and shape. Brain: No midline shift. No intracranial bleeds or masses. No abnormal intracranial enhancement. There is cerebral volume loss for age. There is periventricular white matter chronic small vessel ischemic change. The brainstem appears normal. Diffusion-weighted images demonstrate no acute infarct. No chronic ischemic insults. Normal intravascular flow voids are present. Skull and face: Calvarial marrow is normal in signal. Orbits appear normal. Sinuses: Sinuses and mastoids appear clear. IMPRESSION: No imaging explanation is found for this patient's presenting symptoms. No masses or abnormal enhancement can be seen. Dictated by: Chuckie Vance M.D. on 02/07/2024 at 9:17 Approved by: Chuckie Vance M.D. on 02/07/2024 at 9:18
== END ==
LOC: MRI 09:20
PROVIDERS: Family Provider Pediatrics; PCP Student in an Organized Health Care Education/Training Program; Referring Provider Student in an Organized Health Care Education/Training Program; Visit Provider Student in an Organized Health Care Education/Training Program
DX: R51.9 Headache, unspecified (principal); G89.29 Other chronic pain
CPT/HCPCS: 70553; A9579

== ENCOUNTER 2024-02-19 09:08 | Outpatient (CLI) | payer OTHER, SELFPAY ==
[2024-02-19] VITALS (9 sets, daily range): BP systolic 109–138; BP diastolic 61–74; PULSE 70–82; RESP 15–20; TEMP 35.9; O2SAT 95–100
--- NOTE | 2024-02-19 09:30 | DI.RAD.S_ITS ---
PROCEDURE: PAIN C/T INTERLAMINAR INJECT INDICATIONS: C7-T1 translaminar JOVANNY COMPARISON: [facility], , PAIN C/T INTERLAMINAR INJECT, 11/02/2022, 15:03. FINDINGS: Fluoroscopic spot filming was performed to verify placement of spinal needle at the C7-T1 level, as labeled on the films. Appropriate location of the needle tip was confirmed by injection of iodinated contrast. IMPRESSION: Intraprocedural examination demonstrates appropriate needle positioning. Approved by: Braden Monroe M.D. on 02/19/2024 at 21:38
[2024-02-19] MEDS: MIDAZOLAM 2 MG/2 ML VIAL IV (09:43)
[2024-02-19] MEDS: DEXAMETHASONE 10 MG/ML VIAL 20 MG INJ (09:47)
[2024-02-19] MEDS: iopamidoL 15 ML VIAL 3 ML INJ (09:47)
[2024-02-19] MEDS: BUPIVACAINE 0.25% (PF) VIAL 2 ML INJ (09:48)
--- NOTE | 2024-02-19 10:01 | P.PCN_ITS ---
Date/Time/Diagnoses Date of procedure: 02/19/24 Time of procedure: 10:02 Pre-procedure diagnosis: 1. CERVICAL STENOSIS, 2. CERVICAL HNP WITH UPPER EXTREMITY RADICULAR FEATURES Procedure Notes Procedure: FLUORSCOPICALLY GUIDED CONTRAST CONTROLLED INTERLAMINAR EPIDURAL STEROID INJECTION - C7/T1 TL JOVANNY Indications: Xioa is referred by Dr. Gtz for treatment of Cervical Stenosis. Physician: Issac Gaspar Total Fluoroscopy time (seconds): 23 Total sedation minutes: 15 Complications: none Procedure in detail & Post-procedure care: DESCRIPTION OF PROCEDURE Following review of allergy and review of potential side effects and complications, including, but not necessarily limited to, infection, allergic reaction, local tissue breakdown, temporary as well as permanent nerve injury, stroke, paralysis, and possible , the patient indicated that patient understood and agreed to proceed. An informed consent document was signed by the patient, witnessed by a nurse, and placed in the patient's chart. Additionally, other treatment options including modalities, medications, and physical therapy were reviewed with the patient. After review of previous anaesthesic history and IV conscious sedation the patient was deemed safe to proceed with todays procedure with IV conscious sedation as ASA class II designation. Safety time-out was performed to confirm patient ID, procedure to be performed and site of procedure. IV sedation was accomplished with a combination of 2mg of Versed administered by the RN after DO order, titrated to patient comfort during the course of the procedure while the patient remained responsive to all verbal commands. In the prone position, following sterile prep and drape of the cervical region, the C7/T1 translaminar space was identified fluoroscopically. The skin was anesthetized via a 25-gauge 1.5-inch needle with 1% lidocaine solution. At this point, a 25-gauge, 2.5-inch short bevel spinal needle was atraumatically introduced and advanced under fluoroscopic guidance into epidural space at the C7/T1 translaminar space. Depth was confirmed on lateral view. Radiological data, including multiple fluoroscopic views of the cervical spine, reveal a spinal needle at the C7/T1 translaminar space. Lateral views then show placement of the needle in the epidural space. Subsequent views show contrast material flowing superiorly and inferiorly in the epidural space. DSA fl uoroscopy with live contrast injection, once again, confirmed no vascular or intrathecal uptake. At this point, using loss of resistance technique with saline and air, the epidural space was entered. Following negative aspiration, injection of approximately 1.5 cc of Isovue-200 with live fluoroscopy in the AP view confirmed epidural flow in the epidural space without vascular or intrathecal up take observed. Subsequently, a test dose of 1 cc of 1% lidocaine solution was injected and patient was observed for two minutes without signs or symptoms of complications, including abdominal pain, shortness of breath, bilateral upper or lower extremity weakness, nausea and vomiting, prior to steroid injection. At this point, 2cc or 20mg of dexamethasone was then injected without incident. The patient tolerated the procedure well without signs or symptoms of complications prior to transfer to the recovery area for further monitoring The patient was then transferred to the recovery area where they were observed for an appropriate period of time after the injection. The patient reported a VAS score of 6 prior to the procedure and a post-procedure VAS of 0 POST OP INSTRUCTIONS The patient was provided a Pain Log to continue to record the patient's response to the target-specific procedure prior to the patient's follow-up visit with the referring physician. Additionally, specific post-injection care instructions and a contact number to our office were provided if concerns arise regarding possible complications associated with the procedure are suspected.
== END 2024-02-19 10:19 | disposition home or self-care (01) ==
LOC: RAD 09:08
PROVIDERS: Family Provider Pediatrics; PCP Student in an Organized Health Care Education/Training Program; Referring Provider Physical Medicine & Rehabilitation; Visit Provider Physical Medicine & Rehabilitation
DX: M48.02 Spinal stenosis, cervical region (principal); M50.13 Cervical disc disorder with radiculopathy, cervicothoracic region
CPT/HCPCS: 62321; 99152; J1100; J2250; J3490

== ENCOUNTER → 2024-06-19 13:07 | Outpatient (CLI) | payer BC, SELFPAY ==
--- NOTE | 2024-06-19 13:08 | DI.RAD.S_ITS ---
PROCEDURE: XR LUMBAR SPINE MIN 4V INDICATIONS: BACK PAIN TECHNIQUE: 5 views of the lumbar spine were acquired, including bilateral oblique views. COMPARISON: [facility], CR, XR LUMBAR SPINE MIN 4V, 03/21/2021, 13:27. [facility], CR, XR LUMBAR SPINE 2-3V, 01/08/2018, 16:32. FINDINGS: Bones: 5 nonrib-bearing vertebrae are present. Levocurvature of the thoracolumbar spine. Posterior spinal fixation spanning L2 through S1 with discectomy. Decreased osseous mineralization. Significant degenerative changes are noted superior to the hardware with disc height loss, osteophytosis and facet arthropathy. No vertebral body compression fractures. No suspicious bony lesions. Soft tissues: Overlying bowel gas pattern is normal. No suspicious soft tissue calcifications. Oblique images: No definite pars defects, however evaluation is limited secondary to hardware. IMPRESSION: Stable appearance of L2 through L5 posterior spinal fixation hardware without evidence of hardware complication. Redemonstration of degenerative changes superior to the hardware. Dictated by: Rolando Tuttle M.D. on 06/19/2024 at 14:01 Approved by: Rolando Tuttle M.D. on 06/19/2024 at 14:04
--- NOTE | 2024-06-19 13:08 | DI.RAD.S_ITS ---
PROCEDURE: XR CERVICAL SPINE 4V OR 5V INDICATIONS: NECK PAIN TECHNIQUE: 5 views of the cervical spine acquired. COMPARISON: [facility], CR, XR CERVICAL SPINE 4V OR 5V, 10/26/2021, 14:53. [facility], CR, XR CERVICAL SPINE 4V OR 5V, 07/02/2018, 14:07. FINDINGS: Bones: No fractures or dislocations to the C7 level. Oblique images demonstrate mild multilevel bony foraminal stenoses. Straightening of the normal cervical lordosis. Grade 1 anterolisthesis of C3 on C4. Severe degenerative changes C4 through C7 with disc height loss, osteophytosis and facet and uncovertebral arthropathy. Soft tissues: No prevertebral soft tissue swelling. IMPRESSION: Multilevel degenerative changes of the cervical spine as described above. Dictated by: Rolando Tuttle M.D. on 06/19/2024 at 14:04 Approved by: Rolando Tuttle M.D. on 06/19/2024 at 14:06
== END ==
PROVIDERS: Family Provider Pediatrics; PCP Student in an Organized Health Care Education/Training Program; Referring Provider Physical Medicine & Rehabilitation; Visit Provider Physical Medicine & Rehabilitation
DX: M47.812 Spondylosis without myelopathy or radiculopathy, cervical region (principal); M48.02 Spinal stenosis, cervical region; M47.816 Spondylosis without myelopathy or radiculopathy, lumbar region; Z98.1 Arthrodesis status
CPT/HCPCS: 72050; 72110

== ENCOUNTER → 2024-06-24 12:34 | Outpatient (CLI) | payer BC, SELFPAY ==
--- NOTE | 2024-06-24 12:34 | DI.ECHO.S_ITS ---
[place] [facility] : : [address] : : [place] : : [id number] : : Phone: [phone] Echocardiogram Report + + :Name: GALO ELLISON Study Date: 06/24/2024 Height: 60 in : :[facility] ReadingLocation: Weight: 122 lb : : Gender: Female BSA: 1.5 m2 : :: 1960 Age: 63 yrs BP: 133/85 mmHg: :Reason For Study: HYPERTENSION : :Ordering Physician: STEPHANIA, : :KIT Performed By: Amy Linares : :Referring: KIT CAT : + + Interpretation Summary The ejection fraction is estimated to be 60-65%. Diastolic parameters suggest probable normal left ventricular diastolic function and normal filling pressures. The left atrium is mildly dilated. The right ventricle is normal in size and function. There is mild mitral regurgitation. Pulmonary artery pressures cannot be estimated because of the lack of a measurable TR jet velocity but the IVC suggests a CVP of around 8 mmHg. Procedure: A two-dimensional transthoracic echocardiogram with color flow and Doppler was performed. The study quality was technically adequate. There is no prior echocardiogram noted for this patient. The patient was in sinus rhythm with heart rates between 66-74 bpm during the exam. Left Ventricle: The left ventricle is normal in size. Proximal septal thickening is noted. The ejection fraction is estimated to be 60-65%. Diastolic parameters suggest probable normal left ventricular diastolic function and normal filling pressures. Right Ventricle: The right ventricle is normal in size and function. Atria: The left atrium is mildly dilated. Right atrial size is normal. The atrial septum is aneurysmal. There is no Doppler evidence for an interatrial shunt. Mitral Valve: The mitral valve leaflets appear to open well. There is mild mitral regurgitation. Aortic Valve: The aortic valve is trileaflet. The aortic valve opens well. There is no aortic valve stenosis. No aortic regurgitation is present. Tricuspid Valve: The tricuspid valve leaflets are thin and pliable. There is trace tricuspid regurgitation. Pulmonary artery pressures cannot be estimated because of the lack of a measurable TR jet velocity but the IVC suggests a CVP of around 8 mmHg. Pulmonic Valve: The pulmonic valve leaflets are thin and pliable; valve motion is normal. There is mild pulmonic regurgitation. Great Vessels: The aortic root is normal size. The dimensions of the ascending aorta are normal. The IVC is dilated (diameter is greater than 2.1 cm) yet it collapses greater than 50% with a sniff. This suggests a right atrial pressure of 8 mm Hg. Pericardium/ Pleura There is no pericardial effusion. There is no pleural effusion. MMode/2D Measurements & Calculations LVIDd: 3.4 cm LVOT diam: 2.0 cm LVIDs: 2.5 cm Ao root diam: 3.0 cm FS: 26.3 % asc Aorta Diam: 2.9 cm IVSd: 1.1 cm LVPWd: 0.91 cm LV mari. diameter/BSA (cm/m^2): 2.2 LV sys. diameter/BSA (cm/m^2): 1.7 LA A2 area: 22.2 cm2 RA long axis: 5.3 cm LA A4 area: 13.6 cm2 RA area: 15.1 cm2 LA length (vol): 4.7 cm RA vol: 36.4 ml LA vol: 54.9 ml RA : 24.1 ml/m2 LA vol index: 36.3 ml/m2 IVC diam: 2.1 cm RVD1 (basal): 3.0 cm RVD2 (mid): 3.0 cm TAPSE: 1.6 cm Doppler Measurements & Calculations Ao V2 max: 137.1 cm/sec LVOT Max Ramiro: 95.1 cm/sec Ao V2 mean: 93.3 cm/sec LV V1 max P.6 mmHg Ao max P.5 mmHg LV V1 VTI: 18.8 cm Ao mean P.9 mmHg ROBERT(I,D): 2.3 cm2 Ao V2 VTI: 26.3 cm ROBERT(V,D): 2.2 cm2 sev ratio: 0.72 ROBERT indexed to BSA (cm^2/m^2): 1.5 MV E max ramiro: 53.4 cm/sec PA V2 max: 100.1 cm/sec MV A max ramiro: 71.8 cm/sec PA V2 mean: 63.1 cm/sec MV E/A: 0.74 PA mean P.9 mmHg Med Peak E' Ramiro: 8.4 cm/sec PA pr(Accel): 34.5 mmHg E/E' med: 6.4 Lat Peak E' Ramiro: 12.7 cm/sec E/E' lat: 4.2 E/e' average: 5.3 MV dec time: 0.23 sec SV(LVOT): 60.4 ml Reading Physician:04:49 PM
== END ==
PROVIDERS: Family Provider Pediatrics; PCP Student in an Organized Health Care Education/Training Program; Referring Provider Student in an Organized Health Care Education/Training Program; Visit Provider Student in an Organized Health Care Education/Training Program
DX: I34.0 Nonrheumatic mitral (valve) insufficiency (principal); I37.1 Nonrheumatic pulmonary valve insufficiency; I10 Essential (primary) hypertension
CPT/HCPCS: 93306

== ENCOUNTER → 2024-08-11 17:23 | Outpatient (CLI) | payer BC, SELFPAY ==
--- NOTE | 2024-08-11 17:24 | DI.MRI.S_ITS ---
PROCEDURE: MR CERVICAL SPINE WO CON INDICATIONS: Progressive cervical myeloradiculopathy TECHNIQUE: Noncontrast sagittal T1 spin echo and T2 fast spin echo, sagittal STIR, foraminal oblique sagittal T2 fast spin echo, and axial gradient echo or T2 fast spin echo through the cervical spine. COMPARISON: [facility], MR, MR CERVICAL SPINE WO CON, 02/21/2023, 15:34. FINDINGS: Alignment and Curvature: Grade 1 anterior spondylolisthesis at C3-4. Straightening the normal cervical lordosis Bone Marrow: C5-6 interbody fusion with good graft incorporation. No instrumentation Spinal Cord: Visualized spinal cord has normal size and signal. No cerebellar tonsillar herniation. Paraspinous Soft Tissues: No paravertebral masses. Prevertebral soft tissues are normal in thickness. C2-C3: Normal appearance. C3-C4: Broad-based disc osteophyte complex and arthropathy. Moderate central stenosis. Severe right and mild left foraminal stenosis. C4-C5: Posterior disc osteophyte complex results in moderate central stenosis. Hypertrophic arthropathy. Moderate right and severe left foraminal stenosis. C5-C6: Discectomy and fusion. No central stenosis. Hypertrophic arthropathy. Mild right and no left foraminal stenosis C6-C7: Posterior disc osteophyte complex results in moderate central stenosis. Hypertrophic arthropathy. Severe left and severe right foraminal stenosis. C7-T1: Hypertrophic arthropathy. No central stenosis. Moderate bilateral foraminal stenosis greater on the left IMPRESSION: Multilevel degenerative disc disease and arthropathy results in varying degrees of central and foraminal stenosis including moderate central and severe foraminal stenosis C3-4, C4-5 and C6-7. Approved by: Marcelino Blue M.D. on 08/12/2024 at 12:34
== END ==
PROVIDERS: Family Provider Pediatrics; PCP Student in an Organized Health Care Education/Training Program; Referring Provider Physical Medicine & Rehabilitation; Visit Provider Physical Medicine & Rehabilitation
DX: M48.02 Spinal stenosis, cervical region (principal); M47.812 Spondylosis without myelopathy or radiculopathy, cervical region; M50.31 Other cervical disc degeneration, high cervical region; Z98.1 Arthrodesis status
CPT/HCPCS: 72141

== ENCOUNTER → 2024-09-25 13:05 | Outpatient (CLI) | payer BC, SELFPAY ==
[2024-09-25 13:54] LABS: Add Manual Diff / Slide Review NO; Basophils Absolute Auto 0 /uL (0-100); Basophils Percent Auto 0.4 % (0-2); Eosinophils Absolute Auto 100 /uL (0-450); Eosinophils Percent Auto 1.1 % (2-4); Hematocrit 39.9 % (36-46); Hemoglobin 13.7 g/dL (12.0-16.0); Lymphocytes Absolute Auto 1300 /uL (1100-4500); Lymphocytes Percent Auto 24.8 % (25-40); Mean Corpuscular HGB Conc 34.3 % (30-36); Mean Corpuscular Hemoglobin 31.9 PG (26-34); Mean Corpuscular Volume 93.1 fL (80-100); Monocytes Absolute Auto 400 /uL (0-900); Monocytes Percent Auto 6.8 % (3-14); Neutrophils Absolute Auto 3500 /uL (1500-7000); Neutrophils Percent Auto 66.9 % (50-75); Platelet Count 217 X10^3/uL (150-400); Red Blood Cell Count 4.28 X10^6/uL (4.0-5.2); Red Cell Distribution Width 12.6 % (11.6-14.8); White Blood Cell Count 5.2 X10^3/uL (4.5-11.0)
[2024-09-25 14:19] LABS: Alanine Aminotransferase 23 IU/L (<35); Albumin 4.9 g/dL (3.5-5.0); Albumin Globulin Ratio 1.8 (1.0-2.8); Alkaline Phosphatase 70 U/L (38-126); Aspartate Aminotransferase 27 IU/L (14-36); BUN Creatinine Ratio 39.6 (6-22); Bilirubin Total 0.5 mg/dL (0.2-1.3); Blood Urea Nitrogen 21 mg/dL (7-17); C-Reactive Protein Quant < 0.5 mg/dL (<1.0); Carbon Dioxide 26 mmol/L (22-32); Chloride 101 mmol/L (98-107); Estimated Glomerular Filt Rate > 60 mL/min (>60); Globulin 2.8 g/dL (1.7-4.1); Glucose 105 mg/dL (70-99); HEMOLYSIS < 15 (0-50); Potassium 4.4 mmol/L (3.4-5.1); Sodium 137 mmol/L (137-145); Total Protein 7.7 g/dL (6.3-8.2)
[2024-09-25 15:05] LABS: Vitamin B12 940 pg/mL (239-931)
[2024-09-25 15:23] LABS: Estradiol, Total 365.2 pg/mL
== END ==
PROVIDERS: Family Provider Pediatrics; PCP Student in an Organized Health Care Education/Training Program; Referring Provider Nurse Practitioner Family; Visit Provider Nurse Practitioner Family
DX: E34.8 Other specified endocrine disorders (principal)
CPT/HCPCS: 36415; 80053; 82607; 82627; 82670; 84144; 84402; 84403; 85025; 86140

== ENCOUNTER 2024-10-09 09:39 | Outpatient (CLI) | payer BC, SELFPAY ==
[2024-10-09] VITALS (9 sets, daily range): BP systolic 100–155; BP diastolic 57–79; PULSE 65–80; RESP 16–22; TEMP 36.1; O2SAT 95–100
[2024-10-09] MEDS: MIDAZOLAM 2 MG/2 ML VIAL IV (11:04)
[2024-10-09] MEDS: BUPIVACAINE 0.25% (PF) VIAL 2 ML INJ (11:11)
[2024-10-09] MEDS: DEXAMETHASONE 10 MG/ML VIAL 30 MG INJ (11:11)
[2024-10-09] MEDS: iopamidoL 15 ML VIAL 3 ML INJ (11:12)
--- NOTE | 2024-10-09 11:27 | P.PCN_ITS ---
Date/Time/Diagnoses Date of procedure: 10/09/24 Time of procedure: 11:27 Pre-procedure diagnosis: Thoracic stenosis with HNP Post-procedure diagnosis: same Procedure Notes Procedure: Fluoroscopic guided, contrast controlled T9/10 translaminar epidural steroid injection with conscious sedation. Indications: Xiao is referred by Dr. Gtz for treatment of thoracic DDD/DJD with radiculopathy Physician: Issac Gaspar Total Fluoroscopy time (seconds): 24 Total sedation minutes: 20 Complications: none Procedure in detail & Post-procedure care: DESCRIPTION OF PROCEDURE Fluoroscopic guided, contrast controlled T9/10 translaminar epidural steroid injection with conscious sedation. Following review of allergy review potential side effects and complications, including, but not necessarily limited to, infection, allergic reaction, local tissue breakdown, temporary as well as permanent nerve injury, stroke, paralysis and possible , the patient indicated that they understood and agreed to proceed. An informed consent document was signed by the patient, witnessed by the nurse, and placed in the patient's chart. Additionally other treatment options including modalities, medications and physical therapy were reviewed with the patient. After review of previous anaesthesic history and IV conscious sedation the patient was deemed safe to proceed with today's procedure with IV conscious veronica tion as ASA class II designation. Safety time-out was performed to confirm patient ID, procedure to be performed and site of procedure. IV sedation was accomplished with a combination of 2mg of Versed administered by the RN after DO order, titrated to patient comfort during the course of the procedure while the patient remained responsive to all verbal commands In the prone position, following sterile prep and drape of the thoracic region the T9/10 translaminar space was identified fluoroscopically. The skin was anesthetized via 25 gauge 1.5inch needle with 1% lidocaine solution. At this po int a 22gauge epidural needle was atraumatically introduced and advanced under fluoroscopic guidance into the region of the T9/10 translaminar space depth was confirmed on lateral view. Radiographic data, including multiple fluoroscopic views of the thoracic spine, reveals spinal needle at the T9/10 translaminar space. Lateral views then showed the placement of the needle in the epidural space. Subsequent view show contrast material flowing superiorly and inferiorly in the epidural space. No vascular or intrathecal uptake is observed. At this point using loss of resistance technique with saline and the epidural space was entered. This was confirmed followed negative aspiration and injection of approximately 1.5cc of Isovue 200 showed excellent epidural flow without vascular or intrathecal uptake. At this point, 1cc of 0.25%marcaine solution was admitted as a test dose and the patient was observed for an appropriate period of time without signs or symptoms of complications, including abdominal pain, shortness of breath, bilateral upper and lower extremity weakness, nausea and vomiting, prior to steroid injection. Subsequently, 3cc or 30mg of dexamethasone was then injected without incident. The patient tolerated the procedure well without signs of complications and subsequently was transferred to the recovery room for further monitoring. The patient was then transferred to the recovery area with their observed for an appropriate time after the injection. Patient reported a VAS score of 7 prior to the procedure and post-procedure VAS of 2.
== END 2024-10-09 11:50 | disposition home or self-care (01) ==
PROVIDERS: Family Provider Pediatrics; PCP Student in an Organized Health Care Education/Training Program; Referring Provider Physical Medicine & Rehabilitation; Visit Provider Physical Medicine & Rehabilitation
DX: M48.04 Spinal stenosis, thoracic region (principal); M51.14 Intervertebral disc disorders with radiculopathy, thoracic region; M47.24 Other spondylosis with radiculopathy, thoracic region
CPT/HCPCS: 62321; 99152; 99153; J1100; J2250

== ENCOUNTER → 2025-01-08 12:09 | Outpatient (CLI) | payer BC, SELFPAY ==
[2025-01-08 12:37] LABS: Add Manual Diff / Slide Review NO; Hematocrit 39.2 % (36-46); Hemoglobin 13.5 g/dL (12.0-16.0); Lymphocytes Absolute Auto 1400 /uL (1100-4500); Mean Corpuscular HGB Conc 34.4 % (30-36); Mean Corpuscular Hemoglobin 31.9 PG (26-34); Mean Corpuscular Volume 92.5 fL (80-100); Platelet Count 222 X10^3/uL (150-400)
[2025-01-08 13:16] LABS: Glucose 81 mg/dL (70-99)
[2025-01-08 16:43] LABS: Progesterone, Total 12.70 ng/mL
[2025-01-08 16:59] LABS: Estradiol, Total 8.1 pg/mL
== END ==
PROVIDERS: Family Provider Pediatrics; PCP Student in an Organized Health Care Education/Training Program; Referring Provider Nurse Practitioner Family; Visit Provider Nurse Practitioner Family
DX: E34.8 Other specified endocrine disorders (principal)
CPT/HCPCS: 36415; 82627; 82670; 82947; 84144; 84402; 84403; 85025

== ENCOUNTER → 2025-02-26 13:08 | Outpatient (CLI) | payer BC, SELFPAY ==
--- NOTE | 2025-02-26 13:10 | DI.RAD.S_ITS ---
PROCEDURE: XR THORACIC SPINE 3V INDICATIONS: RIB PAIN TECHNIQUE: 3 views of the thoracic spine were acquired. COMPARISON: [facility], MR, MR THORACIC SPINE WO CON, 02/21/2023, 15:34. FINDINGS: Bones: Postsurgical changes are seen in the lumbar spine. Scoliotic curvature is demonstrated. No fractures or dislocations. No suspicious bony lesions. 12 pairs of ribs are noted, and appear intact where visualized. Soft tissues: No paravertebral stripe thickening. IMPRESSION: No acute osseous abnormality. If symptoms persist or if there is continued clinical concern, cross-sectional imaging such as MRI or CT may be helpful for further evaluation. Approved by: Braden Monroe M.D. on 02/26/2025 at 13:57
== END ==
LOC: RAD 13:10
PROVIDERS: Family Provider Pediatrics; PCP Student in an Organized Health Care Education/Training Program; Referring Provider Student in an Organized Health Care Education/Training Program; Visit Provider Physical Medicine & Rehabilitation
DX: M54.14 Radiculopathy, thoracic region (principal); M41.9 Scoliosis, unspecified
CPT/HCPCS: 72072

== ENCOUNTER → 2025-04-20 13:30 | Outpatient (CLI) | payer BC, SELFPAY ==
[2025-04-20 15:22] LABS: Cholesterol 232 mg/dL (140-199); HDL Cholesterol 46 mg/dL (40-60); Triglycerides 164 mg/dL (35-150)
== END ==
PROVIDERS: Family Provider Pediatrics; PCP Student in an Organized Health Care Education/Training Program; Referring Provider Nurse Practitioner Family; Visit Provider Nurse Practitioner Family
DX: Z13.220 Encounter for screening for lipoid disorders (principal); E03.8 Other specified hypothyroidism; N95.1 Menopausal and female climacteric states; I10 Essential (primary) hypertension; Z79.899 Other long term (current) drug therapy
CPT/HCPCS: 36415; 80061; 82043; 82570

== ENCOUNTER 2025-04-23 09:03 | Outpatient (CLI) | payer BC, SELFPAY ==
[2025-04-23] VITALS (8 sets, daily range): BP systolic 128–148; BP diastolic 72–94; PULSE 72–82; RESP 14–18; O2SAT 96–99
[2025-04-23] MEDS: MIDAZOLAM 2 MG/2 ML VIAL IV (10:27)
--- NOTE | 2025-04-23 10:55 | P.PCN_ITS ---
Date/Time/Diagnoses Date of procedure: 04/23/25 Time of procedure: 10:55 Pre-procedure diagnosis: Thoracic stenosis with HNP Post-procedure diagnosis: same Procedure Notes Procedure: Fluoroscopic guided, contrast controlled T9/10 translaminar epidural steroid injection with conscious sedation. Indications: Xiao is referred by Dr. Gtz for treatment of thoracic DDD/DJD with radiculopathy Physician: Issac Gaspar Total Fluoroscopy time (seconds): 24 Total sedation minutes: 14 Complications: none Procedure in detail & Post-procedure care: DESCRIPTION OF PROCEDURE Fluoroscopic guided, contrast controlled T9/10 translaminar epidural steroid injection with conscious sedation. Following review of allergy review potential side effects and complications, including, but not necessarily limited to, infection, allergic reaction, local tissue breakdown, temporary as well as permanent nerve injury, stroke, paralysis and possible , the patient indicated that they understood and agreed to proceed. An informed consent document was signed by the patient, witnessed by the nurse, and placed in the patient's chart. Additionally other treatment options including modalities, medications and physical therapy were reviewed with the patient. After review of previous anaesthesic history and IV conscious sedation the patient was deemed safe to proceed with today's procedure with IV conscious veronica tion as ASA class II designation. Safety time-out was performed to confirm patient ID, procedure to be performed and site of procedure. IV sedation was accomplished with a combination of 2mg of Versed administered by the RN after DO order, titrated to patient comfort during the course of the procedure while the patient remained responsive to all verbal commands In the prone position, following sterile prep and drape of the thoracic region the T9/10 translaminar space was identified fluoroscopically. The skin was anesthetized via 25 gauge 1.5inch needle with 1% lidocaine solution. At this po int a 22gauge epidural needle was atraumatically introduced and advanced under fluoroscopic guidance into the region of the T9/10 translaminar space depth was confirmed on lateral view. Radiographic data, including multiple fluoroscopic views of the thoracic spine, reveals spinal needle at the T9/10 translaminar space. Lateral views then showed the placement of the needle in the epidural space. Subsequent view show contrast material flowing superiorly and inferiorly in the epidural space. No vascular or intrathecal uptake is observed. At this point using loss of resistance technique with saline and the epidural space was entered. This was confirmed followed negative aspiration and injection of approximately 1.5cc of Isovue 200 showed excellent epidural flow without vascular or intrathecal uptake. At this point, 1cc of 0.25%marcaine solution was admitted as a test dose and the patient was observed for an appropriate period of time without signs or symptoms of complications, including abdominal pain, shortness of breath, bilateral upper and lower extremity weakness, nausea and vomiting, prior to steroid injection. Subsequently, 3cc or 30mg of dexamethasone was then injected without incident. The patient tolerated the procedure well without signs of complications and subsequently was transferred to the recovery room for further monitoring. The patient was then transferred to the recovery area with their observed for an appropriate time after the injection. Patient reported a VAS score of 7 prior to the procedure and post-procedure VAS of 2.
== END 2025-04-23 11:17 | disposition home or self-care (01) ==
LOC: RAD 09:04
PROVIDERS: Family Provider Pediatrics; PCP Student in an Organized Health Care Education/Training Program; Referring Provider Physical Medicine & Rehabilitation; Visit Provider Physical Medicine & Rehabilitation
DX: M48.04 Spinal stenosis, thoracic region (principal); M51.14 Intervertebral disc disorders with radiculopathy, thoracic region
CPT/HCPCS: 62321; 99152; J1100; J2250

== ENCOUNTER → 2025-05-06 12:52 | Outpatient (CLI) | payer BC, SELFPAY ==
--- NOTE | 2025-05-06 12:54 | DI.MG.S_ITS ---
MM screening mammo BI: 05/06/2025. BI-RADS: 1 CLINICAL: 64-year old female for bilateral screening mammogram. Tyrer-Cuzick lifetime risk of 10.1%. No personal or first-degree family history of breast cancer. Current reported family history of breast cancer: maternal grandmother, maternal aunt and second maternal aunt's daughter. PRIOR EXAMS 07/11/2023, 06/27/2022, 06/22/2021, 11/04/2020. MAMMOGRAPHY TECHNIQUE: 2D and 3D (tomosynthesis) digital mammographic views obtained, with additional images as needed for full coverage. Current study was also evaluated with a Computer Aided Detection (CAD) system. DENSITY C. The breasts are heterogeneously dense, which may obscure small masses. MAMMOGRAPHY FINDINGS Bilateral: No suspicious mass, asymmetry, microcalcification, or other abnormality seen. IMPRESSION: * No evidence of malignancy. RECOMMENDATIONS Bilateral * Annual screening mammography. OVERALL ASSESSMENT CATEGORY BI-RADS-1: Negative. The [employer] recommends annual screening mammography beginning at age 40 for women with average risk of breast cancer. ELECTRONICALLY SIGNED: Allison Croft M.D. on 05/08/2025 at 01:55:23 PM PT Interpreting Station ID: [id number]
== END ==
PROVIDERS: PCP Student in an Organized Health Care Education/Training Program; Referring Provider Student in an Organized Health Care Education/Training Program; Visit Provider Student in an Organized Health Care Education/Training Program
DX: Z12.31 Encounter for screening mammogram for malignant neoplasm of breast (principal); R92.333 Mammographic heterogeneous density, bilateral breasts; Z80.3 Family history of malignant neoplasm of breast
CPT/HCPCS: 77063; 77067

== ENCOUNTER → 2025-05-06 13:26 | Outpatient (CLI) | payer BC, SELFPAY ==
[2025-05-06 14:01] LABS: Add Manual Diff / Slide Review NO; Hematocrit 38.7 % (36-46); Hemoglobin 13.5 g/dL (12.0-16.0); Lymphocytes Absolute Auto 1400 /uL (1100-4500); Mean Corpuscular HGB Conc 34.8 % (30-36); Mean Corpuscular Hemoglobin 30.5 PG (26-34); Mean Corpuscular Volume 87.7 fL (80-100); Platelet Count 192 X10^3/uL (150-400)
[2025-05-06 14:53] LABS: Free T3, Triiodothyronine Free 3.36 pg/mL (2.77-5.27); Free T4, Direct Thyroxine 0.91 ng/dL (0.78-2.19)
[2025-05-06 15:07] LABS: Thyroid Stimulating Hormone 0.120 uIU/mL (0.47-4.68)
[2025-05-06 15:34] LABS: Progesterone, Total 1.10 ng/mL
[2025-05-06 15:50] LABS: Estradiol, Total 18.5 pg/mL
== END ==
PROVIDERS: PCP Student in an Organized Health Care Education/Training Program; Referring Provider Nurse Practitioner Family; Visit Provider Nurse Practitioner Family
DX: N95.1 Menopausal and female climacteric states (principal); Z79.899 Other long term (current) drug therapy; E03.8 Other specified hypothyroidism
CPT/HCPCS: 82670; 84144; 84403; 84439; 84443; 84481; 85025